=== PATIENT | female | born 1955 | race American Indian/Alaskan Native ===

== ENCOUNTER 2016-09-25 07:32 | Outpatient (CLI) | payer BC ==
--- NOTE | 2016-09-26 07:48 | Vascular Lab Report ---
LOWER EXTREMITY ARTERIAL DUPLEX: REASON FOR EXAM: Peripheral arterial disease with claudication. COMMENTS ON THE RIGHT: Monophasic waveforms are seen proximally. Monophasic waveforms are seen distally. No significant velocity gradients are identified. Calcified plaque is noted in the external iliac and common femoral arteries.. Findings are consistent with abnormal perfusion. Findings are inconsistent with the ability to heal distal wounds. COMMENTS ON THE LEFT: Triphasic waveforms are seen proximally. Biphasic waveforms are seen distally. No significant velocity gradients are identified. No focal significant plaque is identified. Findings are consistent with normal perfusion. Findings are consistent with the ability to heal distal wounds. IMPRESSION: RIGHT: External iliac and common femoral artery occlusive disease. LEFT:Essentially normal arterial flow.
== END 2016-09-25 07:33 | disposition home or self-care (01) ==
LOC: VAS 07:32
PROVIDERS: ATTEND Internal Medicine
DX: I74.5 Embolism and thrombosis of iliac artery (principal); I74.8 Embolism and thrombosis of other arteries
CPT/HCPCS: 93925

== ENCOUNTER 2016-10-24 08:31 | Outpatient (CLI) | payer BC ==
--- NOTE | 2016-10-24 12:31 | Cat Scan Report ---
CT ABDOMEN AND PELVIS WITH CONTRAST: 10/24/16 08:31:00 CLINICAL: Weight loss. COMPARISON: 02/02/14 TECHNIQUE: Volumetric acquisition and 1.25 millimeter scan reconstructions after the uneventful intravenous injection of 100 cc Omnipaque 300. Consent was obtained prior to the administration of contrast. Oral contrast was also given. FINDINGS: Abdomen: The lung bases are clear.Normal liver, bile ducts and gallbladder. The stomach is mildly distended with fluid and air. The gastric wall is thickened in the fundus and body and there is pronounced thickening of the pylorus. No gastric mass or ulcer is identified. The small bowel is normal. The colon is normal and filled with stool.An appendix is not identified. No mass, lymphadenopathy or ascites.The adrenal glands are normal. The right kidney is normal with a nondilated renal collecting system and ureter. An oval solid homogeneously enhancing mass in the center of the left kidney measures 3.6 x 2.2 x 1.6 cm. The mass is adjacent to a normal left renal collecting system. The mass measures 170 Hounsfield units post contrast and demonstrates washout with a density of 80 Hounsfield units on delayed scans. The left ureter is normal. Calcification of the abdominal aorta and iliac arteries. The inferior vena cava is normal. Pelvis: Normal urinary bladder.The uterus is not optimally imaged because of the lack of pelvic fat but it appears to be normal size. Ovaries are not identified. A low rectosigmoid anastomosis is unremarkable. Bone windows demonstrate no bone lesion. IMPRESSION:1. A 3.6 cm central left renal mass is suspicious for primary renal neoplasm. Although it is central, it does not appear to arise within the collecting system. 2. Status post rectosigmoid resection and no suspicion of disease recurrence or metastasis.
== END 2016-10-24 08:32 | disposition home or self-care (01) ==
LOC: SPVIMAG 08:31
PROVIDERS: ATTEND Internal Medicine Gastroenterology
DX: K31.89 Other diseases of stomach and duodenum (principal); R63.4 Abnormal weight loss; N28.89 Other specified disorders of kidney and ureter; K63.89 Other specified diseases of intestine; I70.0 Atherosclerosis of aorta
CPT/HCPCS: 74177; Q9967

== ENCOUNTER 2017-05-01 18:52 | Inpatient (IN) | payer BC ==
[2017-05-01] MEDS ORDERED: NACL 0.9% 1000 ML 1,000 ML ONE ×3 (19:18→20:14)
[2017-05-01] MEDS ORDERED: LEVOPHED DRIP 4 MG/NS 250 ML 4 MG/250 ML BAG IV ONE ×2 (19:30→20:14)
[2017-05-01] MEDS ORDERED: VANCOMYCIN VIAL IV ONE (20:09)
[2017-05-01] MEDS ORDERED: ARTIFICIAL TEARS OPHTH OINT OU PRN (20:09)
[2017-05-01] MEDS ORDERED: VASELINE LIP THERAPY TP PRN (20:09)
[2017-05-01] MEDS ORDERED: NACL 0.9% 1000 ML 2,000 ML IV ONE (20:09)
[2017-05-01] MEDS ORDERED: ZEMURON IV ONE (20:09)
--- NOTE | 2017-05-01 20:15 | Emergency Department Report ---
ED General Adult HPI - General Chief complaint: Dyspnea/Respdistress Stated complaint: ALTERED MENTAL STATUS Time Seen by Provider: 05/01/17 19:14 Source: family, EMS (ems notes not available at time of chart dictation), RN notes reviewed Mode of arrival: Stretcher Limitations: Altered Mental Status - History of Present Illness Initial comments: This is a 61-year-old female, previously unknown to this provider, brought to the hospital by EMS and family for weakness, altered mental status and shortness of breath. History is limited as the patient is obtunded and unable to answer questions. Upon my initial evaluation, patient is obtunded, not protecting her airway, saturating at 87-89% on a nonrebreather. Quick discussion had with close by family, who give verbal permission for aggressive medical management, including intubation and central line placement, if necessary. Patient also hypotensive as well, blood pressure in the 70s. Patient is placed on a nasal cannula at 15 L/m, perceives [id number] ventilation, and IV fluids wide open. Patient is induced with 100 mg of ketamine, and a 7.5 endotracheal tube is inserted by myself using direct laryngoscopy, with a Tara 3 of her discomfort, with one attempt, with no difficulty in complications. Immediately after intubation, patient was prepped for a central line, and a left-sided internal jugular central line was placed by this provider, using ultrasound guidance, with one attempt, no obvious complications. Patient started on norepinephrine through central line, and addition to IV fluids. Found to be hypothermic with a core temperature of 92.3 rectally, therefore medicine. Please encourage sepsis. A noncontrast CT scan of the brain was negative, an x-ray of the chest suggested hyperinflated lung/COPD, which family further corroborated. Patient was disconnected from the ventilator circuit, and chest wall pressure was applied to avoid breath stacking. The patient was then ventilated lung protective strategy, using 6-8 mL/kg of ideal body weight. Patient treated empirically with vancomycin, cefepime, IV fluids, and addition to norepinephrine. Case was discussed with the critical care physician on-call , Dr. Alcocer, who agreed with placement into the intensive care unit. Case was discussed with the Hospital physician, Dr. Mine Galarza, who accepted the patient to the medical service. Patient still on norepinephrine, no urine output as of yet, blood pressure in the 120s, having minimal sedation requirements. Laboratory studies demonstrated renal insufficiency, hypernatremia, troponin leak, no obvious etiology of infection thus far, troponin leak likely secondary to underlying physiologic stress. -: unknown Consistency: constant Improves with: none Worsens with: none Associated Symptoms: confusion, weakness - Related Data Allergies Allergy/AdvReac Type Severity Reaction Status Date / Time No Known Allergies Allergy Unverified 09/25/16 07:33 ED Review of Systems ROS: Stated complaint: ALTERED MENTAL STATUS Other details as noted in HPI Comment: Unobtainable due to pts medical conditions ED Past Medical Hx - Past Medical History Hx of Cancer: Yes (colon 2008) Hx COPD: Yes (emphasema) - Surgical History Additional Surgical History: colon surgery - Social History Smoking Status: Current Every Day Smoker ED Physical Exam - General Limitations: Altered Mental Status General appearance: obtunded - Eye Eye exam: Present: PERRL - ENT ENT exam: Present: mucous membranes dry - Neck Neck exam: Absent: tenderness, meningismus - Respiratory Respiratory exam: Present: respiratory distress, decreased breath sounds - Cardiovascular Cardiovascular Exam: Present: regular rate, normal rhythm - GI/Abdominal GI/Abdominal exam: Present: soft, normal bowel sounds. Absent: distended, tenderness, guarding, rebound, rigid, pulsatile mass - Rectal Rectal exam: Present: normal inspection - External exam: Present: normal external exam - Extremities Exam Extremities exam: Present: normal inspection, normal capillary refill - Back Exam Back exam: Absent: tenderness, CVA tenderness (R) - Neurological Exam Neurological exam: Present: altered - Psychiatric Psychiatric exam: Present: other (nonverbal, and obtunded) - Skin Skin exam: Present: dry ED Course Vital Signs 05/01/17 05/01/17 05/01/17 19:02 20:09 20:18 Temperature 92.4 F L Pulse Rate 71 Respiratory 26 H Rate Blood Pressure 105/39 135/69 05/01/17 05/01/17 05/01/17 21:22 21:26 21:28 Temperature Pulse Rate 63 62 60 Respiratory 14 15 15 Rate Blood Pressure 147/70 98/53 121/79 05/01/17 05/01/17 05/01/17 21:30 21:32 21:34 Temperature Pulse Rate 60 59 L 58 L Respiratory 15 15 15 Rate Blood Pressure 121/79 05/01/17 05/01/1717 21:35 21:36 21:38 Temperature Pulse Rate 59 L 60 60 Respiratory 15 15 15 Rate Blood Pressure 125/78 125/78 125/78 05/01/17 05/01/17 05/01/17 21:40 21:42 21:44 Temperature Pulse Rate 58 L 58 L 57 L Respiratory 15 15 15 Rate Blood Pressure 131/78 104/51 104/51 05/01/17 05/01/17 05/01/17 21:45 21:46 21:48 Temperature Pulse Rate 57 L 57 L 58 L Respiratory 15 15 15 Rate Blood Pressure 127/78 127/78 127/78 05/01/17 05/01/17 05/01/17 21:50 21:51 21:52 Temperature Pulse Rate 61 61 58 L Respiratory 15 15 15 Rate Blood Pressure 155/86 155/86 119/76 05/01/17 05/01/17 05/01/17 21:54 21:55 21:56 Temperature Pulse Rate 58 L 61 59 L Respiratory 15 15 15 Rate Blood Pressure 119/76 127/79 127/79 05/01/17 05/01/17 05/01/17 21:58 22:00 22:02 Temperature Pulse Rate 59 L 60 59 L Respiratory 15 15 15 Rate Blood Pressure 127/79 124/79 124/79 05/01/17 05/01/17 05/01/17 22:04 22:05 22:06 Temperature Pulse Rate 62 61 60 Respiratory 15 15 15 Rate Blood Pressure 124/79 139/93 139/93 05/01/17 05/01/17 05/01/17 22:08 22:10 22:12 Temperature Pulse Rate 56 L 58 L 59 L Respiratory 15 15 15 Rate Blood Pressure 139/93 120/75 120/75 05/01/17 05/01/17 05/01/17 22:14 22:15 22:16 Temperature Pulse Rate 58 L 57 L 58 L Respiratory 15 15 15 Rate Blood Pressure 120/75 123/77 123/77 05/01/17 05/01/17 05/01/17 22:18 22:20 22:22 Temperature Pulse Rate 58 L 60 59 L Respiratory 15 15 16 Rate Blood Pressure 123/77 120/78 120/78 05/01/17 05/01/17 05/01/17 22:24 22:25 22:26 Temperature Pulse Rate 59 L 57 L 57 L Respiratory 15 15 15 Rate Blood Pressure 120/78 121/76 121/76 05/01/17 05/01/17 05/01/17 22:28 22:30 22:32 Temperature Pulse Rate 57 L 56 L 56 L Respiratory 15 15 15 Rate Blood Pressure 121/76 121/76 121/76 05/01/17 05/01/17 05/01/17 22:34 22:36 22:38 Temperature Pulse Rate 57 L 57 L 57 L Respiratory 15 15 15 Rate Blood Pressure 121/76 121/76 121/76 05/01/17 05/01/17 05/01/17 22:40 22:42 22:44 Temperature Pulse Rate 56 L 57 L 59 L Respiratory 15 15 15 Rate Blood Pressure 121/76 121/76 121/76 05/01/17 05/01/17 05/01/17 22:46 22:48 22:58 Temperature Pulse Rate 59 L 55 L 58 L Respiratory 15 15 15 Rate Blood Pressure 121/76 121/76 123/75 05/01/17 05/01/17 05/01/17 23:00 23:02 23:04 Temperature Pulse Rate 59 L 59 L 58 L Respiratory 15 15 15 Rate Blood Pressure 114/72 114/72 114/72 05/01/17 05/01/17 05/01/17 23:05 23:06 23:08 Temperature Pulse Rate 59 L 59 L 59 L Respiratory 15 15 15 Rate Blood Pressure 116/75 116/75 116/75 05/01/17 05/01/17 05/01/17 23:10 23:12 23:14 Temperature Pulse Rate 57 L 61 61 Respiratory 15 15 15 Rate Blood Pressure 117/74 117/74 117/74 05/01/17 05/01/17 05/01/17 23:15 23:16 23:18 Temperature Pulse Rate 59 L 59 L 58 L Respiratory 15 15 15 Rate Blood Pressure 121/77 121/77 121/77 05/01/17 05/01/17 05/01/17 23:20 23:22 23:24 Temperature Pulse Rate 57 L 61 67 Respiratory 15 15 15 Rate Blood Pressure 119/72 119/72 123/75 05/01/17 05/01/17 05/01/17 23:26 23:28 23:30 Temperature Pulse Rate 70 65 65 Respiratory 15 16 14 Rate Blood Pressure 123/75 123/75 123/75 05/01/17 05/01/17 05/01/17 23:32 23:34 23:36 Temperature Pulse Rate 63 62 60 Respiratory 15 15 15 Rate Blood Pressure 123/75 123/75 123/75 05/01/17 05/01/17 05/01/17 23:38 23:40 23:42 Temperature Pulse Rate 61 62 60 Respiratory 15 15 15 Rate Blood Pressure 123/75 123/75 123/75 05/01/17 05/01/17 05/01/17 23:44 23:46 23:48 Temperature Pulse Rate 61 58 L 61 Respiratory 15 15 15 Rate Blood Pressure 123/75 123/75 123/75 05/01/17 05/01/17 05/01/17 23:50 23:52 23:54 Temperature Pulse Rate 62 62 62 Respiratory 15 15 16 Rate Blood Pressure 123/75 123/75 123/75 05/01/17 05/01/17 05/02/17 23:56 23:58 00:00 Temperature Pulse Rate 61 60 62 Respiratory 14 15 15 Rate Blood Pressure 123/75 123/75 123/75 05/02/17 05/02/17 05/02/17 00:02 00:04 00:06 Temperature Pulse Rate 61 62 61 Respiratory 15 15 14 Rate Blood Pressure 123/75 123/75 123/75 05/02/17 05/02/17 05/02/17 00:08 00:10 00:12 Temperature Pulse Rate 61 62 66 Respiratory 16 15 16 Rate Blood Pressure 123/75 123/75 123/75 05/02/17 05/02/17 05/02/17 00:14 00:16 00:18 Temperature Pulse Rate 63 65 65 Respiratory 15 14 14 Rate Blood Pressure 123/75 123/75 123/75 05/02/17 05/02/17 05/02/17 00:20 00:22 00:24 Temperature Pulse Rate 66 66 58 L Respiratory 13 15 15 Rate Blood Pressure 123/75 123/75 123/75 05/02/17 05/02/17 05/02/17 00:26 00:28 00:29 Temperature Pulse Rate 57 L 58 L 60 Respiratory 15 14 14 Rate Blood Pressure 123/75 123/75 101/53 05/02/17 05/02/17 05/02/17 00:30 00:32 00:34 Temperature Pulse Rate 60 62 60 Respiratory 14 14 15 Rate Blood Pressure 101/53 101/53 101/53 05/02/17 05/02/17 05/02/17 00:35 00:36 00:38 Temperature Pulse Rate 63 63 63 Respiratory 16 15 14 Rate Blood Pressure 99/59 99/59 99/59 05/02/17 05/02/17 05/02/17 00:40 00:42 00:44 Temperature Pulse Rate 65 61 64 Respiratory 13 15 15 Rate Blood Pressure 109/67 109/67 109/67 05/02/17 05/02/17 05/02/17 00:45 00:46 00:48 Temperature Pulse Rate 61 63 62 Respiratory 15 15 15 Rate Blood Pressure 96/58 96/58 96/58 05/02/17 05/02/17 05/02/17 00:50 00:52 00:54 Temperature Pulse Rate 62 65 62 Respiratory 16 15 14 Rate Blood Pressure 94/50 94/50 94/50 05/02/17 05/02/17 05/02/17 00:55 00:56 00:58 Temperature Pulse Rate 63 63 60 Respiratory 15 15 15 Rate Blood Pressure 99/57 99/57 99/57 05/02/17 05/02/17 01:00 01:02 Temperature 93.1 F L Pulse Rate 62 Respiratory 15 Rate Blood Pressure 104/55 - Reevaluation(s) Reevaluation #1: 05/01/17 23:07 EKG is morphologically abnormal, with poor R progression, no prior for comparison, and nonspecific ST morphology in V2/V3. Case is discussed with cardiology, Dr. Ricardo Galarza, and he is presented the patient's history, physical , pertinent laboratory findings and EKG findings. The patient's EKG at this point in time does not meet ST elevation DE criteria, and given her hypothermia and sepsis-like picture, risks of heparinization and bleeding outweigh benefits , and we will not systemically anticoagulate at this time, cardiology is in agreement with this, and they will follow in consultation. Repeat EKG is pending. Reevaluation #2: 05/02/17 01:18 Patient still remains unchanged hemodynamically, repeat EKG morphologically unchanged, patient going to the ICU, will defer further management to the inpatient team. Still hypothermic, therefore we will withhold systemic anticoagulation - Central Line Placement Left IJ Consent Obtained: written consent, emergent situation Time Out Performed: Yes Patient Placed on Monitor/Pulse Ox: Yes MD Prep: mask, gown, gloves Central Line Prep: Povidone-Iodine 1%, Chlorhexidine scrub, sterile drapes applied Ultrasound Used for Placement: Yes Central Line Lumen Inserted: triple Bloods Obtained for Lab: Yes Central Line Position: good blood return, all ports aspirated, flus, sutured in place with 2-0 Dressing Applied: Tegaderm Post Procedure X-Ray: tip of catheter in good p Patient Tolerated Procedure: well Complications: none - Intubation Time Out Performed: Yes Sedative: Ketamine Mg Given: 100 Paralytic: Rocuronium Mg Given: 100 Laryngoscope: Tara Size: 3 ET Tube Size: 7.5 Tube Secured Location: teeth Tube Placement Confirmation: visualized tube passing t Patient Tolerated Procedure: well Intubation Complications: none ED Medical Decision Making - Lab Data Result diagrams: 05/01/17 20:10 05/01/17 20:10 Vital Signs 05/01/17 05/01/17 05/01/17 19:02 20:18 22:12 Pulse Rate 71 59 L Respiratory 26 H Rate Blood Pressure 105/39 135/69 123/77 Lab Results 05/01/17 05/01/17 05/01/17 Range/Units 20:10 20:10 20:10 WBC 12.7 H (4.5-11.0) K/mm3 RBC 2.62 L (3.65-5.03) M/mm3 Hgb 9.1 L (10.1-14.3) gm/dl Hct 28.9 L (30.3-42.9) % MCV 110 H (79-97) fl MCH 35 H (28-32) pg MCHC 32 (30-34) % RDW 14.4 (13.2-15.2) % Plt Count 149 (140-440) K/mm3 Lymph % (Auto) 2.5 L (13.4-35.0) % [place] % (Auto) 9.1 H (0.0-7.3) % Eos % (Auto) 0.0 (0.0-4.3) % Baso % (Auto) 0.2 (0.0-1.8) % Lymph # 0.3 L (1.2-5.4) K/mm3 [place] # 1.2 H (0.0-0.8) K/mm3 Eos # 0.0 (0.0-0.4) K/mm3 Baso # 0.0 (0.0-0.1) K/mm3 Seg Neutrophils % 88.2 H (40.0-70.0) % Seg Neutrophils # 11.2 H (1.8-7.7) K/mm3 PT (12.2-14.9) Sec. INR (0.87-1.13) APTT (24.2-36.6) Sec. POC ABG pH (7.35-7.45) POC ABG pCO2 (35-45) POC ABG pO2 (80-105) POC ABG HCO3 POC ABG Total CO2 POC ABG O2 Sat POC ABG Base Excess FiO2 % Sodium 150 H (137-145) mmol/L Potassium 4.5 (3.6-5.0) mmol/L Chloride 106.6 (98-107) mmol/L Carbon Dioxide 23 (22-30) mmol/L Anion Gap 25 mmol/L BUN 49 H (7-17) mg/dL Creatinine 1.4 H (0.7-1.2) mg/dL Estimated GFR 46 ml/min BUN/Creatinine Ratio 35 % Glucose 79 (65-100) mg/dL Lactic Acid 7.90 H* (0.7-2.0) mmol/L Calcium 6.9 L (8.4-10.2) mg/dL Magnesium (1.7-2.3) mg/dL Total Creatine Kinase (30-135) units/L Troponin T 0.046 H (0.00-0.029) ng/mL Triglycerides 77 (2-149) mg/dL Cholesterol 91 (50-199) mg/dL LDL Cholesterol Direct 39 L (50-130) mg/dL HDL Cholesterol 37 L (40-59) mg/dL Cholesterol/HDL Ratio 2.45 % 05/01/17 05/01/17 05/01/17 Range/Units 20:10 20:10 21:25 WBC (4.5-11.0) K/mm3 RBC (3.65-5.03) M/mm3 Hgb (10.1-14.3) gm/dl Hct (30.3-42.9) % MCV (79-97) fl MCH (28-32) pg MCHC (30-34) % RDW (13.2-15.2) % Plt Count (140-440) K/mm3 Lymph % (Auto) (13.4-35.0) % [place] % (Auto) (0.0-7.3) % Eos % (Auto) (0.0-4.3) % Baso % (Auto) (0.0-1.8) % Lymph # (1.2-5.4) K/mm3 [place] # (0.0-0.8) K/mm3 Eos # (0.0-0.4) K/mm3 Baso # (0.0-0.1) K/mm3 Seg Neutrophils % (40.0-70.0) % Seg Neutrophils # (1.8-7.7) K/mm3 PT 21.4 H (12.2-14.9) Sec. INR 1.76 H (0.87-1.13) APTT 28.7 (24.2-36.6) Sec. POC ABG pH (7.35-7.45) POC ABG pCO2 (35-45) POC ABG pO2 (80-105) POC ABG HCO3 POC ABG Total CO2 POC ABG O2 Sat POC ABG Base Excess FiO2 % Sodium (137-145) mmol/L Potassium (3.6-5.0) mmol/L Chloride (98-107) mmol/L Carbon Dioxide (22-30) mmol/L Anion Gap mmol/L BUN (7-17) mg/dL Creatinine (0.7-1.2) mg/dL Estimated GFR ml/min BUN/Creatinine Ratio % Glucose (65-100) mg/dL Lactic Acid 5.30 H* (0.7-2.0) mmol/L Calcium (8.4-10.2) mg/dL Magnesium 1.90 (1.7-2.3) mg/dL Total Creatine Kinase 216 H (30-135) units/L Troponin T (0.00-0.029) ng/mL Triglycerides (2-149) mg/dL Cholesterol (50-199) mg/dL LDL Cholesterol Direct (50-130) mg/dL HDL Cholesterol (40-59) mg/dL Cholesterol/HDL Ratio % 05/01/ Range/Units 21:34 WBC (4.5-11.0) K/mm3 RBC (3.65-5.03) M/mm3 Hgb (10.1-14.3) gm/dl Hct (30.3-42.9) % MCV (79-97) fl MCH (28-32) pg MCHC (30-34) % RDW (13.2-15.2) % Plt Count (140-440) K/mm3 Lymph % (Auto) (13.4-35.0) % [place] % (Auto) (0.0-7.3) % Eos % (Auto) (0.0-4.3) % Baso % (Auto) (0.0-1.8) % Lymph # (1.2-5.4) K/mm3 [place] # (0.0-0.8) K/mm3 Eos # (0.0-0.4) K/mm3 Baso # (0.0-0.1) K/mm3 Seg Neutrophils % (40.0-70.0) % Seg Neutrophils # (1.8-7.7) K/mm3 PT (12.2-14.9) Sec. INR (0.87-1.13) APTT (24.2-36.6) Sec. POC ABG pH 7.371 (7.35-7.45) POC ABG pCO2 44.0 (35-45) POC ABG pO2 223 H (80-105) POC ABG HCO3 25.5 POC ABG Total CO2 27 POC ABG O2 Sat 100 POC ABG Base Excess 0 FiO2 50 % Sodium (137-145) mmol/L Potassium (3.6-5.0) mmol/L Chloride (98-107) mmol/L Carbon Dioxide (22-30) mmol/L Anion Gap mmol/L BUN (7-17) mg/dL Creatinine (0.7-1.2) mg/dL Estimated GFR ml/min BUN/Creatinine Ratio % Glucose (65-100) mg/dL Lactic Acid (0.7-2.0) mmol/L Calcium (8.4-10.2) mg/dL Magnesium (1.7-2.3) mg/dL Total Creatine Kinase (30-135) units/L Troponin T (0.00-0.029) ng/mL Triglycerides (2-149) mg/dL Cholesterol (50-199) mg/dL LDL Cholesterol Direct (50-130) mg/dL HDL Cholesterol (40-59) mg/dL Cholesterol/HDL Ratio % - EKG Data -: EKG Interpreted by Me - Radiology Data Radiology results: image reviewed interpreted by me: X-ray of the chest negative, endotracheal tube, central line in place, noncontrast CT scan of the brain negative for acute disease Critical Care Time: Yes Critical care time in (mins) excluding proc time.: 60 Critical care attestation.: If time is entered above; I have spent that time in minutes in the direct care of this critically ill patient, excluding procedure time. ED Disposition Clinical Impression: Hypothermia, Respiratory failure, SIRS (systemic inflammatory response syndrome ) Disposition: [id number] OP ADMIT IP TO THIS HOSP Is pt being admited?: Yes Condition: Critical
[2017-05-01 20:40] LABS: Basophils % (Auto) 0.2 % (0.0-1.8); Hematocrit 28.9 % (30.3-42.9); Hemoglobin 9.1 gm/dl (10.1-14.3); Mean Corpuscular HGB Conc 32 % (30-34); Mean Corpuscular Hemoglobin 35 pg (28-32); Mean Corpuscular Volume 110 fl (79-97); Platelet Count 149 K/mm3 (140-440); Red Blood Count 2.62 M/mm3 (3.65-5.03); Red Cell Distribution Width 14.4 % (13.2-15.2); White Blood Count 12.7 K/mm3 (4.5-11.0)
[2017-05-01 20:52] LABS: INR 1.76 (0.87-1.13); Partial Thromboplastin Time 28.7 Sec. (24.2-36.6)
--- NOTE | 2017-05-01 20:54 | XRay Report ---
FINAL REPORT PROCEDURE: XR CHEST 1V AP TECHNIQUE: Chest radiograph anteroposterior view. CPT 77066 HISTORY: sob COMPARISON: No prior studies are available for comparison. FINDINGS: Heart: Normal. Mediastinum/Vessels: Normal. Lungs/Pleural space: There is advanced COPD. There are no active infiltrates, effusions or pneumothoraces.. Bony thorax: No acute osseous abnormality. Life support devices: Endotracheal tube is in the mid trachea. There is a left internal jugular vein central venous catheter. The tip is in the superior vena cava.. IMPRESSION: Heart size is normal.. There is advanced COPD. There are no active infiltrates, effusions or pneumothoraces.. Endotracheal tube is in the mid trachea. There is a left internal jugular vein central venous catheter. The tip is in the superior vena cava..
[2017-05-01 21:00] LABS: Calcium 6.9 mg/dL (8.4-10.2); Chloride 106.6 mmol/L (98-107); Potassium 4.5 mmol/L (3.6-5.0)
[2017-05-01] MEDS ORDERED: VANCOMYCIN/NS 1 GM/250 ML 1 GM/250 ML BAG IV ONE (21:00)
[2017-05-01] MEDS ORDERED: KETALAR IV ONE (21:00)
[2017-05-01] MEDS ORDERED: NACL 0.9% 500 ML IV SCH (21:00)
[2017-05-01] MEDS ORDERED: VANCOMYCIN PHARMACY TO DOSE IV SCH ×2 (21:00→23:00)
[2017-05-01] MEDS ORDERED: fentaNYL DRIP Premix 2,000 MCG/100 ML BAG IV SCH (21:00)
[2017-05-01 21:02] LABS: Magnesium 1.9 mg/dL (1.7-2.3)
[2017-05-01] MEDS ORDERED: MAXIPIME/NS 2 GM/100 ML 2 GM/100 ML BAG IV ONE (21:18)
--- NOTE | 2017-05-01 21:30 | Cat Scan Report ---
FINAL REPORT PROCEDURE: CT HEAD/BRAIN WO CON TECHNIQUE: Computerized tomography of the head was performed without contrast material. HISTORY: ams COMPARISON: No prior studies are available for comparison. FINDINGS: Skull and scalp: Normal. Paranasal sinuses: Normal. Ventricles and subarachnoid spaces: Normal. Cerebrum: No evidence of hemorrhage, acute infarction or mass . Cerebellum and brainstem: No evidence of hemorrhage, acute infarction or mass. Vasculature: Normal. Comments: None. IMPRESSION: Normal Examination
[2017-05-01 21:37] LABS: ISTAT Base Excess 0; ISTAT HCO3 25.5; ISTAT PH 7.371 (7.35-7.45); ISTAT PO2 223 (80-105); ISTAT SO2 100; ISTAT TCO2 27
[2017-05-01] MEDS ORDERED: NACL 0.9% 1000 ML 1,000 ML IV ONE (22:09)
[2017-05-01] MEDS ORDERED: TYLENOL PO PRN (22:48)
[2017-05-01] MEDS ORDERED: ZOFRAN IV PRN (22:48)
--- NOTE | 2017-05-01 22:51 | History and Physical Report ---
History of Present Illness Date of examination: 05/01/17 History of present illness: Social [id number] boy was brought to the emergency room for shortness of breath. She was intubated in the emergency room. Spoke with the nieces gave some information, medical records were obtained from [facility]. Patient has a history of hypertension, colon cancer and was recently discharged from [facility]. She was scheduled for EGD and colonoscopy but this was aborted because the patient was found to be hypoxic and short of breath. She was sent to the hospital for admission where she was treated for respiratory failure secondary to COPD, sepsis. Her EGD shows a duodenal ulcer and colonoscopy shows internal and external hemorrhoids. Review of system is unobtainable PAST MEDICAL HISTORY: Hypertension, COPD, Colon cancer PAST SURGICAL HISTORY: Colon resection FAMILY HISTORY: Hypertension SOCIAL HISTORY unknown Medications and Allergies Allergies Allergy/AdvReac Type Severity Reaction Status Date / Time No Known Allergies Allergy Unverified 09/25/16 07:33 Home Medications Medication Instructions Recorded Confirmed Last Taken Type Aclidinium [place] [Tudorza 400 mcg INHALATION QDAY 05/03/17 05/03/17 Unknown History Pressair] Amlodipine Besylate 5 mg PO DAILY 05/03/17 05/03/17 Unknown History Cyproheptadine 4 mg PO DAILY 05/03/17 05/03/17 Unknown History Fluticasone/Vilanterol [Breo 100 mcg INHALATION QDAC 05/03/17 05/03/17 Unknown History Ellipta 100-25 Mcg INH] Active Meds: Active Medications Acetaminophen (Tylenol) 650 mg PO Q4H PRN PRN Reason: Pain MILD(1-3)/Fever >100.5/BATISTA Enoxaparin Sodium (Lovenox) 30 mg SUB-Q QDAY MIRTHA Hydrophilic Ointment (Vaseline Lip Therapy) 1 applic TP Q2HR PRN PRN Reason: Dry Lips Fentanyl Citrate (Fentanyl Drip Premix) 2,000 mcg in 100 mls @ 2.223 mls/hr IV TITR MIRTHA; 1 MCG/KG/HR PRN Reason: Protocol Norepinephrine (Levophed Drip 4 Mg/Ns 250 Ml) 4 mg in 250 mls @ 7.5 mls/hr IV TITR ONE; 2 MCG/MIN PRN Reason: Protocol Stop: 05/03/17 05:33 Sodium Chloride (Nacl 0.9% 1000 Ml) 1,000 mls @ 999 mls/hr IV BOLUS ONE Stop: 05/01/17 23:09 Dextrose/Sodium Chloride (D5/0.45ns) 1,000 mls @ 150 mls/hr IV DIRECT MIRTHA Multi-Ingred Cream/Lotion/Oil/Oint (Artificial Tears Ophth Oint) 1 applic OU Q4HR PRN PRN Reason: Dry Eye(s) Ondansetron HCl (Zofran) 4 mg IV Q8H PRN PRN Reason: N/V unrelieved by Reglan Sodium Chloride (Nacl 0.9% 500 Ml) 1 ml IV DIRECT MIRTHA Vancomycin HCl (Vancomycin Pharmacy To Dose) 1 each IV PKCONSULT MIRHTA PRN Reason: Protocol Exam - Physical Exam Narrative exam: Gen. appearance: Patient lying in bed in no acute distress HEENT: Normocephalic/atraumatic, pupils equal round reactive to light, extra alkaline movement intact, no scleral icterus, no JVD or thyromegaly or nodule, neck is supple, mucous membrane moist, no erythema or exudate Heart: S1-S2, regular rate and rhythm Lungs: Decreased breath sound bilateral breathing comfortable Abdomen: Positive bowel sounds, nontender, nondistended, no organomegaly Extremities: No edema, cyanosis, clubbing Neuro:: Oriented 3 , cranial nerves II-12 intact, speech, motor intact Skin: No rash, nodules, warm dry - Constitutional Vitals: Temp Pulse Resp BP Pulse Ox 59 L 26 H 123/77 05/01/17 22:12 05/01/17 19:02 05/01/17 22:12 Results - Labs CBC & Chem 7: 05/06/17 04:45 05/06/17 04:45 Labs: Abnormal lab results 05/01/17 05/01/17 05/01/17 Range/Units 20:10 20:10 20:10 WBC 12.7 H (4.5-11.0) K/mm3 RBC 2.62 L (3.65-5.03) M/mm3 Hgb 9.1 L (10.1-14.3) gm/dl Hct 28.9 L (30.3-42.9) % MCV 110 H (79-97) fl MCH 35 H (28-32) pg Lymph % (Auto) 2.5 L (13.4-35.0) % [place] % (Auto) 9.1 H (0.0-7.3) % Lymph # 0.3 L (1.2-5.4) K/mm3 [place] # 1.2 H (0.0-0.8) K/mm3 Seg Neutrophils % 88.2 H (40.0-70.0) % Seg Neutrophils # 11.2 H (1.8-7.7) K/mm3 PT (12.2-14.9) Sec. INR (0.87-1.13) POC ABG pO2 (80-105) Sodium 150 H (137-145) mmol/L BUN 49 H (7-17) mg/dL Creatinine 1.4 H (0.7-1.2) mg/dL Lactic Acid 7.90 H* (0.7-2.0) mmol/L Calcium 6.9 L (8.4-10.2) mg/dL Total Creatine Kinase (30-135) units/L Troponin T 0.046 H (0.00-0.029) ng/mL LDL Cholesterol Direct 39 L (50-130) mg/dL HDL Cholesterol 37 L (40-59) mg/dL 05/01/17 05/01/17 05/01/17 Range/Units 20:10 20:10 21:25 WBC (4.5-11.0) K/mm3 RBC (3.65-5.03) M/mm3 Hgb (10.1-14.3) gm/dl Hct (30.3-42.9) % MCV (79-97) fl MCH (28-32) pg Lymph % (Auto) (13.4-35.0) % [place] % (Auto) (0.0-7.3) % Lymph # (1.2-5.4) K/mm3 [place] # (0.0-0.8) K/mm3 Seg Neutrophils % (40.0-70.0) % Seg Neutrophils # (1.8-7.7) K/mm3 PT 21.4 H (12.2-14.9) Sec. INR 1.76 H (0.87-1.13) POC ABG pO2 (80-105) Sodium (137-145) mmol/L BUN (7-17) mg/dL Creatinine (0.7-1.2) mg/dL Lactic Acid 5.30 H* (0.7-2.0) mmol/L Calcium (8.4-10.2) mg/dL Total Creatine Kinase 216 H (30-135) units/L Troponin T (0.00-0.029) ng/mL LDL Cholesterol Direct (50-130) mg/dL HDL Cholesterol (40-59) mg/dL //17 Range/Units 21:34 WBC (4.5-11.0) K/mm3 RBC (3.65-5.03) M/mm3 Hgb (10.1-14.3) gm/dl Hct (30.3-42.9) % MCV (79-97) fl MCH (28-32) pg Lymph % (Auto) (13.4-35.0) % [place] % (Auto) (0.0-7.3) % Lymph # (1.2-5.4) K/mm3 [place] # (0.0-0.8) K/mm3 Seg Neutrophils % (40.0-70.0) % Seg Neutrophils # (1.8-7.7) K/mm3 PT (12.2-14.9) Sec. INR (0.87-1.13) POC ABG pO2 223 H (80-105) Sodium (137-145) mmol/L BUN (7-17) mg/dL Creatinine (0.7-1.2) mg/dL Lactic Acid (0.7-2.0) mmol/L Calcium (8.4-10.2) mg/dL Total Creatine Kinase (30-135) units/L Troponin T (0.00-0.029) ng/mL LDL Cholesterol Direct (50-130) mg/dL HDL Cholesterol (40-59) mg/dL - Imaging and Cardiology EKG: image reviewed Chest x-ray: image reviewed CT Scan - head: report reviewed Assessment and Plan Assessment Acute respiratory failure Sepsis COPD exacerbation Hypernatremia and Acute renal insufficiency Elevated troponin Coagulopathy Plan Admit to medicine Continue IV fluids, Levophed, IV antibiotic Follow lactate level, blood cultures Start high-dose steroids, nebulized treatment Monitor sodium level, kidney function, cardiac enzymes, d-dimer Recent echo was done at [facility], will not repeat Consult pulmonary DVT prophylaxis initiated
[2017-05-01] MEDS ORDERED: ZOSYN NICU IV SCH (23:30)
[2017-05-01] MEDS ORDERED: WATER IV SCH (23:30)
[2017-05-01] MEDS ORDERED: STERILE IV SCH (23:30)
[2017-05-02] MEDS ORDERED: LEVOPHED DRIP 4 MG/NS 250 ML 4 MG/250 ML BAG IV ONE (00:20)
[2017-05-02] MEDS: D5/0.45NS 1,000 ML IV SCH ×2 (00:33→09:33)
[2017-05-02] MEDS ORDERED: ZOSYN/NS 3.375GM/50ML 3.375 GM/50 ML BAG IV ONE (00:47)
[2017-05-02] MEDS: ZOSYN/NS 3.375GM/50ML 3.375 GM/50 ML BAG IV SCH ×3 (01:10→18:33)
[2017-05-02] MEDS ORDERED: fentaNYL DRIP Premix 2,000 MCG/100 ML BAG IV ONE (02:37)
[2017-05-02] MEDS: LEVOPHED DRIP 4 MG/NS 250 ML 4 MG/250 ML BAG IV SCH ×7 (04:30→22:08)
[2017-05-02 05:26] LABS: Bilirubin,Urine NEG (Negative); Blood,Urine MOD (Negative); Ketones,Urine NEG (Negative); Leukocyte Esterase,Urine NEG (Negative); Mucus,Urine FEW /HPF; Nitrite,Urine NEG (Negative); Urobilinogen,Urine < 2.0 mg/dL (<2.0)
[2017-05-02 05:45] LABS: Hematocrit 34.7 % (30.3-42.9); Hemoglobin 11.2 gm/dl (10.1-14.3); Mean Corpuscular HGB Conc 32 % (30-34); Mean Corpuscular Hemoglobin 35 pg (28-32); Mean Corpuscular Volume 108 fl (79-97); Platelet Count 177 K/mm3 (140-440); Red Blood Count 3.22 M/mm3 (3.65-5.03); Red Cell Distribution Width 14.4 % (13.2-15.2); White Blood Count 22.7 K/mm3 (4.5-11.0)
[2017-05-02 05:57] LABS: ISTAT Base Excess -1; ISTAT HCO3 26.3; ISTAT PCO2 57.3 (35-45); ISTAT PH 7.269 (7.35-7.45); ISTAT PO2 69 (80-105); ISTAT SO2 90; ISTAT TCO2 28
[2017-05-02 06:10] LABS: Calcium 6.8 mg/dL (8.4-10.2); Chloride 111.3 mmol/L (98-107); Potassium 4.6 mmol/L (3.6-5.0)
[2017-05-02 06:28] LABS: Basophils % (Manual) 0 % (0.0-1.8); Blastocytes % (Manual) 0 %; Eosinophils % (Manual) 0 % (0.0-4.3)
[2017-05-02 06:30] LABS: Diff Status Complete; Macrocytosis Few; Platelet Estimate Consistent w Auto
--- NOTE | 2017-05-02 07:26 | XRay Report ---
AP CHEST: HISTORY: Followup respiratory failure Endotracheal tube and left venous catheter remain in the same position. The lungs are hyperinflated but clear. Heart and mediastinal structures remain unremarkable. IMPRESSION: No change.
[2017-05-02 09:01] LABS: ISTAT Base Excess -2; ISTAT HCO3 23.5; ISTAT PCO2 40.3 (35-45); ISTAT PH 7.373 (7.35-7.45); ISTAT PO2 90 (80-105); ISTAT SO2 97; ISTAT TCO2 25
--- NOTE | 2017-05-02 09:30 | Consultation ---
History of Present Illness Consult date: 05/02/17 Requesting physician: TRENA RAPHAEL Reason for consult: COPD, other (Acute Hypoxemic Respiratory Failure on MVS; Sepsis Syndrome) History of present illness: PULMONARY/CCM CONSULT NOTE (Full dictation # [id number]) Please see dictated notes for full details Medications and Allergies Allergies Allergy/AdvReac Type Severity Reaction Status Date / Time No Known Allergies Allergy Unverified 09/25/16 07:33 Active Meds: Active Medications Acetaminophen (Tylenol) 650 mg PO Q4H PRN PRN Reason: Pain MILD(1-3)/Fever >100.5/BATISTA Famotidine (Pepcid) 20 mg IV DAILY MIRTHA Hydrophilic Ointment (Vaseline Lip Therapy) 1 applic TP Q2HR PRN PRN Reason: Dry Lips Fentanyl Citrate (Fentanyl Drip Premix) 2,000 mcg in 100 mls @ 2.223 mls/hr IV TITR MIRTHA; 1 MCG/KG/HR PRN Reason: Protocol Last Admin: 05/02/17 03:15 Dose: 1 mcg/kg/hr, 2.223 mls/hr Dextrose/Sodium Chloride (D5/0.45ns) 1,000 mls @ 150 mls/hr IV DIRECT MIRTHA Last Admin: 05/02/17 00:33 Dose: 150 mls/hr Piperacillin Sod/Tazobactam Sod (Zosyn/Ns 3.375gm/50ml) 3.375 gm in 50 mls @ 100 mls/hr IV Q8H MIRTHA Last Admin: 05/02/17 01:10 Dose: 100 mls/hr Norepinephrine (Levophed Drip 4 Mg/Ns 250 Ml) 4 mg in 250 mls @ 82.5 mls/hr IV TITR MIRTHA; 22 MCG/MIN PRN Reason: Protocol Last Admin: 05/02/17 07:02 Dose: 30 mcg/min, 112.5 mls/hr Vancomycin HCl (Vancomycin/Ns 1 Gm/250 Ml) 1 gm in 250 mls @ 166.667 mls/hr IV Q24H MIRTHA Methylprednisolone Sodium Succinate (Solu-Medrol) 125 mg IV Q6HR MIRTHA Last Admin: 05/02/17 06:07 Dose: 125 mg Multi-Ingred Cream/Lotion/Oil/Oint (Artificial Tears Ophth Oint) 1 applic OU Q4HR PRN PRN Reason: Dry Eye(s) Ondansetron HCl (Zofran) 4 mg IV Q8H PRN PRN Reason: N/V unrelieved by Reglan Pneumococcal Polyvalent Vaccine (Pneumovax 23) 0.5 ml IM .ONCE ONE Stop: 05/02/17 12:01 Sodium Chloride (Nacl 0.9% 500 Ml) 1 ml IV DIRECT MIRTHA Vancomycin HCl (Vancomycin Pharmacy To Dose) 1 each IV PKCONSULT MIRTHA PRN Reason: Protocol Physical Examination Vital signs: Vital Signs Pulse Resp BP 71 26 H 105/39 05/01/17 19:02 05/01/17 19:02 05/01/17 19:02 Results - Laboratory Findings CBC and BMP: 05/02/17 05:15 05/02/17 05:15 ABG POC ABG pH 7.373 (7.35-7.45) 05/02/17 08:59 POC ABG pCO2 40.3 (35-45) 05/02/17 08:59 POC ABG pO2 90 (80-105) 05/02/17 08:59 POC ABG HCO3 23.5 05/02/17 08:59 POC ABG Total CO2 25 05/02/17 08:59 POC ABG O2 Sat 97 05/02/17 08:59 PT/INR, D-dimer PT 21.4 Sec. (12.2-14.9) H 05/01/17 20:10 INR 1.76 (0.87-1.13) H 05/01/17 20:10 D-Dimer 577.80 ng/mlDDU (0-234) H 05/01/17 23:53 Abnormal lab findings: Abnormal Labs 05/01/17 05/02/17 05/02/17 23:53 04:51 05:15 WBC 22.7 H RBC 3.22 L MCV 108 H MCH 35 H Seg Neuts % (Manual) 76.0 H Lymphocytes % (Manual) 1.0 L Nucleated RBC % 1.0 H Seg Neutrophils # Man 17.3 H Lymphocytes # (Manual) 0.2 L D-Dimer 577.80 H POC ABG pH 7.269 L POC ABG pCO2 57.3 H POC ABG pO2 69 L Sodium Chloride BUN Creatinine Glucose Calcium Troponin T 05/02/17 05/02/17 05:15 05:15 WBC RBC MCV MCH Seg Neuts % (Manual) Lymphocytes % (Manual) Nucleated RBC % Seg Neutrophils # Man Lymphocytes # (Manual) D-Dimer POC ABG pH POC ABG pCO2 POC ABG pO2 Sodium 151 H Chloride 111.3 H BUN 59 H Creatinine 1.4 H Glucose 212 H Calcium 6.8 L Troponin T 0.079 H D
[2017-05-02] MEDS: PEPCID IV SCH (09:36)
[2017-05-02] MEDS ORDERED: VANCOMYCIN/NS 1 GM/250 ML 1 GM/250 ML BAG IV SCH (10:00)
[2017-05-02] MEDS ORDERED: LOVENOX SUB-Q SCH (10:00)
--- NOTE | 2017-05-02 10:40 | Consultation ---
History of Present Illness Consult date: 05/02/17 Consult reason: shortness of breath History of present illness: Patient admitted with respiratory failure secondary to COPD exacerbation. Patient is known to have advanced emphysema. Patient was recently discharged from [facility] where she had an echo and stress test revealing normal LVEF and no evidence of ischemia. Patient has an abnormal baseline ECG here and at [place]. Tele is showing paroxysmal episodes of junctional rhythm that is resolving on IV levophed. Patient is currently on 10 mcg/min. Patient is responsive to verbal stimulation. Troponin also noted elevated at [place] Past History Past Medical History: COPD, hypertension, other (colon cancer) Past Surgical History: Other (colon resection) Social history: no significant social history Family history: no significant family history Medications and Allergies Allergies Allergy/AdvReac Type Severity Reaction Status Date / Time No Known Allergies Allergy Unverified 09/25/16 07:33 Active Meds: Active Medications Acetaminophen (Tylenol) 650 mg PO Q4H PRN PRN Reason: Pain MILD(1-3)/Fever >100.5/BATISTA Enoxaparin Sodium (Lovenox) 30 mg SUB-Q QDAY MIRTHA Famotidine (Pepcid) 20 mg IV DAILY MIRTHA Last Admin: 05/02/17 09:36 Dose: 20 mg Hydrophilic Ointment (Vaseline Lip Therapy) 1 applic TP Q2HR PRN PRN Reason: Dry Lips Fentanyl Citrate (Fentanyl Drip Premix) 2,000 mcg in 100 mls @ 2.223 mls/hr IV TITR MIRTHA; 1 MCG/KG/HR PRN Reason: Protocol Last Admin: 05/02/17 03:15 Dose: 1 mcg/kg/hr, 2.223 mls/hr Dextrose/Sodium Chloride (D5/0.45ns) 1,000 mls @ 150 mls/hr IV DIRECT MIRTHA Last Admin: 05/02/17 09:33 Dose: 150 mls/hr Piperacillin Sod/Tazobactam Sod (Zosyn/Ns 3.375gm/50ml) 3.375 gm in 50 mls @ 100 mls/hr IV Q8H MIRTHA Last Admin: 05/02/17 09:34 Dose: 100 mls/hr Norepinephrine (Levophed Drip 4 Mg/Ns 250 Ml) 4 mg in 250 mls @ 82.5 mls/hr IV TITR MIRTHA; 22 MCG/MIN PRN Reason: Protocol Last Admin: 05/02/17 09:34 Dose: 20 mcg/min, 75 mls/hr Vancomycin HCl (Vancomycin/Ns 1 Gm/250 Ml) 1 gm in 250 mls @ 166.667 mls/hr IV Q24H [facility] Lactated Ringer's (Lactated Ringers) 1,000 mls @ 100 mls/hr IV DIRECT MIRTHA Methylprednisolone Sodium Succinate (Solu-Medrol) 60 mg IV Q8HR [facility] Multi-Ingred Cream/Lotion/Oil/Oint (Artificial Tears Ophth Oint) 1 applic OU Q4HR PRN PRN Reason: Dry Eye(s) Ondansetron HCl (Zofran) 4 mg IV Q8H PRN PRN Reason: N/V unrelieved by Reglan Pneumococcal Polyvalent Vaccine (Pneumovax 23) 0.5 ml IM .ONCE ONE Stop: 05/02/17 12:01 Vancomycin HCl (Vancomycin Pharmacy To Dose) 1 each IV PKCONSULT MIRTHA PRN Reason: Protocol Review of Systems ROS unobtainable: due to endotracheal tube Physical Examination Vital Signs Pulse Resp BP 71 26 H 105/39 05/01/17 19:02 05/01/17 19:02 05/01/17 19:02 General appearance: no acute distress Neck: Positive: neck supple. Negative: JVD/HJR Cardiac: Positive: Reg Rate and Rhythm Lungs: Positive: Ventilated Respirations Abdomen: Positive: Soft Extremities: Present: normal Results 05/02/17 05:15 05/02/17 05:15 CBC 05/02/17 Range/Units 05:15 WBC 22.7 H (4.5-11.0) K/mm3 RBC 3.22 L (3.65-5.03) M/mm3 Hgb 11.2 (10.1-14.3) gm/dl Hct 34.7 (30.3-42.9) % Plt Count 177 (140-440) K/mm3 Comprehensive Metabolic Panel 05/02/17 Range/Units 05:15 Sodium 151 H (137-145) mmol/L Potassium 4.6 (3.6-5.0) mmol/L Chloride 111.3 H (98-107) mmol/L Carbon Dioxide 26 (22-30) mmol/L BUN 59 H (7-17) mg/dL Creatinine 1.4 H (0.7-1.2) mg/dL Glucose 212 H (65-100) mg/dL Calcium 6.8 L (8.4-10.2) mg/dL Assessment and Plan Acute respiratory failure Advanced emphysema Hypotension Abnormal electrocardiogram Unchanged from previous one at [facility] Normal LVEF 04/2017 Normal MPI 04/2017 History of colon cancer s/p resection Recent EGD at [place] showing evidence of duodenal ulcer Paroxysmal episode of junctional rhythm that resolves on IV levophed Chronically elevated non-specific troponin Recommendations: Hypotension due to SIRS and intravascular volume depletion Supportive management per ICU team with Abx, IV hydration, pressors and systemic steroids No need for further cardiac intervention
[2017-05-02] MEDS ORDERED: PNEUMOVAX 23 IM ONE (12:00)
[2017-05-02 12:02] LABS: Albumin 2.4 g/dL (3.9-5); Albumin/Globulin Ratio 1.8 %; Bilirubin,Direct 0.3 mg/dL (0-0.2); Bilirubin,Indirect 0.2 mg/dL; Bilirubin,Total 0.5 mg/dL (0.1-1.2); C-Reactive Protein 0.8 mg/dL (0.00-1.30); Total Protein 3.7 g/dL (6.3-8.2)
[2017-05-02] MEDS ORDERED: KETALAR ONE (12:05)
[2017-05-02] MEDS ORDERED: ZEMURON IV ONE (12:05)
[2017-05-02 13:18] LABS: Creatine Kinase MB 17.2 ng/mL (0.0-4.0)
[2017-05-02] MEDS: LOVENOX SUB-Q SCH (14:00)
[2017-05-02] MEDS: LACTATED RINGERS 1,000 ML IV SCH (16:02)
--- NOTE | 2017-05-02 16:49 | Progress Note ---
Assessment and Plan Assessment and plan: Patient is 61-year-old woman with a hypertension and colon cancer who presented with sob, AMS requiring intubation -Acute respiratory failure: Continue mechanical ventilator, CCM following -Acute exacerbation of COPD: iv steriods, neb -Shock, multifactorial: on Levophed, increased ivf and change ivf to nss. -Suspected sepsis bronchitis/aspiration pneumonitis, poa, cxr lagging behind: continue iv abx -Severe Malnutrition: TF, Mid Level Game Designer consult -Acute encephalopahty, poa: due to above History Interval history: Patient was seen and examined. Follow-up on current diagnosis/respiratory failure. Patient is intubated and sedated Hospitalist Physical - Physical exam Narrative exam: GEN: Cachectic BMI 18, intubated sedated HEENT: NCAT, EOMI, PERRL, OP Clear, ET tube in place NECK: supple, no adenopathy, no thyromegaly, no JVD CVS/HEART: rrr, NORMAL S1S2, NO JVD, pulses present bilaterally CHEST/LUNGS: bilateral rhonchi, Symmetrical chest expansion, good air entry bilaterally GI/Abdomen: soft, NTND, good bowel sounds, no guarding or rebound /Bladder: no suprapubic tenderness, no CVA or paraspinal tenderness EXT/Skin: no c/c/e, no obvious rash MSK: FROM x 4 Neuro: Sedated Psych: calm, well open her eyes on sedation, she will respond a - Constitutional Vitals: Temp Pulse Resp BP Pulse Ox 98.5 F 63 24 90/50 95 05/02/17 12:00 05/02/17 15:59 05/02/17 15:59 05/02/17 15:59 05/02/17 15:59 General appearance: Present: no acute distress Results - Labs CBC & Chem 7: 05/02/17 05:15 05/02/17 05:15 Labs: Laboratory Last Values WBC 22.7 K/mm3 (4.5-11.0) H 05/02/17 05:15 RBC 3.22 M/mm3 (3.65-5.03) L 05/02/17 05:15 Hgb 11.2 gm/dl (10.1-14.3) 05/02/17 05:15 Hct 34.7 % (30.3-42.9) 05/02/17 05:15 MCV 108 fl (79-97) H 05/02/17 05:15 MCH 35 pg (28-32) H 05/02/17 05:15 MCHC 32 % (30-34) 05/02/17 05:15 RDW 14.4 % (13.2-15.2) 05/02/17 05:15 Plt Count 177 K/mm3 (140-440) 05/02/17 05:15 Lymph % (Auto) 2.5 % (13.4-35.0) L 05/01/17 20:10 [place] % (Auto) 9.1 % (0.0-7.3) H 05/01/17 20:10 Eos % (Auto) 0.0 % (0.0-4.3) 05/01/17 20:10 Baso % (Auto) 0.2 % (0.0-1.8) 05/01/17 20:10 Lymph # 0.3 K/mm3 (1.2-5.4) L 05/01/17 20:10 [place] # 1.2 K/mm3 (0.0-0.8) H 05/01/17 20:10 Eos # 0.0 K/mm3 (0.0-0.4) 05/01/17 20:10 Baso # 0.0 K/mm3 (0.0-0.1) 05/01/17 20:10 Add Manual Diff Complete 05/02/17 05:15 Total Counted 100 05/02/17 05:15 Seg Neutrophils % Residential Treatment Counselor 05/02/17 05:15 Seg Neuts % (Manual) 76.0 % (40.0-70.0) H 05/02/17 05:15 Band Neutrophils % 21.0 % 05/02/17 05:15 Lymphocytes % (Manual) 1.0 % (13.4-35.0) L 05/02/17 05:15 Reactive Lymphs % (Man) 0 % 05/02/17 05:15 Monocytes % (Manual) 0 % (0.0-7.3) 05/02/17 05:15 Eosinophils % (Manual) 0 % (0.0-4.3) 05/02/17 05:15 Basophils % (Manual) 0 % (0.0-1.8) 05/02/17 05:15 Metamyelocytes % 2.0 % 05/02/17 05:15 Myelocytes % 0 % 05/02/17 05:15 Promyelocytes % 0 % 05/02/17 05:15 Blast Cells % 0 % 05/02/17 05:15 Nucleated RBC % 1.0 % (0.0-0.9) H 05/02/17 05:15 Seg Neutrophils # 11.2 K/mm3 (1.8-7.7) H 05/01/17 20:10 Seg Neutrophils # Man 17.3 K/mm3 (1.8-7.7) H 05/02/17 05:15 Band Neutrophils # 4.8 K/mm3 05/02/17 05:15 Lymphocytes # (Manual) 0.2 K/mm3 (1.2-5.4) L 05/02/17 05:15 Abs React Lymphs (Man) 0.0 K/mm3 05/02/17 05:15 Monocytes # (Manual) 0.0 K/mm3 (0.0-0.8) 05/02/17 05:15 Eosinophils # (Manual) 0.0 K/mm3 (0.0-0.4) 05/02/17 05:15 Basophils # (Manual) 0.0 K/mm3 (0.0-0.1) 05/02/17 05:15 Metamyelocytes # 0.5 K/mm3 05/02/17 05:15 Myelocytes # 0.0 K/mm3 05/02/17 05:15 Promyelocytes # 0.0 K/mm3 05/02/17 05:15 Blast Cells # 0.0 K/mm3 05/02/17 05:15 WBC Morphology Not Reportable 05/02/17 05:15 Hypersegmented Neuts Not Reportable 05/02/17 05:15 Hyposegmented Neuts Not Reportable 05/02/17 05:15 Hypogranular Neuts Not Reportable 05/02/17 05:15 Smudge Cells Not Reportable 05/02/17 05:15 Toxic Granulation Not Reportable 05/02/17 05:15 Toxic Vacuolation Not Reportable 05/02/17 05:15 Dohle Bodies Not Reportable 05/02/17 05:15 Pelger-Huet Anomaly Not Reportable 05/02/17 05:15 Hank Rods Not Reportable 05/02/17 05:15 Platelet Estimate Consistent w auto 05/02/17 05:15 Clumped Platelets Not Reportable 05/02/17 05:15 Plt Clumps, EDTA Not Reportable 05/02/17 05:15 Large Platelets Not Reportable 05/02/17 05:15 Giant Platelets Not Reportable 05/02/17 05:15 Platelet Satelliting Not Reportable 05/02/17 05:15 Plt Morphology Comment Not Reportable 05/02/17 05:15 RBC Morphology Not Reportable 05/02/17 05:15 Dimorphic RBCs Not Reportable 05/02/17 05:15 Polychromasia Not Reportable 05/02/17 05:15 Hypochromasia Not Reportable 05/02/17 05:15 Poikilocytosis Not Reportable 05/02/17 05:15 Anisocytosis Not Reportable 05/02/17 05:15 Microcytosis Not Reportable 05/02/17 05:15 Macrocytosis Few 05/02/17 05:15 Spherocytes Not Reportable 05/02/17 05:15 Pappenheimer Bodies Not Reportable 05/02/17 05:15 Sickle Cells Not Reportable 05/02/17 05:15 Target Cells Not Reportable 05/02/17 05:15 Tear Drop Cells Not Reportable 05/02/17 05:15 Ovalocytes Not Reportable 05/02/17 05:15 Helmet Cells Not Reportable 05/02/17 05:15 [place] Bodies Not Reportable 05/02/17 05:15 [place] Rings Not Reportable 05/02/17 05:15 Sara Cells Not Reportable 05/02/17 05:15 Bite Cells Not Reportable 05/02/17 05:15 Crenated Cell Not Reportable 05/02/17 05:15 Elliptocytes Not Reportable 05/02/17 05:15 Acanthocytes (Spur) Not Reportable 05/02/17 05:15 Rouleaux Not Reportable 05/02/17 05:15 Hemoglobin C Crystals Not Reportable 05/02/17 05:15 Schistocytes Not Reportable 05/02/17 05:15 Malaria parasites Not Reportable 05/02/17 05:15 John Bodies Not Reportable 05/02/17 05:15 Hem Pathologist Commnt No 05/02/17 05:15 PT 21.4 Sec. (12.2-14.9) H 05/01/17 20:10 INR 1.76 (0.87-1.13) H 05/01/17 20:10 APTT 28.7 Sec. (24.2-36.6) 05/01/17 20:10 D-Dimer 577.80 ng/mlDDU (0-234) H 05/01/17 23:53 POC ABG pH 7.373 (7.35-7.45) 05/02/17 08:59 POC ABG pCO2 40.3 (35-45) 05/02/17 08:59 POC ABG pO2 90 (80-105) 05/02/17 08:59 POC ABG HCO3 23.5 05/02/17 08:59 POC ABG Total CO2 25 05/02/17 08:59 POC ABG O2 Sat 97 05/02/17 08:59 POC ABG Base Excess -2 05/02/17 08:59 FiO2 30 % 05/02/17 08:59 Sodium 151 mmol/L (137-145) H 05/02/17 05:15 Potassium 4.6 mmol/L (3.6-5.0) 05/02/17 05:15 Chloride 111.3 mmol/L (98-107) H 05/02/17 05:15 Carbon Dioxide 26 mmol/L (22-30) 05/02/17 05:15 Anion Gap 18 mmol/L 05/02/17 05:15 BUN 59 mg/dL (7-17) H 05/02/17 05:15 Creatinine 1.4 mg/dL (0.7-1.2) H 05/02/17 05:15 Estimated GFR 46 ml/min 05/02/17 05:15 BUN/Creatinine Ratio 42 % 05/02/17 05:15 Glucose 212 mg/dL (65-100) H 05/02/17 05:15 Lactic Acid 3.30 mmol/L (0.7-2.0) H* 05/02/17 11:12 Calcium 6.8 mg/dL (8.4-10.2) L 05/02/17 05:15 Magnesium 1.90 mg/dL (1.7-2.3) 05/01/17 20:10 Total Bilirubin 0.50 mg/dL (0.1-1.2) 05/02/17 05:15 Direct Bilirubin 0.3 mg/dL (0-0.2) H 05/02/17 05:15 Indirect Bilirubin 0.2 mg/dL 05/02/17 05:15 AST 315 units/L (5-40) H 05/02/17 05:15 ALT 418 units/L (7-56) H 05/02/17 05:15 Alkaline Phosphatase 28 units/L (35-129) L 05/02/17 05:15 Total Creatine Kinase 217 units/L (30-135) H 05/01/17 23:53 CK-MB (CK-2) 17.2 ng/mL (0.0-4.0) H 05/01/17 23:53 CK-MB (CK-2) Rel Index 7.9 (0-4) H 05/01/17 23:53 Troponin T 0.079 ng/mL (0.00-0.029) H D 05/02/17 05:15 C-Reactive Protein 0.80 mg/dL (0.00-1.30) 05/02/17 05:15 Total Protein 3.7 g/dL (6.3-8.2) L 05/02/17 05:15 Albumin 2.4 g/dL (3.9-5) L 05/02/17 05:15 Albumin/Globulin Ratio 1.8 % 05/02/17 05:15 Triglycerides 77 mg/dL (2-149) 05/01/17 20:10 Cholesterol 91 mg/dL (50-199) 05/01/17 20:10 LDL Cholesterol Direct 39 mg/dL (50-130) L 05/01/17 20:10 HDL Cholesterol 37 mg/dL (40-59) L 05/01/17 20:10 Cholesterol/HDL Ratio 2.45 % 05/01/17 20:10 Urine Color Yellow (Yellow) 05/02/17 04:00 Urine Turbidity Clear (Clear) 05/02/17 04:00 Urine pH 5.0 (5.0-7.0) 05/02/17 04:00 Ur Specific [place] 1.015 (1.003-1.030) 05/02/17 04:00 Urine Protein 30 mg/dl mg/dL (Negative) 05/02/17 04:00 Urine Glucose (UA) Neg mg/dL (Negative) 05/02/17 04:00 Urine Ketones Neg mg/dL (Negative) 05/02/17 04:00 Urine Blood Mod (Negative) 05/02/17 04:00 Urine Nitrite Neg (Negative) 05/02/17 04:00 Urine Bilirubin Neg (Negative) 05/02/17 04:00 Urine Urobilinogen < 2.0 mg/dL (<2.0) 05/02/17 04:00 Ur Leukocyte Esterase Neg (Negative) 05/02/17 04:00 Urine WBC (Auto) 1.0 /HPF (0.0-6.0) 05/02/17 04:00 Urine RBC (Auto) 1.0 /HPF (0.0-6.0) 05/02/17 04:00 U Epithel Cells (Auto) < 1.0 /HPF (0-13.0) 05/02/17 04:00 Hyaline Casts 4 /LPF 05/02/17 04:00 Urine Mucus Few /HPF 05/02/17 04:00
[2017-05-02 17:07] LABS: ISTAT Base Excess -1; ISTAT HCO3 26.3; ISTAT PCO2 57.4 (35-45); ISTAT PH 7.269 (7.35-7.45); ISTAT PO2 76 (80-105); ISTAT SO2 92; ISTAT TCO2 28
--- NOTE | 2017-05-02 17:38 | Vascular Lab Report ---
LOWER EXTREMITY VENOUS DUPLEX: REASON FOR EXAM: Elevated d-dimer. COMMENTS ON THE RIGHT: All veins visualized are freely compressible without evidence of internal echogenicity. Flow is spontaneous and phasic throughout. COMMENTS ON THE LEFT: All veins visualized are freely compressible without evidence of internal echogenicity. Flow is spontaneous and phasic throughout. IMPRESSION: No evidence of acute or chronic deep venous thrombosis in either lower extremity.
[2017-05-02] MEDS: VANCOMYCIN/NS 1 GM/250 ML 1 GM/250 ML BAG IV SCH (22:16)
--- NOTE | 2017-05-02 22:36 | Consultation ---
PULMONARY CRITICAL CARE CONSULTATION CONSULTING PHYSICIAN: Jose Cruz MD REASON FOR CONSULTATION: Acute likely on chronic hypoxemic respiratory failure with hypercapnia and altered mental status. CHIEF COMPLAINT AND HISTORY OF PRESENT ILLNESS: The patient is a 61-year-old -[place] female with past medical history significant for diagnosis of COPD and treated colon cancer in 2007, brought in by family for altered mental status, shortness of breath. It had been going on for a few days. Appeared to have insidious onset. In the ER, she was hypoxemic. She was not protecting her airways. Family mentioned that she was a full code and wanted all care done. She was intubated in the ER. She required vasopressor to keep her blood pressure up. She was hypothermic, core temperature of about 92.3 degrees Fahrenheit. She was unable to contribute to her history. When I stopped by to see her, she remained on the mechanical ventilator. She remained on a Levophed drip going at about 10 mcg per minute. She was able to nod her head to me when asked if she could hear me. She was on minimal sedation, fentanyl drip at 1 mcg per kg per hour. No history of vomiting or overt aspiration. No recent treatment according to the records or hospital admission. That is as much of the history of presentation as I have. PAST MEDICAL HISTORY: Chronic obstructive lung disease, colon cancer. Unclear if she was home oxygen dependent. PAST SURGICAL HISTORY: She had colon surgery for colon cancer. MEDICATIONS: She was on at the time I stopped by to see her were reviewed. Pertinent medications included the fentanyl drip mentioned above, the Levophed going at 10 mcg per minute, Solu-Medrol 125 mg IV q.6h., Pepcid 20 mg IV daily, Zosyn 3.375 grams IV q.8h., and vancomycin 1 gram IV daily. ALLERGIES: No known drug allergies. DIET: Thin lady bordering on being cachectic, acute weight loss or gain history is unknown. FAMILY AND SOCIAL HISTORY: Lives in the community reported as a 20+ pack year smoker. She continues to smoke. Alcohol or illicit drug use or abuse history were unknown. No family around to give me that history. Family history otherwise unknown. REVIEW OF SYSTEMS: Difficult to obtain secondary to the patient's medical and mental condition; however, since she has been here, no gross hematochezia or melena, no gross hematuria, no hematemesis, no bloody tracheal secretions, no witnessed seizures and she is moving all extremities. She also has seemed to deny chest pain when I asked her. PHYSICAL EXAMINATION: VITAL SIGNS: At presentation in the emergency room, she was hypothermic, temperature was measured at 92.4 degrees Fahrenheit rectally with a pulse of 71, respiratory rate of 26 initially and the blood pressure 105/39, oxygen sats at first record reported as 100%; however, inspired oxygen concentration was unknown. GENERAL: She was normocephalic. She was sedated lightly and appeared cachectic really with nonlabored breathing at the time I saw her. HEAD, EYES, EARS, NOSE, AND THROAT: No scleral icterus. No conjunctival erythema. Oropharynx is moist. Endotracheal tube is in place, taped around 22 cm at the lips. No thyromegaly. No jugular venous distention. HEART: Heart sounds 1 and 2 are heard. They were regular in rate and rhythm at the time of my evaluation. No rubs. No murmurs. LUNGS: Auscultation of both lung camacho significant mostly for diminished bilateral breath sounds. No active wheezing, slightly prolonged expiratory phase. Breathing was nonlabored, but she was sedated. ABDOMEN: Flat, it is soft. Bowel sounds are positive. No palpable hepatosplenomegaly. There is no costovertebral angle tenderness. EXTREMITIES: Without overt digital clubbing, no cyanosis, no pedal edema. Warm to touch bilaterally. Pedal pulses were palpable. NEUROLOGIC: She has spontaneous movement to all extremities. She was sedated. Pupils were equal, round, reactive to light. Extraocular muscle movements appeared intact. SKIN: Normal turgor, no tenting. No cellulitis or rashes. LABORATORY DATA: From my review are as follows: White cell count on admission 12,700, hemoglobin 9.1, hematocrit 28.9, platelet count 149. No band forms are reported on the manual differential. INR was 1.76. D-dimer was elevated at 577. Arterial blood gas at presentation showed a pH of 7.37, pCO2 of 44, pO2 of 223 that was on 50% FiO2. Current ventilator settings at that time were not recorded. Serum sodium was 150 at presentation, potassium 4.5, chloride 107, bicarbonate 23, BUN 49, creatinine 1.4, glucose was 79. Lactic acid level was 5.3. Calcium was 6.9. I do not have an albumin level. Troponin was elevated at 0.046. CPK was slightly elevated at 216. Urinalysis was negative for leukocyte esterase and nitrites, moderate blood. Blood cultures tracheal aspirate no growth to date. I have reviewed the chest x-ray personally. I also reviewed the radiologist's report on the CT of the brain it was reported as a normal brain CT. The chest x-ray shows hyperinflation with flattening of the right, really both hemidiaphragms, increased interstitial markings in a chronic looking pattern. There is a left IJ central line, the tip is in the superior or distal, I should say SVC, in the mid SVC really. Endotracheal tube tip is at the level of the aortic knob. No gross pneumothorax, no gross bony fracture. A couple of opacifications on both hemithoraces probably represent the nipple shadow. Some tenting of the hemidiaphragms bilaterally. ASSESSMENT AND PLAN: We have an elderly lady, likely with chronic COPD, in with sepsis or severe sepsis to be correct and with septic shock, etiology is unclear. 1. Acute on chronic respiratory failure, on mechanical ventilator support with hypoxemia. 2. Acute chronic obstructive pulmonary disease exacerbation. 3. Sepsis with septic shock. 4. Acute encephalopathy. 5. Hypernatremia. 6. Lactic acidemia. 7. Mild coagulopathy. 8. Anemia. PLAN: 1. Continue mechanical ventilatory support, but begin the weaning process. 2. Continue systemic steroids, but reduce the dose and frequency to 60 mg IV q.8h. 3. Add long acting bronchodilators in the form of Brovana and p.r.n. short-acting bronchodilators. 4. Venous thromboembolic disorder workup. Bilateral lower extremity Dopplers will be done. If negative, we will go ahead and get a CT angio of the chest. In the meantime, we will continue volume resuscitation and in light of azotemia. We will continue isotonic fluids in the short time and will change to lactated Ringer's and keep an eye on the serum lactate level in light of the hypernatremia. Urine electrolytes will be ordered, calculated fractional excretion of sodium. CRP level will be ordered. I will continue broad spectrum antibiotic therapy in the short term as ordered. Her x-ray does suggest significant bullous disease. We will continue the antipseudomonal antibiotics in the short term. She is on GI prophylaxis. She will be placed on DVT prophylaxis. We will wean Levophed keeping mean arterial pressures greater than 65 mmHg. Aspiration precautions and ventilator-associated bundle will be addressed daily. Flu and pneumonia vaccination will be per protocol. Thank you very much for the consult. We will follow along and make further recommendations as picture progresses/becomes clearer. At this time, I spent about 40 minutes of critical care time without overlap excluding any procedural time that may be necessary. She is critically ill on life-sustaining interventions including mechanical ventilatory support and vasopressors at higher risk for further deterioration including . JOB# [id number] RD/IAN
[2017-05-03] MEDS: ZOSYN/NS 3.375GM/50ML 3.375 GM/50 ML BAG IV SCH ×4 (01:08→23:00)
[2017-05-03] MEDS: LEVOPHED DRIP 4 MG/NS 250 ML 4 MG/250 ML BAG IV SCH ×3 (02:55→19:15)
[2017-05-03 05:18] LABS: ISTAT Base Excess 1; ISTAT HCO3 24.5; ISTAT PCO2 31.7 (35-45); ISTAT PH 7.497 (7.35-7.45); ISTAT PO2 87 (80-105); ISTAT SO2 98; ISTAT TCO2 25
[2017-05-03] MEDS: LACTATED RINGERS 1,000 ML IV SCH ×3 (05:46→22:58)
--- NOTE | 2017-05-03 07:24 | XRay Report ---
AP CHEST: HISTORY: Followup respiratory failure The endotracheal tube and left venous catheter remain in the same position. The lungs are hyperinflated but clear. Normal heart and mediastinal structures. No acute process is appreciated. IMPRESSION: No change.
--- NOTE | 2017-05-03 09:00 | XRay Report ---
SUPINE KUB: History: Nasogastric tube placement. A Dobbhoff tube has been inserted which terminates in the distal stomach near the pylorus. The bowel gas pattern is normal within the visualized abdomen. The pelvis is not included. The lungs are hyperinflated but clear. IMPRESSION: The Dobbhoff tube terminates in the distal stomach.
[2017-05-03] MEDS: LOVENOX SUB-Q SCH (09:43)
[2017-05-03] MEDS: PEPCID IV SCH ×2 (09:43→20:59)
[2017-05-03 10:30] LABS: Hematocrit 31.7 % (30.3-42.9); Hemoglobin 10.2 gm/dl (10.1-14.3); Mean Corpuscular HGB Conc 32 % (30-34); Mean Corpuscular Hemoglobin 35 pg (28-32); Mean Corpuscular Volume 107 fl (79-97); Platelet Count 127 K/mm3 (140-440); Red Blood Count 2.96 M/mm3 (3.65-5.03); Red Cell Distribution Width 14.1 % (13.2-15.2)
[2017-05-03 10:38] LABS: Anion Gap 13 mmol/L; BUN/Creatinine Ratio 55; Blood Urea Nitrogen 44 mg/dL (7-17); Calcium 6.6 mg/dL (8.4-10.2); Carbon Dioxide 27 mmol/L (22-30); Chloride 110.2 mmol/L (98-107); Glucose 114 mg/dL (65-100); Potassium 3.8 mmol/L (3.6-5.0); Sodium 146 mmol/L (137-145)
[2017-05-03 11:22] LABS: ISTAT Base Excess 1; ISTAT HCO3 26.2; ISTAT PCO2 44.8 (35-45); ISTAT PH 7.374 (7.35-7.45); ISTAT PO2 75 (80-105); ISTAT SO2 94; ISTAT TCO2 28
[2017-05-03] MEDS ORDERED: SIMPLE SYRUP FEEDTUBE PRN ×2 (11:31)
[2017-05-03] MEDS ORDERED: SODIUM BICARBONATE FEEDTUBE PRN (11:31)
[2017-05-03] MEDS ORDERED: PANCREAZE DR 10,500 UNIT FEEDTUBE PRN (11:31)
--- NOTE | 2017-05-03 13:10 | Progress Note ---
Assessment and Plan Acute respiratory failure s/p extubation Advanced emphysema Hypotension -on pressor for support Abnormal electrocardiogram Unchanged from previous one at [facility] Normal LVEF 04/2017 Normal MPI 04/2017 History of colon cancer s/p resection Recent EGD at [facility] showing evidence of duodenal ulcer Paroxysmal episode of junctional rhythm that resolves on IV levophed Chronically elevated non-specific troponin Conservative cardiac management. Subjective Date of service: 05/03/17 Interval history: Patient was extubated this morning. She denies chest pain and shortness of breath. Stable sinus rhythm on telemetry. Objective Vital Signs Temp Pulse Pulse Resp BP Pulse Ox 05/03/17 13:00 70 14 96/43 97 05/03/17 12:47 100 05/03/17 12:04 98 05/03/17 12:00 65 24 115/49 95 05/03/17 11:03 76 26 H 117/83 94 05/03/17 11:00 77 15 120/67 86 05/03/17 10:00 68 24 106/54 94 05/03/17 09:00 59 L 15 128/59 97 05/03/17 08:44 58 L 14 136/67 95 05/03/17 08:15 56 L 05/03/17 08:00 46 L 15 113/60 99 05/03/17 07:00 56 L 15 134/65 99 05/03/17 06:00 58 L 15 131/64 99 05/03/17 05:01 56 L 146/71 100 05/03/17 05:00 57 L 15 146/71 100 05/03/17 04:15 98.6 F 05/03/17 04:00 66 15 152/62 93 05/03/17 03:00 60 15 135/87 100 05/03/17 02:00 59 L 15 141/66 100 05/03/17 01:00 60 15 152/67 98 05/03/17 00:09 60 148/70 99 05/03/17 00:00 98.2 F 60 15 148/70 98 05/02/17 23:00 61 15 147/85 99 05/02/17 22:00 59 L 15 155/72 100 05/02/17 21:52 58 L 05/02/17 21:46 100 05/02/17 21:23 57 L 15 85/48 99 10/18/17 21:00 64 15 137/72 10/18/17 20:00 58 L 57 L 15 123/61 96 05/02/17 19:57 98.1 F 05/02/17 19:53 63 14 108/52 95 17 19:00 62 17 108/53 96 17 18:45 58 L 17 112/46 96 05/02/17 18:30 59 L 15 128/56 97 05/02/17 18:16 62 19 62/23 95 05/02/17 18:00 57 L 17 122/56 96 17 17:45 64 20 119/58 95 17 17:30 60 19 130/57 96 05/02/17 17:15 61 18 120/54 95 05/02/17 17:00 58 L 19 115/55 95 05/02/17 16:45 59 L 16 114/48 95 05/02/17 16:30 57 L 18 112/57 95 05/02/17 16:16 63 24 112/55 93 05/02/17 16:00 98.3 F 78 18 75/45 95 17 15:59 63 24 90/50 95 05/02/17 15:45 64 15 90/44 95 05/02/17 15:30 58 L 14 96/51 95 05/02/17 15:16 61 17 90/50 92 05/02/17 15:00 63 20 107/56 94 05/02/17 14:45 61 19 92/56 92 05/02/17 14:30 64 17 104/50 87 05/02/17 14:15 62 16 82/49 93 05/02/17 14:00 64 15 88/44 93 05/02/17 13:45 70 19 104/52 92 05/02/17 13:30 63 18 103/55 94 05/02/17 13:15 65 16 87/48 95 - Physical Examination General: No Apparent Distress Cardiac: Positive: Reg Rate and Rhythm Neuro: Positive: Grossly Intact - Labs and Meds Cardiac Enzymes 05/01/17 Range/Units 23:53 CK-MB (CK-2) 17.2 H (0.0-4.0) ng/mL CBC 05/03/17 Range/Units 10:00 WBC 25.0 H (4.5-11.0) K/mm3 RBC 2.96 L (3.65-5.03) M/mm3 Hgb 10.2 (10.1-14.3) gm/dl Hct 31.7 (30.3-42.9) % Plt Count 127 L (140-440) K/mm3 Comprehensive Metabolic Panel 05/03/17 Range/Units 10:00 Sodium 146 H (137-145) mmol/L Potassium 3.8 (3.6-5.0) mmol/L Chloride 110.2 H (98-107) mmol/L Carbon Dioxide 27 (22-30) mmol/L BUN 44 H (7-17) mg/dL Creatinine 0.8 (0.7-1.2) mg/dL Glucose 114 H (65-100) mg/dL Calcium 6.6 L (8.4-10.2) mg/dL - Imaging and Cardiology EKG: image reviewed
--- NOTE | 2017-05-03 15:52 | Progress Note ---
Assessment and Plan Patient is 61-year-old woman presented with shortness of breath and respiratory distress. Intubated with a hypertension and colon cancer who presented with sob , AMS requiring intubation -Acute respiratory failure: Extubated. Continue bronchodilators. IV Solu- Medrol and antibiotics. Pulmonology following -Acute exacerbation of COPD: iv steriods, neb -Shock, multifactorial: Resolved. Off pressors. -Suspected sepsis bronchitis/aspiration pneumonitis, poa, cxr lagging behind: continue iv abx -Severe Malnutrition: TF, Visual Coordinator consult -Acute encephalopahty, poa: due to above - DVT prophylaxis with Lovenox, GI with Pepcid. Spent 30 minutes of critical care time in direct patient care and review of laboratory and radiological data Subjective Date of service: 05/03/17 Principal diagnosis: acute hypoxemic respiratory failure, COPD exacerbation, Interval history: Seen and examined. Extubated. Second Chef with nursing staff. No overnight event reported Objective - Exam Narrative Exam: GEN: Well-developed well-nourished. ill-appearing. Just extubated HEENT: NC/AT, PERRL. No rhionorrhea NECK: Supple, no adenopathy, no thyromegaly, no JVD CVS/HEART: RRR, S1S2 normal. No R/M/G. Pulses present bilaterally CHEST/LUNGS: Symmetrical chest expansion, decreased air movt bilaterally, GI/Abdomen: Soft, NTND, good bowel sounds, no guarding or rebound /Bladder: No suprapubic tenderness, no CVA EXT: No c/c/e Skin: No obvious rash MSK: Spontaneous movement x 4 Neuro: A & O x 3. None focal seen moving all limbs Psych: Calm. No SI or HI - Constitutional Vitals: Vital Signs - 12hr 05/03/17 05/03/17 05/03/17 04:00 04:15 05:00 Temperature 98.6 F Pulse Rate 66 57 L Pulse Rate [ Right Radial] Respiratory 15 15 Rate Blood Pressure 152/62 146/71 O2 Sat by Pulse 93 100 Oximetry 05/03/17 05/03/17 05/03/17 05:01 06:00 07:00 Temperature Pulse Rate 56 L 58 L 56 L Pulse Rate [ Right Radial] Respiratory 15 15 Rate Blood Pressure 146/71 131/64 134/65 O2 Sat by Pulse 100 99 99 Oximetry 05/03/17 05/03/17 05/03/17 08:00 08:15 08:44 Temperature Pulse Rate 46 L 58 L Pulse Rate [ 56 L Right Radial] Respiratory 15 14 Rate Blood Pressure 113/60 136/67 O2 Sat by Pulse 99 95 Oximetry 05/03/17 05/03/17 05/03/17 09:00 10:00 11:00 Temperature Pulse Rate 59 L 68 77 Pulse Rate [ Right Radial] Respiratory 15 24 15 Rate Blood Pressure 128/59 106/54 120/67 O2 Sat by Pulse 97 94 86 Oximetry 05/03/17 05/03/17 05/03/17 11:03 12:00 12:04 Temperature Pulse Rate 76 65 Pulse Rate [ Right Radial] Respiratory 26 H 24 Rate Blood Pressure 117/83 115/49 O2 Sat by Pulse 94 95 98 Oximetry 05/03/17 05/03/17 12:47 13:00 Temperature Pulse Rate 70 Pulse Rate [ Right Radial] Respiratory 14 Rate Blood Pressure 96/43 O2 Sat by Pulse 100 97 Oximetry - Labs CBC & Chem 7: 05/03/17 10:00 05/03/17 10:00 Labs: Abnormal lab results 05/02/17 05/03/17 05/03/17 Range/Units 17:05 05:15 10:00 WBC 25.0 H (4.5-11.0) K/mm3 RBC 2.96 L (3.65-5.03) M/mm3 MCV 107 H (79-97) fl MCH 35 H (28-32) pg Plt Count 127 L (140-440) K/mm3 POC ABG pH 7.269 L 7.497 H (7.35-7.45) POC ABG pCO2 57.4 H 31.7 L (35-45) POC ABG pO2 76 L (80-105) Sodium (137-145) mmol/L Chloride (98-107) mmol/L BUN (7-17) mg/dL Glucose (65-100) mg/dL Calcium (8.4-10.2) mg/dL 05/03/17 05/03/17 Range/Units 10:00 11:20 WBC (4.5-11.0) K/mm3 RBC (3.65-5.03) M/mm3 MCV (79-97) fl MCH (28-32) pg Plt Count (140-440) K/mm3 POC ABG pH (7.35-7.45) POC ABG pCO2 (35-45) POC ABG pO2 75 L (80-105) Sodium 146 H (137-145) mmol/L Chloride 110.2 H (98-107) mmol/L BUN 44 H (7-17) mg/dL Glucose 114 H (65-100) mg/dL Calcium 6.6 L (8.4-10.2) mg/dL
--- NOTE | 2017-05-03 18:38 | Progress Note ---
Assessment and Plan Acute Hypoxemic Resp Failure s/p MVS Acute COPD exacerbation Severe Sepsis with Shock Acute Encephalopathy H/O Colon CA IVVD JAKY (After explaining her medical status and addressing her concerns she agrees to continue levophed and other treatments) - Increase IV resuscitation (LR at 250mls/hr X 1 liter then back to 100mls/hr) - added midodrine - continue systemic steroids - continue levophed and wean for MAP > 65mmHg - continue empiric AB's and folow cultures - CRP unremarkable though and lactate WNL now Subjective Date of service: 05/03/17 Principal diagnosis: Severe Sepsis with Shock; Acute hypoxemic respiratory failure, AECOPD Interval history: Patient is seen today for: Acute Respiratory Failure s/p MVS; Severe Sepsis With Shock; Acute COPD exacerbation Seen and examined at bedside; 24hour events reviewed; nursing and respiratory care staff consulted; no adverse overnight events reported to me; refusing medicines and treatments earlier; No chest pain; remains on levophed at 8 mics/ hr; no N/V/F/C; states that she has recent colonoscopy and drank laxatives with significant diarrhea to clean her bowel Objective Vital Signs - 12hr 05/03/17 05/03/17 05/03/17 07:00 08:00 08:15 Pulse Rate 56 L 46 L Pulse Rate [ 56 L Right Radial] Respiratory 15 15 Rate Blood Pressure 134/65 113/60 O2 Sat by Pulse 99 99 Oximetry 05/03/17 05/03/17 05/03/17 08:44 09:00 10:00 Pulse Rate 58 L 59 L 68 Pulse Rate [ Right Radial] Respiratory 14 15 24 Rate Blood Pressure 136/67 128/59 106/54 O2 Sat by Pulse 95 97 94 Oximetry 05/03/17 05/03/17 05/03/17 11:00 11:03 12:00 Pulse Rate 77 76 65 Pulse Rate [ Right Radial] Respiratory 15 26 H 24 Rate Blood Pressure 120/67 117/83 115/49 O2 Sat by Pulse 86 94 95 Oximetry 05/03/17 05/03/17 05/03/17 12:04 12:47 13:00 Pulse Rate 70 Pulse Rate [ Right Radial] Respiratory 20 14 Rate Blood Pressure 96/43 O2 Sat by Pulse 98 100 97 Oximetry 05/03/17 05/03/17 05/03/17 14:00 15:00 16:00 Pulse Rate 60 79 69 Pulse Rate [ Right Radial] Respiratory 22 21 22 Rate Blood Pressure 108/57 104/57 92/52 O2 Sat by Pulse 99 95 95 Oximetry 05/03/17 05/03/17 16:47 17:00 Pulse Rate 74 Pulse Rate [ 62 Right Radial] Respiratory 18 23 Rate Blood Pressure 82/41 O2 Sat by Pulse 95 97 Oximetry Constitutional: no acute distress, alert Eyes: non-icteric ENT: oropharynx dry, other (normocephalic; no bruit) Neck: supple, no lymphadenopathy, no JVD, other (right IJ CVL in place) Effort: mildly labored Ascultation: Bilateral: clear, diminished breath sounds, other (prolonged exp phase) Cardiovascular: regular rate and rhythm, other Gastrointestinal: normoactive bowel sounds, soft, non-tender, non-distended, other (no HSM) Integumentary: other (poor skin turgor; mild tenting) Extremities: no cyanosis, no edema, pink and warm, pulses normal, no ischemia or petechiae Neurologic: normal mental status, non-focal exam, pupils equal and round, motor strength normal and Psychiatric: mood appropriate, affect normal, other (good insight) CBC and BMP: 05/04/17 04:29 05/04/17 04:29 ABG, PT/INR, D-dimer: ABG POC ABG pH 7.374 (7.35-7.45) 05/03/17 11:20 POC ABG pCO2 44.8 (35-45) 05/03/17 11:20 POC ABG pO2 75 (80-105) L 05/03/17 11:20 POC ABG HCO3 26.2 05/03/17 11:20 POC ABG Total CO2 28 05/03/17 11:20 POC ABG O2 Sat 94 05/03/17 11:20 PT/INR, D-dimer PT 21.4 Sec. (12.2-14.9) H 05/01/17 20:10 INR 1.76 (0.87-1.13) H 05/01/17 20:10 D-Dimer 577.80 ng/mlDDU (0-234) H 05/01/17 23:53 Abnormal lab findings: Abnormal Labs 05/01/17 05/01/17 05/02/17 23:53 23:53 04:51 WBC RBC MCV MCH Plt Count Seg Neuts % (Manual) Lymphocytes % (Manual) Nucleated RBC % Seg Neutrophils # Man Lymphocytes # (Manual) D-Dimer 577.80 H POC ABG pH 7.269 L POC ABG pCO2 57.3 H POC ABG pO2 69 L Sodium Chloride BUN Creatinine Glucose Lactic Acid Calcium Direct Bilirubin AST ALT Alkaline Phosphatase Total Creatine Kinase 217 H CK-MB (CK-2) 17.2 H CK-MB (CK-2) Rel Index 7.9 H Troponin T Total Protein Albumin 05/02/17 05/02/17 05/02/17 05:15 05:15 05:15 WBC 22.7 H RBC 3.22 L MCV 108 H MCH 35 H Plt Count Seg Neuts % (Manual) 76.0 H Lymphocytes % (Manual) 1.0 L Nucleated RBC % 1.0 H Seg Neutrophils # Man 17.3 H Lymphocytes # (Manual) 0.2 L D-Dimer POC ABG pH POC ABG pCO2 POC ABG pO2 Sodium 151 H Chloride 111.3 H BUN 59 H Creatinine 1.4 H Glucose 212 H Lactic Acid Calcium 6.8 L Direct Bilirubin AST ALT Alkaline Phosphatase Total Creatine Kinase CK-MB (CK-2) CK-MB (CK-2) Rel Index Troponin T 0.079 H D Total Protein Albumin 05/02/17 05/02/17 05/02/17 05:15 11:12 17:05 WBC RBC MCV MCH Plt Count Seg Neuts % (Manual) Lymphocytes % (Manual) Nucleated RBC % Seg Neutrophils # Man Lymphocytes # (Manual) D-Dimer POC ABG pH 7.269 L POC ABG pCO2 57.4 H POC ABG pO2 76 L Sodium Chloride BUN Creatinine Glucose Lactic Acid 3.30 H* Calcium Direct Bilirubin 0.3 H AST 315 H ALT 418 H Alkaline Phosphatase 28 L Total Creatine Kinase CK-MB (CK-2) CK-MB (CK-2) Rel Index Troponin T Total Protein 3.7 L Albumin 2.4 L 05/03/17 05/03/17 05/03/17 05:15 10:00 10:00 WBC 25.0 H RBC 2.96 L MCV 107 H MCH 35 H Plt Count 127 L Seg Neuts % (Manual) Lymphocytes % (Manual) Nucleated RBC % Seg Neutrophils # Man Lymphocytes # (Manual) D-Dimer POC ABG pH 7.497 H POC ABG pCO2 31.7 L POC ABG pO2 Sodium 146 H Chloride 110.2 H BUN 44 H Creatinine Glucose 114 H Lactic Acid Calcium 6.6 L Direct Bilirubin AST ALT Alkaline Phosphatase Total Creatine Kinase CK-MB (CK-2) CK-MB (CK-2) Rel Index Troponin T Total Protein Albumin 05/03/17 11:20 WBC RBC MCV MCH Plt Count Seg Neuts % (Manual) Lymphocytes % (Manual) Nucleated RBC % Seg Neutrophils # Man Lymphocytes # (Manual) D-Dimer POC ABG pH POC ABG pCO2 POC ABG pO2 75 L Sodium Chloride BUN Creatinine Glucose Lactic Acid Calcium Direct Bilirubin AST ALT Alkaline Phosphatase Total Creatine Kinase CK-MB (CK-2) CK-MB (CK-2) Rel Index Troponin T Total Protein Albumin Chest x-ray: image reviewed (severe hyp[erinflation; no pulmonary edema; no PTX)
[2017-05-03] MEDS ORDERED: PROAMATINE PO ONE (18:40)
[2017-05-03] MEDS: VANCOMYCIN/NS 1 GM/250 ML 1 GM/250 ML BAG IV SCH (20:58)
[2017-05-03] MEDS: DUONEB *Not for PRN Use IH SCH (22:16)
[2017-05-04] MEDS: DUONEB *Not for PRN Use IH SCH ×4 (01:45→20:46)
[2017-05-04] MEDS: LEVOPHED DRIP 4 MG/NS 250 ML 4 MG/250 ML BAG IV SCH ×4 (02:02→23:00)
[2017-05-04 05:26] LABS: Hematocrit 34.2 % (30.3-42.9); Hemoglobin 10.8 gm/dl (10.1-14.3); Mean Corpuscular HGB Conc 32 % (30-34); Mean Corpuscular Hemoglobin 35 pg (28-32); Red Blood Count 3.07 M/mm3 (3.65-5.03); Red Cell Distribution Width 15.2 % (13.2-15.2)
[2017-05-04 05:28] LABS: Mean Corpuscular Volume 111 fl (79-97); Platelet Count 70 K/mm3 (140-440); White Blood Count 29.2 K/mm3 (4.5-11.0)
[2017-05-04 06:01] LABS: Alkaline Phosphatase 54 units/L (35-129); BUN/Creatinine Ratio 45; Blood Urea Nitrogen 36 mg/dL (7-17); Calcium 6.8 mg/dL (8.4-10.2); Carbon Dioxide 19 mmol/L (22-30); Chloride 108.6 mmol/L (98-107); Glucose 144 mg/dL (65-100); Potassium 4.8 mmol/L (3.6-5.0); Sodium 142 mmol/L (137-145); Total Protein 4.5 g/dL (6.3-8.2)
[2017-05-04 06:09] LABS: Anion Gap 19 mmol/L
[2017-05-04 06:10] LABS: Alanine Aminotransferase 672 units/L (7-56)
[2017-05-04 06:25] LABS: Basophils % (Manual) 0 % (0.0-1.8); Blastocytes % (Manual) 0 %; Eosinophils % (Manual) 0 % (0.0-4.3); Macrocytosis 1+; Total Cells Counted Percent 2.5
[2017-05-04 06:26] LABS: Diff Status Complete; Platelet Estimate Appears Decreased
--- NOTE | 2017-05-04 07:16 | XRay Report ---
Single view chest: Compared to 05/03/17. History: Followup of respiratory failure. Findings: Normal cardiomediastinal silhouette. Trachea is midline. Evidence of COPD. No acute consolidation. Impression: COPD. No acute lung changes.
[2017-05-04] MEDS: ZOSYN/NS 3.375GM/50ML 3.375 GM/50 ML BAG IV SCH ×2 (08:31→17:55)
[2017-05-04] MEDS: LACTATED RINGERS 1,000 ML IV SCH (08:31)
[2017-05-04] MEDS: LOVENOX SUB-Q SCH (09:27)
[2017-05-04] MEDS: PEPCID IV SCH ×2 (09:27→23:00)
--- NOTE | 2017-05-04 09:52 | Progress Note ---
Assessment and Plan Acute Hypoxemic Resp Failure s/p MVS Acute COPD exacerbation Severe Sepsis with Shock Acute Encephalopathy H/O Colon CA IVVD JAKY (After explaining her medical status and addressing her concerns she agrees to continue levophed and other treatments) - continue IVF but watch closely as she may be developing pulmonary edema - Left IJ line not well positioned for CVP monitoring - ordered PICC line and will use to trend CVP's - added midodrine - continue systemic steroids - continue levophed and wean for MAP > 65mmHg - continue empiric AB's and folow cultures - with increasing leucocytosis will reorder CRP and lactate but also consult ID - continue aspiration precautions - continue GI & VTE prophylaxis - continue current empiric AB's - follow cardiology evaluation ...case discussed at length during multidisciplinary team rounds and care plan formulated ......she remains critically ill on life sustaining interventions inccluding vasopressors and at risk for further deterioration including ....34' CCT Subjective Date of service: 05/04/17 Principal diagnosis: Severe Sepsis with Shock; Acute hypoxemic respiratory failure, AECOPD Interval history: Patient is seen today for: Acute Respiratory Failure s/p MVS; Severe Sepsis With Shock; Acute COPD exacerbation Seen and examined at bedside; 24hour events reviewed; nursing and respiratory care staff consulted; no adverse overnight events reported to me; remains on levophed and requiring even higher doses at 10mics/min now; No chest pains or palpitations; afebrile; remains on IVF; attempted to call manager deli today but wrong office; no new issues otherwise Objective Vital Signs - 12hr 05/03/17 05/03/17 05/03/17 22:00 22:10 23:00 Temperature Pulse Rate 84 60 Pulse Rate [ 72 Anterior Bilateral Throughout] Respiratory 19 18 Rate Respiratory 16 Rate [Anterior Bilateral Throughout] Blood Pressure 105/43 117/42 O2 Sat by Pulse 93 99 Oximetry 05/03/17 05/04/17 05/04/17 23:39 00:00 01:00 Temperature 97.7 F Pulse Rate 52 L 53 L Pulse Rate [ Anterior Bilateral Throughout] Respiratory 15 15 Rate Respiratory Rate [Anterior Bilateral Throughout] Blood Pressure 92/41 85/42 O2 Sat by Pulse 98 100 Oximetry 05/04/17 05/04/17 05/04/17 01:45 02:00 03:00 Temperature Pulse Rate 78 69 Pulse Rate [ 54 L Anterior Bilateral Throughout] Respiratory 27 H 15 Rate Respiratory 17 Rate [Anterior Bilateral Throughout] Blood Pressure 103/50 78/38 O2 Sat by Pulse 84 99 Oximetry 05/04/17 05/04/17 05/04/17 03:43 04:00 05:00 Temperature 97.8 F Pulse Rate 64 55 L Pulse Rate [ Anterior Bilateral Throughout] Respiratory 18 17 Rate Respiratory Rate [Anterior Bilateral Throughout] Blood Pressure 104/49 100/46 O2 Sat by Pulse 91 99 Oximetry 05/04/17 05/04/17 05/04/17 06:00 07:00 07:52 Temperature Pulse Rate 59 L 61 Pulse Rate [ Anterior Bilateral Throughout] Respiratory 17 16 Rate Respiratory Rate [Anterior Bilateral Throughout] Blood Pressure 112/51 97/48 O2 Sat by Pulse 98 98 96 Oximetry 05/04/17 05/04/17 08:00 08:03 Temperature 97.8 F Pulse Rate 57 L Pulse Rate [ Anterior Bilateral Throughout] Respiratory 15 Rate Respiratory Rate [Anterior Bilateral Throughout] Blood Pressure 100/52 O2 Sat by Pulse 98 Oximetry Constitutional: no acute distress, alert Eyes: non-icteric ENT: oropharynx moist, other (normocephalic; no bruit) Neck: supple, no lymphadenopathy, no JVD, other (right IJ CVL in place) Effort: mildly labored Ascultation: Bilateral: clear, diminished breath sounds, other (prolonged exp phase) Cardiovascular: regular rate and rhythm, other Gastrointestinal: normoactive bowel sounds, soft, non-tender, non-distended, other (no HSM) Integumentary: other (poor skin turgor; mild tenting) Extremities: no cyanosis, no edema, pink and warm, pulses normal, no ischemia or petechiae Neurologic: normal mental status, non-focal exam, pupils equal and round, motor strength normal and Psychiatric: mood appropriate, affect normal, other (poor insight overall of the severity of her condition) CBC and BMP: 05/04/17 04:29 05/04/17 04:29 ABG, PT/INR, D-dimer: ABG POC ABG pH 7.374 (7.35-7.45) 05/03/17 11:20 POC ABG pCO2 44.8 (35-45) 05/03/17 11:20 POC ABG pO2 75 (80-105) L 05/03/17 11:20 POC ABG HCO3 26.2 05/03/17 11:20 POC ABG Total CO2 28 05/03/17 11:20 POC ABG O2 Sat 94 05/03/17 11:20 PT/INR, D-dimer PT 21.4 Sec. (12.2-14.9) H 05/01/17 20:10 INR 1.76 (0.87-1.13) H 05/01/17 20:10 D-Dimer 577.80 ng/mlDDU (0-234) H 05/01/17 23:53 Abnormal lab findings: Abnormal Labs 05/01/17 05/01/17 05/02/17 23:53 23:53 04:51 WBC RBC MCV MCH Plt Count Seg Neuts % (Manual) Lymphocytes % (Manual) Nucleated RBC % Seg Neutrophils # Man Lymphocytes # (Manual) D-Dimer 577.80 H POC ABG pH 7.269 L POC ABG pCO2 57.3 H POC ABG pO2 69 L Sodium Chloride Carbon Dioxide BUN Creatinine Glucose Lactic Acid Calcium Direct Bilirubin AST ALT Alkaline Phosphatase Total Creatine Kinase 217 H CK-MB (CK-2) 17.2 H CK-MB (CK-2) Rel Index 7.9 H Troponin T Total Protein Albumin 05/02/17 05/02/17 05/02/17 05:15 05:15 05:15 WBC 22.7 H RBC 3.22 L MCV 108 H MCH 35 H Plt Count Seg Neuts % (Manual) 76.0 H Lymphocytes % (Manual) 1.0 L Nucleated RBC % 1.0 H Seg Neutrophils # Man 17.3 H Lymphocytes # (Manual) 0.2 L D-Dimer POC ABG pH POC ABG pCO2 POC ABG pO2 Sodium 151 H Chloride 111.3 H Carbon Dioxide BUN 59 H Creatinine 1.4 H Glucose 212 H Lactic Acid Calcium 6.8 L Direct Bilirubin AST ALT Alkaline Phosphatase Total Creatine Kinase CK-MB (CK-2) CK-MB (CK-2) Rel Index Troponin T 0.079 H D Total Protein Albumin 05/02/17 05/02/17 05/02/17 05:15 11:12 17:05 WBC RBC MCV MCH Plt Count Seg Neuts % (Manual) Lymphocytes % (Manual) Nucleated RBC % Seg Neutrophils # Man Lymphocytes # (Manual) D-Dimer POC ABG pH 7.269 L POC ABG pCO2 57.4 H POC ABG pO2 76 L Sodium Chloride Carbon Dioxide BUN Creatinine Glucose Lactic Acid 3.30 H* Calcium Direct Bilirubin 0.3 H AST 315 H ALT 418 H Alkaline Phosphatase 28 L Total Creatine Kinase CK-MB (CK-2) CK-MB (CK-2) Rel Index Troponin T Total Protein 3.7 L Albumin 2.4 L 05/03/17 05/03/17 05/03/17 05:15 10:00 10:00 WBC 25.0 H RBC 2.96 L MCV 107 H MCH 35 H Plt Count 127 L Seg Neuts % (Manual) Lymphocytes % (Manual) Nucleated RBC % Seg Neutrophils # Man Lymphocytes # (Manual) D-Dimer POC ABG pH 7.497 H POC ABG pCO2 31.7 L POC ABG pO2 Sodium 146 H Chloride 110.2 H Carbon Dioxide BUN 44 H Creatinine Glucose 114 H Lactic Acid Calcium 6.6 L Direct Bilirubin AST ALT Alkaline Phosphatase Total Creatine Kinase CK-MB (CK-2) CK-MB (CK-2) Rel Index Troponin T Total Protein Albumin 05/03/17 05/04/17 05/04/17 11:20 04:29 04:29 WBC 29.2 H RBC 3.07 L MCV 111 H MCH 35 H Plt Count 70 L Seg Neuts % (Manual) 96.0 H Lymphocytes % (Manual) 0 L Nucleated RBC % 1.0 H Seg Neutrophils # Man 28.0 H Lymphocytes # (Manual) 0.0 L D-Dimer POC ABG pH POC ABG pCO2 POC ABG pO2 75 L Sodium Chloride 108.6 H Carbon Dioxide 19 L D BUN 36 H Creatinine Glucose 144 H Lactic Acid Calcium 6.8 L Direct Bilirubin AST 124 H ALT 672 H Alkaline Phosphatase Total Creatine Kinase CK-MB (CK-2) CK-MB (CK-2) Rel Index Troponin T Total Protein 4.5 L D Albumin 3.0 L Chest x-ray: image reviewed (mild interstitial edema pattern)
--- NOTE | 2017-05-04 10:09 | Progress Note ---
Assessment and Plan Acute respiratory failure - resolved Advanced emphysema Hypotension on IV levophed Abnormal electrocardiogram Unchanged from previous one at [facility] Normal LVEF 04/2017 Normal MPI 04/2017 History of colon cancer s/p resection Recent EGD at [place] showing evidence of duodenal ulcer Paroxysmal episode of junctional rhythm that resolves on IV levophed Chronically elevated non-specific troponin Recommendations: Hypotension due to SIRS and intravascular volume depletion Supportive management per ICU team with Abx, IV hydration, pressors and systemic steroids No need for further cardiac intervention Subjective Date of service: 05/04/17 Principal diagnosis: Severe Sepsis with Shock; Acute hypoxemic respiratory failure, AECOPD Interval history: Patient is stable, SR on tele No cardiac events reported overnight Objective Vital Signs Temp Pulse Pulse Pulse Resp Resp BP 05/04/17 08:03 97.8 F 05/04/17 08:00 57 L 15 100/52 05/04/17 07:52 05/04/17 07:00 61 16 97/48 05/04/17 06:00 59 L 17 112/51 05/04/17 05:00 55 L 17 100/46 05/04/17 04:00 64 18 104/49 05/04/17 03:43 97.8 F 05/04/17 03:00 69 15 78/38 05/04/17 02:00 78 27 H 103/50 05/04/17 01:45 54 L 17 05/04/17 01:00 53 L 15 85/42 05/04/17 00:00 52 L 15 92/41 05/03/17 23:39 97.7 F 05/03/17 23:00 60 18 117/42 05/03/17 22:10 72 16 05/03/17 22:00 84 19 105/43 05/03/17 21:20 05/03/17 21:00 71 24 96/50 05/03/17 20:26 82 16 92/43 05/03/17 20:00 79 25 H 96/47 05/03/17 19:52 98.6 F 05/03/17 19:00 85 23 100/45 05/03/17 18:00 74 25 H 94/44 05/03/17 17:00 74 23 82/41 05/03/17 16:47 62 18 05/03/17 16:00 98.1 F 69 22 92/52 05/03/17 15:00 79 21 104/57 05/03/17 14:00 60 22 108/57 05/03/17 13:00 70 14 96/43 05/03/17 12:47 20 05/03/17 12:04 05/03/17 12:00 98.5 F 65 24 115/49 05/03/17 11:03 76 26 H 117/83 05/03/17 11:00 77 15 120/67 Pulse Ox 05/04/17 08:03 05/04/17 08:00 98 05/04/17 07:52 96 05/04/17 07:00 98 05/04/17 06:00 98 05/04/17 05:00 99 05/04/17 04:00 91 05/04/17 03:43 05/04/17 03:00 99 05/04/17 02:00 84 05/04/17 01:45 05/04/17 01:00 100 05/04/17 00:00 98 05/03/17 23:39 05/03/17 23:00 99 05/03/17 22:10 05/03/17 22:00 93 05/03/17 21:20 94 05/03/17 21:00 92 05/03/17 20:26 92 05/03/17 20:00 94 05/03/17 19:52 05/03/17 19:00 93 05/03/17 18:00 93 05/03/17 17:00 97 05/03/17 16:47 95 05/03/17 16:00 95 05/03/17 15:00 95 05/03/17 14:00 99 05/03/17 13:00 97 05/03/17 12:47 100 05/03/17 12:04 98 05/03/17 12:00 95 05/03/17 11:03 94 05/03/17 11:00 86 - Physical Examination General: No Apparent Distress Neck: Positive: neck supple. Negative: JVD/HJR Cardiac: Positive: Reg Rate and Rhythm Lungs: Positive: Normal Exam Neuro: Positive: Grossly Intact Abdomen: Positive: Soft Extremities: Present: normal - Labs and Meds Cardiac Enzymes 05/04/17 Range/Units 04:29 AST 124 H (5-40) units/L CBC 05/03/17 05/04/17 Range/Units 10:00 04:29 WBC 25.0 H 29.2 H (4.5-11.0) K/mm3 RBC 2.96 L 3.07 L (3.65-5.03) M/mm3 Hgb 10.2 10.8 (10.1-14.3) gm/dl Hct 31.7 34.2 (30.3-42.9) % Plt Count 127 L 70 L (140-440) K/mm3 Comprehensive Metabolic Panel 05/03/17 05/04/17 Range/Units 10:00 04:29 Sodium 146 H 142 (137-145) mmol/L Potassium 3.8 4.8 D (3.6-5.0) mmol/L Chloride 110.2 H 108.6 H (98-107) mmol/L Carbon Dioxide 27 19 L D (22-30) mmol/L BUN 44 H 36 H (7-17) mg/dL Creatinine 0.8 0.8 (0.7-1.2) mg/dL Glucose 114 H 144 H (65-100) mg/dL Calcium 6.6 L 6.8 L (8.4-10.2) mg/dL AST 124 H (5-40) units/L ALT 672 H (7-56) units/L Alkaline Phosphatase 54 (35-129) units/L Total Protein 4.5 L D (6.3-8.2) g/dL Albumin 3.0 L (3.9-5) g/dL - Imaging and Cardiology EKG: image reviewed
[2017-05-04] MEDS ORDERED: NACL 0.9% 500 ML 500 ML IV SCH (12:00)
[2017-05-04 13:55] LABS: ABG Base Excess -0.5 mmol/L (-2.0-3.0); ABG HCO3 29.1 mmol/L (20.0-26.0); ABG Oxygen Saturation 75.1 % (95.0-99.0); ABG PCO2 78.4 mm Hg; ABG PO2 50.3 mm Hg (80.0-90.0)
--- NOTE | 2017-05-04 13:58 | XRay Report ---
Single view chest: Compared to 05/04/17. History: Right arm PICC line placement. Findings: Normal cardiomediastinal silhouette the trachea is midline. Bilateral pleural effusion. No pneumothorax. Tip of right PICC line in upper superior vena cava. Impression: Tip of right PICC line in upper superior vena cava.
[2017-05-04 14:02] LABS: ABG PH 7.187 pH Units (7.350-7.450)
--- NOTE | 2017-05-04 14:32 | Progress Note ---
Assessment and Plan Assessment and plan: Patient is 61-year-old woman with a hypertension and colon cancer who presented with sob, AMS requiring intubation -Acute combined respiratory failure s/p extubation: continue O2 support -Acute exacerbation of COPD: iv steriods, neb -Shock, multifactorial: still on Levophed, increased ivf and change ivf to nss. -Suspected sepsis bronchitis/aspiration pneumonitis, poa, cxr lagging behind: continue iv abx -Severe Malnutrition: Embosser Apprentice consult -Acute encephalopahty, poa: due to above Still on 10mcg of Levaphed and Lactate Ringer, trying to wean Levaphed, [place] added. Cultures negative, will descalate abx and stop iv vancomycin, continue the iv zosyn History Interval history: Patient was seen and examined. Follow-up on current diagnosis/respiratory failure. Patient is intubated and sedated Hospitalist Physical - Physical exam Narrative exam: GEN: Cachectic BMI 18, intubated sedated HEENT: NCAT, EOMI, PERRL, OP Clear, ET tube in place NECK: supple, no adenopathy, no thyromegaly, no JVD CVS/HEART: rrr, NORMAL S1S2, NO JVD, pulses present bilaterally CHEST/LUNGS: bilateral rhonchi, Symmetrical chest expansion, good air entry bilaterally GI/Abdomen: soft, NTND, good bowel sounds, no guarding or rebound /Bladder: no suprapubic tenderness, no CVA or paraspinal tenderness EXT/Skin: no c/c/e, no obvious rash MSK: FROM x 4 Neuro: Sedated Psych: calm, well open her eyes on sedation, she will respond a - Constitutional Vitals: Temp Pulse Resp BP Pulse Ox 97.8 F 63 21 97/45 98 05/04/17 08:03 05/04/17 14:00 05/04/17 14:00 05/04/17 14:00 05/04/17 14:00 General appearance: Present: no acute distress Results - Labs CBC & Chem 7: 05/04/17 04:29 05/04/17 04:29 Labs: Laboratory Last Values WBC 29.2 K/mm3 (4.5-11.0) H 05/04/17 04:29 RBC 3.07 M/mm3 (3.65-5.03) L 05/04/17 04:29 Hgb 10.8 gm/dl (10.1-14.3) 05/04/17 04:29 Hct 34.2 % (30.3-42.9) 05/04/17 04:29 MCV 111 fl (79-97) H 05/04/17 04:29 MCH 35 pg (28-32) H 05/04/17 04:29 MCHC 32 % (30-34) 05/04/17 04:29 RDW 15.2 % (13.2-15.2) 05/04/17 04:29 Plt Count 70 K/mm3 (140-440) L 05/04/17 04:29 Lymph % (Auto) 2.5 % (13.4-35.0) L 05/01/17 20:10 [place] % (Auto) 9.1 % (0.0-7.3) H 05/01/17 20:10 Eos % (Auto) 0.0 % (0.0-4.3) 05/01/17 20:10 Baso % (Auto) 0.2 % (0.0-1.8) 05/01/17 20:10 Lymph # 0.3 K/mm3 (1.2-5.4) L 05/01/17 20:10 [place] # 1.2 K/mm3 (0.0-0.8) H 05/01/17 20:10 Eos # 0.0 K/mm3 (0.0-0.4) 05/01/17 20:10 Baso # 0.0 K/mm3 (0.0-0.1) 05/01/17 20:10 Add Manual Diff Complete 05/04/17 04:29 Total Counted 200 05/04/17 04:29 Seg Neutrophils % Core Oven Tender 05/04/17 04:29 Seg Neuts % (Manual) 96.0 % (40.0-70.0) H 05/04/17 04:29 Band Neutrophils % 1.5 % 05/04/17 04:29 Lymphocytes % (Manual) 0 % (13.4-35.0) L 05/04/17 04:29 Reactive Lymphs % (Man) 0 % 05/04/17 04:29 Monocytes % (Manual) 2.5 % (0.0-7.3) 05/04/17 04:29 Eosinophils % (Manual) 0 % (0.0-4.3) 05/04/17 04:29 Basophils % (Manual) 0 % (0.0-1.8) 05/04/17 04:29 Metamyelocytes % 0 % 05/04/17 04:29 Myelocytes % 0 % 05/04/17 04:29 Promyelocytes % 0 % 05/04/17 04:29 Blast Cells % 0 % 05/04/17 04:29 Nucleated RBC % 1.0 % (0.0-0.9) H 05/04/17 04:29 Seg Neutrophils # 11.2 K/mm3 (1.8-7.7) H 05/01/17 20:10 Seg Neutrophils # Man 28.0 K/mm3 (1.8-7.7) H 05/04/17 04:29 Band Neutrophils # 0.4 K/mm3 05/04/17 04:29 Lymphocytes # (Manual) 0.0 K/mm3 (1.2-5.4) L 05/04/17 04:29 Abs React Lymphs (Man) 0.0 K/mm3 05/04/17 04:29 Monocytes # (Manual) 0.7 K/mm3 (0.0-0.8) 05/04/17 04:29 Eosinophils # (Manual) 0.0 K/mm3 (0.0-0.4) 05/04/17 04:29 Basophils # (Manual) 0.0 K/mm3 (0.0-0.1) 05/04/17 04:29 Metamyelocytes # 0.0 K/mm3 05/04/17 04:29 Myelocytes # 0.0 K/mm3 05/04/17 04:29 Promyelocytes # 0.0 K/mm3 05/04/17 04:29 Blast Cells # 0.0 K/mm3 05/04/17 04:29 WBC Morphology Not Reportable 05/04/17 04:29 Hypersegmented Neuts Not Reportable 05/04/17 04:29 Hyposegmented Neuts Not Reportable 05/04/17 04:29 Hypogranular Neuts Not Reportable 05/04/17 04:29 Smudge Cells Not Reportable 05/04/17 04:29 Toxic Granulation Not Reportable 05/04/17 04:29 Toxic Vacuolation Not Reportable 05/04/17 04:29 Dohle Bodies Not Reportable 05/04/17 04:29 Pelger-Huet Anomaly Not Reportable 05/04/17 04:29 Hank Rods Not Reportable 05/04/17 04:29 Platelet Estimate Appears decreased 05/04/17 04:29 Clumped Platelets Not Reportable 05/04/17 04:29 Plt Clumps, EDTA Not Reportable 05/04/17 04:29 Large Platelets Not Reportable 05/04/17 04:29 Giant Platelets Not Reportable 05/04/17 04:29 Platelet Satelliting Not Reportable 05/04/17 04:29 Plt Morphology Comment Not Reportable 05/04/17 04:29 RBC Morphology Not Reportable 05/04/17 04:29 Dimorphic RBCs Not Reportable 05/04/17 04:29 Polychromasia Not Reportable 05/04/17 04:29 Hypochromasia Not Reportable 05/04/17 04:29 Poikilocytosis Not Reportable 05/04/17 04:29 Anisocytosis Not Reportable 05/04/17 04:29 Microcytosis Not Reportable 05/04/17 04:29 Macrocytosis 1+ 05/04/17 04:29 Spherocytes Not Reportable 05/04/17 04:29 Pappenheimer Bodies Not Reportable 05/04/17 04:29 Sickle Cells Not Reportable 05/04/17 04:29 Target Cells Not Reportable 05/04/17 04:29 Tear Drop Cells Not Reportable 05/04/17 04:29 Ovalocytes Not Reportable 05/04/17 04:29 Helmet Cells Not Reportable 05/04/17 04:29 [place] Bodies Not Reportable 05/04/17 04:29 [place] Rings Not Reportable 05/04/17 04:29 Sara Cells Not Reportable 05/04/17 04:29 Bite Cells Not Reportable 05/04/17 04:29 Crenated Cell Not Reportable 05/04/17 04:29 Elliptocytes Not Reportable 05/04/17 04:29 Acanthocytes (Spur) Not Reportable 05/04/17 04:29 Rouleaux Not Reportable 05/04/17 04:29 Hemoglobin C Crystals Not Reportable 05/04/17 04:29 Schistocytes Not Reportable 05/04/17 04:29 Malaria parasites Not Reportable 05/04/17 04:29 John Bodies Not Reportable 05/04/17 04:29 Hem Pathologist Commnt No 05/04/17 04:29 PT 21.4 Sec. (12.2-14.9) H 05/01/17 20:10 INR 1.76 (0.87-1.13) H 05/01/17 20:10 APTT 28.7 Sec. (24.2-36.6) 05/01/17 20:10 D-Dimer 577.80 ng/mlDDU (0-234) H 05/01/17 23:53 POC ABG pH 7.374 (7.35-7.45) 05/03/17 11:20 ABG pH 7.187 pH Units (7.350-7.450) L* 05/04/17 13:30 POC ABG pCO2 44.8 (35-45) 05/03/17 11:20 ABG pCO2 78.4 mm Hg 05/04/17 13:30 POC ABG pO2 75 (80-105) L 05/03/17 11:20 ABG pO2 50.3 mm Hg (80.0-90.0) L 05/04/17 13:30 POC ABG HCO3 26.2 05/03/17 11:20 ABG HCO3 29.1 mmol/L (20.0-26.0) H 05/04/17 13:30 POC ABG Total CO2 28 05/03/17 11:20 POC ABG O2 Sat 94 05/03/17 11:20 ABG O2 Saturation 75.1 % (95.0-99.0) L 05/04/17 13:30 ABG O2 Content 11.2 (0.0-44) 05/04/17 13:30 POC ABG Base Excess 1 05/03/17 11:20 ABG Base Excess -0.5 mmol/L (-2.0-3.0) 05/04/17 13:30 ABG Hemoglobin 10.8 gm/dl (12.0-16.0) L 05/04/17 13:30 ABG Carboxyhemoglobin 1.5 % (0.0-5.0) 05/04/17 13:30 ABG Methemoglobin 0.5 % (0.0-1.5) 05/04/17 13:30 Oxyhemoglobin 73.6 % (95.0-99.0) L 05/04/17 13:30 FiO2 21 % 05/04/17 13:30 Sodium 142 mmol/L (137-145) 05/04/17 04:29 Potassium 4.8 mmol/L (3.6-5.0) D 05/04/17 04:29 Chloride 108.6 mmol/L (98-107) H 05/04/17 04:29 Carbon Dioxide 19 mmol/L (22-30) L D 05/04/17 04:29 Anion Gap 19 mmol/L 05/04/17 04:29 BUN 36 mg/dL (7-17) H 05/04/17 04:29 Creatinine 0.8 mg/dL (0.7-1.2) 05/04/17 04:29 Estimated GFR > 60 ml/min 05/04/17 04:29 BUN/Creatinine Ratio 45 % 05/04/17 04:29 Glucose 144 mg/dL (65-100) H 05/04/17 04:29 Lactic Acid 1.30 mmol/L (0.7-2.0) 05/04/17 10:50 Calcium 6.8 mg/dL (8.4-10.2) L 05/04/17 04:29 Magnesium 1.90 mg/dL (1.7-2.3) 05/01/17 20:10 Total Bilirubin 0.40 mg/dL (0.1-1.2) 05/04/17 04:29 Direct Bilirubin 0.3 mg/dL (0-0.2) H 05/02/17 05:15 Indirect Bilirubin 0.2 mg/dL 05/02/17 05:15 AST 124 units/L (5-40) H 05/04/17 04:29 ALT 672 units/L (7-56) H 05/04/17 04:29 Alkaline Phosphatase 54 units/L (35-129) 05/04/17 04:29 Total Creatine Kinase 217 units/L (30-135) H 05/01/17 23:53 CK-MB (CK-2) 17.2 ng/mL (0.0-4.0) H 05/01/17 23:53 CK-MB (CK-2) Rel Index 7.9 (0-4) H 05/01/17 23:53 Troponin T 0.079 ng/mL (0.00-0.029) H D 05/02/17 05:15 C-Reactive Protein 2.40 mg/dL (0.00-1.30) H 05/04/17 10:45 Total Protein 4.5 g/dL (6.3-8.2) L D 05/04/17 04:29 Albumin 3.0 g/dL (3.9-5) L 05/04/17 04:29 Albumin/Globulin Ratio 2.0 % 05/04/17 04:29 Triglycerides 77 mg/dL (2-149) 05/01/17 20:10 Cholesterol 91 mg/dL (50-199) 05/01/17 20:10 LDL Cholesterol Direct 39 mg/dL (50-130) L 05/01/17 20:10 HDL Cholesterol 37 mg/dL (40-59) L 05/01/17 20:10 Cholesterol/HDL Ratio 2.45 % 05/01/17 20:10 Urine Color Yellow (Yellow) 05/02/17 04:00 Urine Turbidity Clear (Clear) 05/02/17 04:00 Urine pH 5.0 (5.0-7.0) 05/02/17 04:00 Ur Specific [place] 1.015 (1.003-1.030) 05/02/17 04:00 Urine Protein 30 mg/dl mg/dL (Negative) 05/02/17 04:00 Urine Glucose (UA) Neg mg/dL (Negative) 05/02/17 04:00 Urine Ketones Neg mg/dL (Negative) 05/02/17 04:00 Urine Blood Mod (Negative) 05/02/17 04:00 Urine Nitrite Neg (Negative) 05/02/17 04:00 Urine Bilirubin Neg (Negative) 05/02/17 04:00 Urine Urobilinogen < 2.0 mg/dL (<2.0) 05/02/17 04:00 Ur Leukocyte Esterase Neg (Negative) 05/02/17 04:00 Urine WBC (Auto) 1.0 /HPF (0.0-6.0) 05/02/17 04:00 Urine RBC (Auto) 1.0 /HPF (0.0-6.0) 05/02/17 04:00 U Epithel Cells (Auto) < 1.0 /HPF (0-13.0) 05/02/17 04:00 Hyaline Casts 4 /LPF 05/02/17 04:00 Urine Mucus Few /HPF 05/02/17 04:00
--- NOTE | 2017-05-04 14:46 | Consultation ---
History of Present Illness - Reason for Consult Consult date: 05/04/17 Septic shock Requesting physician: ROSE MARIE MCKEON - History of Present Illness 61 years old female with history of colon cancer s/p colectomy, left renal mass and hypertension; admitted on 05/01/2017 due to be SOB. Patient was recently discharged from [facility]. She was supposed to have an EGD and colonoscopy but this was aborted because the patient was found to be hypoxic and short of breath. she also reports weakness and passing out. In the emergency room, initial temperature was 92.4, heart rate 71, blood pressure will 98/53. Initial white count was 12.7 which then went to 22.7. Creatinine 1.4. Lactic acid 5.3. Urinalysis was negative. Patient was found unresponsive and severely hypotensive and was intubated and started on IV pressors and transferred to the ICU. Admission CT of the head was negative, chest x-ray showed no consolidations but shows advanced COPD. Current Antimicrobials: Zosyn 05/02 Vancomycin 05/01 Previous Antimicrobials: Microbiology: Blood cultures: 05/01 ngtd Urine cultures: 05/02 neg Respiratory cultures: Tracheal asp 05/01 neg Past History Past Medical History: COPD, hypertension, other (colon cancer) Past Surgical History: Other (colon resection) Social history: no significant social history Family history: no significant family history Medications and Allergies Allergies Allergy/AdvReac Type Severity Reaction Status Date / Time No Known Allergies Allergy Unverified 09/25/16 07:33 Home Medications Medication Instructions Recorded Confirmed Last Taken Type Aclidinium [place] [Tudorza 400 mcg INHALATION QDAY 05/03/17 05/03/17 Unknown History Pressair] Amlodipine Besylate [Amlodipine 5 mg PO DAILY 05/03/17 05/03/17 Unknown History Besylate] Cyproheptadine 4 mg PO DAILY 05/03/17 05/03/17 Unknown History Fluticasone/Vilanterol [Breo 100 mcg INHALATION QDAC 05/03/17 05/03/17 Unknown History Ellipta 100-25 Mcg INH] Active Meds: Active Medications Acetaminophen (Tylenol) 650 mg PO Q4H PRN PRN Reason: Pain MILD(1-3)/Fever >100.5/BATISTA Albuterol/Ipratropium (Duoneb *Not For Prn Use*) 1 ampul IH Q6HRT [facility] Last Admin: 05/04/17 09:42 Dose: 1 ampul Lipase/Protease/Amylase (Pancreaze Dr 10,500 Unit) 1 each FEEDTUBE PRN PRN PRN Reason: For Clogged Feeding Tube Enoxaparin Sodium (Lovenox) 30 mg SUB-Q QDAY [facility] Last Admin: 05/04/17 09:27 Dose: 30 mg Famotidine (Pepcid) 20 mg IV BID [facility] Last Admin: 05/04/17 09:27 Dose: 20 mg Hydrophilic Ointment (Vaseline Lip Therapy) 1 applic TP Q2HR PRN PRN Reason: Dry Lips Fentanyl Citrate (Fentanyl Drip Premix) 2,000 mcg in 100 mls @ 2.223 mls/hr IV TITR MIRTHA; 1 MCG/KG/HR PRN Reason: Protocol Last Titration: 05/03/17 14:47 Dose: 0 mcg/kg/hr, 0 mls/hr Piperacillin Sod/Tazobactam Sod (Zosyn/Ns 3.375gm/50ml) 3.375 gm in 50 mls @ 100 mls/hr IV Q8H [facility] Last Admin: 05/04/17 08:31 Dose: 100 mls/hr Norepinephrine (Levophed Drip 4 Mg/Ns 250 Ml) 4 mg in 250 mls @ 82.5 mls/hr IV TITR MIRTHA; 22 MCG/MIN PRN Reason: Protocol Last Admin: 05/04/17 09:28 Dose: 10 mcg/min, 37.5 mls/hr Lactated Ringer's (Lactated Ringers) 1,000 mls @ 100 mls/hr IV DIRECT MIRTHA Last Admin: 05/04/17 08:31 Dose: 100 mls/hr Sodium Chloride (Nacl 0.9% 500 Ml) 500 mls @ 15 mls/hr IV DIRECT MIRTHA Methylprednisolone Sodium Succinate (Solu-Medrol) 60 mg IV Q8HR [facility] Last Admin: 05/04/17 13:36 Dose: 60 mg Multi-Ingred Cream/Lotion/Oil/Oint (Artificial Tears Ophth Oint) 1 applic OU Q4HR PRN PRN Reason: Dry Eye(s) Ondansetron HCl (Zofran) 4 mg IV Q8H PRN PRN Reason: N/V unrelieved by Reglan Simple Syrup (Simple Syrup) 15 ml FEEDTUBE PRN PRN PRN Reason: Hypoglycemia Simple Syrup (Simple Syrup) 30 ml FEEDTUBE PRN PRN PRN Reason: Hypoglycemia Sodium Bicarbonate (Sodium Bicarbonate) 325 mg FEEDTUBE PRN PRN PRN Reason: For Clogged Feeding Tube Review of Systems All systems: negative (per HPI rest negative) Physical Examination - Physical Exam Narrative exam: General appearance: Alert in NAD, conversant Eyes: anicteric sclerae, moist conjunctivae; no lid-lag; PERRLA HENT: Atraumatic; oropharynx clear Neck: Trachea midline; supple, no thyromegaly or lymphadenopathy Lungs: distal BS brandy CV: RRR, no murmurs Abdomen: Soft, tense non tender Extremities: No peripheral edema or extremity lymphadenopathy Skin: Normal temperature, turgor and texture; no rash, ulcers or subcutaneous nodules Psych: Appropriate affect, alert and oriented to person, place and time. Neuro: alert and oriented x 3. Moving all extermities Lines: No CVL / PICC - Constitutional Vitals: Vital Signs Temp Pulse Resp BP Pulse Ox 97.8 F 63 21 97/45 98 05/04/17 08:03 05/04/17 14:00 05/04/17 14:00 05/04/17 14:00 05/04/17 14:00 Temperature -Last 24 Hours Temperature 97.8 F Temperature 97.8 F Temperature 97.7 F Temperature 98.6 F Temperature 98.1 F Results - Labs CBC & Chem 7: 05/04/17 04:29 05/04/17 04:29 Labs: Abnormal lab results 05/04/17 05/04/17 05/04/17 Range/Units 04:29 04:29 10:45 WBC 29.2 H (4.5-11.0) K/mm3 RBC 3.07 L (3.65-5.03) M/mm3 MCV 111 H (79-97) fl MCH 35 H (28-32) pg Plt Count 70 L (140-440) K/mm3 Seg Neuts % (Manual) 96.0 H (40.0-70.0) % Lymphocytes % (Manual) 0 L (13.4-35.0) % Nucleated RBC % 1.0 H (0.0-0.9) % Seg Neutrophils # Man 28.0 H (1.8-7.7) K/mm3 Lymphocytes # (Manual) 0.0 L (1.2-5.4) K/mm3 ABG pH (7.350-7.450) pH Units ABG pO2 (80.0-90.0) mm Hg ABG HCO3 (20.0-26.0) mmol/L ABG O2 Saturation (95.0-99.0) % ABG Hemoglobin (12.0-16.0) gm/dl Oxyhemoglobin (95.0-99.0) % Chloride 108.6 H (98-107) mmol/L Carbon Dioxide 19 L D (22-30) mmol/L BUN 36 H (7-17) mg/dL Glucose 144 H (65-100) mg/dL Calcium 6.8 L (8.4-10.2) mg/dL AST 124 H (5-40) units/L ALT 672 H (7-56) units/L C-Reactive Protein 2.40 H (0.00-1.30) mg/dL Total Protein 4.5 L D (6.3-8.2) g/dL Albumin 3.0 L (3.9-5) g/dL 05/04/17 Range/Units 13:30 WBC (4.5-11.0) K/mm3 RBC (3.65-5.03) M/mm3 MCV (79-97) fl MCH (28-32) pg Plt Count (140-440) K/mm3 Seg Neuts % (Manual) (40.0-70.0) % Lymphocytes % (Manual) (13.4-35.0) % Nucleated RBC % (0.0-0.9) % Seg Neutrophils # Man (1.8-7.7) K/mm3 Lymphocytes # (Manual) (1.2-5.4) K/mm3 ABG pH 7.187 L* (7.350-7.450) pH Units ABG pO2 50.3 L (80.0-90.0) mm Hg ABG HCO3 29.1 H (20.0-26.0) mmol/L ABG O2 Saturation 75.1 L (95.0-99.0) % ABG Hemoglobin 10.8 L (12.0-16.0) gm/dl Oxyhemoglobin 73.6 L (95.0-99.0) % Chloride (98-107) mmol/L Carbon Dioxide (22-30) mmol/L BUN (7-17) mg/dL Glucose (65-100) mg/dL Calcium (8.4-10.2) mg/dL AST (5-40) units/L ALT (7-56) units/L C-Reactive Protein (0.00-1.30) mg/dL Total Protein (6.3-8.2) g/dL Albumin (3.9-5) g/dL Assessment and Plan Assessment: 1) Severe sepsis with septic shock: Present on admission, manifested by hypothermia, hypotension, leukocytosis, increased lactate. Etiology unclear. Initial CT head, CXR, UA and blood cx all negative. ? adrenal insufficiency, ? COPD exacerbation, ? occult etiology 2) History of colon cancer 3) Left renal mass seen on CT 4) COPD exacerbation Plan: -follow-up blood cultures, urine culture, respiratory cultures -obtain procalcitonin, C-reactive protein (CRP) -obtain CT chest, abdomen and pelvis to look for sepsis etiology in view of negative initial work-up -continue zosyn and vancomycin for now -taper down solumedrol Thank you Dr Jimenez for your consultation, will follow up with you. [place]ia Manuel MD Infectious Diseases Specialist [facility] ([facility]) M [phone] O [phone]
[2017-05-04] MEDS ORDERED: LACTATED RINGERS 1,000 ML IV SCH (16:00)
--- NOTE | 2017-05-04 18:15 | Event Note ---
Date: 05/04/17 1. Re-examined ; no acute decompensation; will continue current care 2. Thrombocytopenia noted; lovenox held and HIT assay ordered - continue SCD's
[2017-05-04] MEDS: PROAMATINE PO SCH (23:00)
[2017-05-05] MEDS: ZOSYN/NS 3.375GM/50ML 3.375 GM/50 ML BAG IV SCH ×3 (01:54→17:18)
[2017-05-05] MEDS: DUONEB *Not for PRN Use IH SCH ×4 (02:13→20:16)
[2017-05-05] MEDS ORDERED: CARDIZEM IV ONE (02:40)
[2017-05-05] MEDS ORDERED: CARDIZEM/D5W 100MG/100ML 100 MG/100 ML BAG IV SCH (03:00)
[2017-05-05] MEDS: LEVOPHED DRIP 4 MG/NS 250 ML 4 MG/250 ML BAG IV SCH ×4 (05:09→23:54)
[2017-05-05] MEDS ORDERED: CORDARONE 150 MG in D5W 97 ML IV ONE (10:00)
[2017-05-05] MEDS: PEPCID IV SCH ×2 (10:26→23:54)
[2017-05-05] MEDS: PROAMATINE PO SCH (10:26)
[2017-05-05] MEDS ORDERED: CORDARONE 900 MG in D5W 482 ML IV SCH (11:00)
--- NOTE | 2017-05-05 11:23 | Progress Note ---
Assessment and Plan 1. Atrial fibrillation with rapid ventricular response 2. Sepsis with septic shock on IV pressor agents 3. COPD Stress MPI 04/2017 normal Echo LV EF 04/2017 normal Plan. Patient currently on IV pressor agent. We will however discontinue IV Cardizem drip and start on amiodarone and continue antibiotics and wean off IV pressor agents Subjective Date of service: 05/05/17 Principal diagnosis: Severe Sepsis with Shock; Acute hypoxemic respiratory failure, AECOPD Interval history: o specific cardiac complains Objective Vital Signs Temp Pulse Pulse Resp Resp BP Pulse Ox 05/05/17 10:00 109 H 21 106/56 100 05/05/17 09:00 111 H 22 93/58 90 05/05/17 08:08 115 H 26 H 05/05/17 08:01 112 H 26 H 102/52 96 05/05/17 08:00 97.6 F 98 05/05/17 07:57 101 H 25 H 98 05/05/17 07:00 119 H 21 98/46 77 L 05/05/17 06:00 113 H 18 104/54 99 05/05/17 05:00 118 H 24 101/57 96 05/05/17 04:00 123 H 26 H 105/54 96 05/05/17 03:01 134 H 25 H 101/48 93 05/05/17 03:00 136 H 90/50 05/05/17 02:59 198 H 90/50 05/05/17 02:00 61 60 20 18 118/53 98 05/05/17 01:00 57 L 22 113/54 98 05/05/17 00:00 69 23 112/57 98 05/04/17 23:00 79 21 108/48 98 05/04/17 22:01 74 16 108/51 94 05/04/17 22:00 110 H 05/04/17 21:00 76 21 98/55 95 05/04/17 20:49 96 05/04/17 20:00 77 58 L 18 18 104/58 97 05/04/17 19:00 61 18 109/48 95 05/04/17 18:04 80 19 111/52 92 05/04/17 18:00 77 20 111/52 77 L 05/04/17 17:00 67 21 103/47 95 05/04/17 16:24 98.1 F 05/04/17 16:00 70 22 107/56 93 05/04/17 15:10 58 L 20 05/04/17 15:00 60 20 96/49 96 05/04/17 14:50 60 18 05/04/17 14:00 63 21 97/45 98 05/04/17 13:00 59 L 19 104/50 96 05/04/17 12:00 72 17 109/55 93 - Physical Examination General: No Apparent Distress, Cachectic HEENT: Positive: PERRL, Normocephaly, Mucus Membranes Moist Neck: Positive: neck supple. Negative: JVD/HJR Cardiac: Positive: irregularly irregular, S1/S2, PMI, Laterally Displaced Lungs: Positive: Decreased Breath Sounds, Rhonchi Neuro: Positive: Grossly Intact Abdomen: Positive: Soft, Active Bowel Sounds Extremities: Present: normal - Imaging and Cardiology EKG: image reviewed - Telemetry EKG Rhythm: Atrial Fibrillation
--- NOTE | 2017-05-05 12:29 | Progress Note ---
Assessment and Plan Assessment and plan: Patient is 61-year-old woman with a hypertension and colon cancer who presented with sob, AMS requiring intubation. Now extubated but still on Levophed -Acute combined respiratory failure s/p extubation: continue O2 support -Acute exacerbation of COPD: iv steriods, neb -Shock, multifactorial: still on Levophed, trying to wean -Suspected sepsis bronchitis/aspiration pneumonitis, poa, cxr lagging behind: continue iv abx -Severe Malnutrition: Strap Sewer consult -Acute encephalopahty, poa: due to above Still on 10mcg of trying to wean Levaphed, [place] added. Cultures negative, will descalate abx and stop iv vancomycin, continue the iv zosyn New Issues: A. fib/A flutter with RVR: Consulted cardiology, started on Cardizem drip, now on iv Amiodarone per Cardiology Dropping platelet count: HIT assay ordered and Lovenox discontinued Bilateral pleural effusion: pulmonology decreased ivf History Interval history: Patient was seen and examined. Follow-up on current diagnosis/respiratory failure. Patient is extubated. Overnight pt went into afib. Hospitalist Physical - Physical exam Narrative exam: GEN: Cachectic NAD, AWAKE, ALERT, ORIENTATED 3 HEENT: NCAT, EOMI, PERRL, OP Clear NECK: supple, no adenopathy, no thyromegaly, no JVD CVS/HEART: Irregular regular NORMAL S1S2, NO JVD, pulses present bilaterally CHEST/LUNGS: CTA B, Symmetrical chest expansion, good air entry bilaterally GI/Abdomen: soft, NTND, good bowel sounds, no guarding or rebound /Bladder: no suprapubic tenderness, no CVA or paraspinal tenderness EXT/Skin: no c/c/e, no obvious rash MSK: FROM x 4 Neuro: CN 2-12 grossly intact, no new focal deficits Psych: calm - Constitutional Vitals: Temp Pulse Resp BP Pulse Ox 97.6 F 47 L 20 85/49 68 L 05/05/17 08:00 05/05/17 11:00 05/05/17 11:00 05/05/17 11:00 05/05/17 11:00 General appearance: Present: no acute distress Results - Labs CBC & Chem 7: 05/04/17 04:29 05/04/17 04:29 Labs: Laboratory Last Values WBC 29.2 K/mm3 (4.5-11.0) H 05/04/17 04:29 RBC 3.07 M/mm3 (3.65-5.03) L 05/04/17 04:29 Hgb 10.8 gm/dl (10.1-14.3) 05/04/17 04:29 Hct 34.2 % (30.3-42.9) 05/04/17 04:29 MCV 111 fl (79-97) H 05/04/17 04:29 MCH 35 pg (28-32) H 05/04/17 04:29 MCHC 32 % (30-34) 05/04/17 04:29 RDW 15.2 % (13.2-15.2) 05/04/17 04:29 Plt Count 70 K/mm3 (140-440) L 05/04/17 04:29 Lymph % (Auto) 2.5 % (13.4-35.0) L 05/01/17 20:10 [place] % (Auto) 9.1 % (0.0-7.3) H 05/01/17 20:10 Eos % (Auto) 0.0 % (0.0-4.3) 05/01/17 20:10 Baso % (Auto) 0.2 % (0.0-1.8) 05/01/17 20:10 Lymph # 0.3 K/mm3 (1.2-5.4) L 05/01/17 20:10 [place] # 1.2 K/mm3 (0.0-0.8) H 05/01/17 20:10 Eos # 0.0 K/mm3 (0.0-0.4) 05/01/17 20:10 Baso # 0.0 K/mm3 (0.0-0.1) 05/01/17 20:10 Add Manual Diff Complete 05/04/17 04:29 Total Counted 200 05/04/17 04:29 Seg Neutrophils % Enrollment Advisor 05/04/17 04:29 Seg Neuts % (Manual) 96.0 % (40.0-70.0) H 05/04/17 04:29 Band Neutrophils % 1.5 % 05/04/17 04:29 Lymphocytes % (Manual) 0 % (13.4-35.0) L 05/04/17 04:29 Reactive Lymphs % (Man) 0 % 05/04/17 04:29 Monocytes % (Manual) 2.5 % (0.0-7.3) 05/04/17 04:29 Eosinophils % (Manual) 0 % (0.0-4.3) 05/04/17 04:29 Basophils % (Manual) 0 % (0.0-1.8) 05/04/17 04:29 Metamyelocytes % 0 % 05/04/17 04:29 Myelocytes % 0 % 05/04/17 04:29 Promyelocytes % 0 % 05/04/17 04:29 Blast Cells % 0 % 05/04/17 04:29 Nucleated RBC % 1.0 % (0.0-0.9) H 05/04/17 04:29 Seg Neutrophils # 11.2 K/mm3 (1.8-7.7) H 05/01/17 20:10 Seg Neutrophils # Man 28.0 K/mm3 (1.8-7.7) H 05/04/17 04:29 Band Neutrophils # 0.4 K/mm3 05/04/17 04:29 Lymphocytes # (Manual) 0.0 K/mm3 (1.2-5.4) L 05/04/17 04:29 Abs React Lymphs (Man) 0.0 K/mm3 05/04/17 04:29 Monocytes # (Manual) 0.7 K/mm3 (0.0-0.8) 05/04/17 04:29 Eosinophils # (Manual) 0.0 K/mm3 (0.0-0.4) 05/04/17 04:29 Basophils # (Manual) 0.0 K/mm3 (0.0-0.1) 05/04/17 04:29 Metamyelocytes # 0.0 K/mm3 05/04/17 04:29 Myelocytes # 0.0 K/mm3 05/04/17 04:29 Promyelocytes # 0.0 K/mm3 05/04/17 04:29 Blast Cells # 0.0 K/mm3 05/04/17 04:29 WBC Morphology Not Reportable 05/04/17 04:29 Hypersegmented Neuts Not Reportable 05/04/17 04:29 Hyposegmented Neuts Not Reportable 05/04/17 04:29 Hypogranular Neuts Not Reportable 05/04/17 04:29 Smudge Cells Not Reportable 05/04/17 04:29 Toxic Granulation Not Reportable 05/04/17 04:29 Toxic Vacuolation Not Reportable 05/04/17 04:29 Dohle Bodies Not Reportable 05/04/17 04:29 Pelger-Huet Anomaly Not Reportable 05/04/17 04:29 Hank Rods Not Reportable 05/04/17 04:29 Platelet Estimate Appears decreased 05/04/17 04:29 Clumped Platelets Not Reportable 05/04/17 04:29 Plt Clumps, EDTA Not Reportable 05/04/17 04:29 Large Platelets Not Reportable 05/04/17 04:29 Giant Platelets Not Reportable 05/04/17 04:29 Platelet Satelliting Not Reportable 05/04/17 04:29 Plt Morphology Comment Not Reportable 05/04/17 04:29 RBC Morphology Not Reportable 05/04/17 04:29 Dimorphic RBCs Not Reportable 05/04/17 04:29 Polychromasia Not Reportable 05/04/17 04:29 Hypochromasia Not Reportable 05/04/17 04:29 Poikilocytosis Not Reportable 05/04/17 04:29 Anisocytosis Not Reportable 05/04/17 04:29 Microcytosis Not Reportable 05/04/17 04:29 Macrocytosis 1+ 05/04/17 04:29 Spherocytes Not Reportable 05/04/17 04:29 Pappenheimer Bodies Not Reportable 05/04/17 04:29 Sickle Cells Not Reportable 05/04/17 04:29 Target Cells Not Reportable 05/04/17 04:29 Tear Drop Cells Not Reportable 05/04/17 04:29 Ovalocytes Not Reportable 05/04/17 04:29 Helmet Cells Not Reportable 05/04/17 04:29 [place] Bodies Not Reportable 05/04/17 04:29 [place] Rings Not Reportable 05/04/17 04:29 [place] Cells Not Reportable 05/04/17 04:29 Bite Cells Not Reportable 05/04/17 04:29 Crenated Cell Not Reportable 05/04/17 04:29 Elliptocytes Not Reportable 05/04/17 04:29 Acanthocytes (Spur) Not Reportable 05/04/17 04:29 Rouleaux Not Reportable 05/04/17 04:29 Hemoglobin C Crystals Not Reportable 05/04/17 04:29 Schistocytes Not Reportable 05/04/17 04:29 Malaria parasites Not Reportable 05/04/17 04:29 John Bodies Not Reportable 05/04/17 04:29 Hem Pathologist Commnt No 05/04/17 04:29 PT 21.4 Sec. (12.2-14.9) H 05/01/17 20:10 INR 1.76 (0.87-1.13) H 05/01/17 20:10 APTT 28.7 Sec. (24.2-36.6) 05/01/17 20:10 D-Dimer 577.80 ng/mlDDU (0-234) H 05/01/17 23:53 POC ABG pH 7.374 (7.35-7.45) 05/03/17 11:20 ABG pH 7.187 pH Units (7.350-7.450) L* 05/04/17 13:30 POC ABG pCO2 44.8 (35-45) 05/03/17 11:20 ABG pCO2 78.4 mm Hg 05/04/17 13:30 POC ABG pO2 75 (80-105) L 05/03/17 11:20 ABG pO2 50.3 mm Hg (80.0-90.0) L 05/04/17 13:30 POC ABG HCO3 26.2 05/03/17 11:20 ABG HCO3 29.1 mmol/L (20.0-26.0) H 05/04/17 13:30 POC ABG Total CO2 28 05/03/17 11:20 POC ABG O2 Sat 94 05/03/17 11:20 ABG O2 Saturation 75.1 % (95.0-99.0) L 05/04/17 13:30 ABG O2 Content 11.2 (0.0-44) 05/04/17 13:30 POC ABG Base Excess 1 05/03/17 11:20 ABG Base Excess -0.5 mmol/L (-2.0-3.0) 05/04/17 13:30 ABG Hemoglobin 10.8 gm/dl (12.0-16.0) L 05/04/17 13:30 ABG Carboxyhemoglobin 1.5 % (0.0-5.0) 05/04/17 13:30 ABG Methemoglobin 0.5 % (0.0-1.5) 05/04/17 13:30 Oxyhemoglobin 73.6 % (95.0-99.0) L 05/04/17 13:30 FiO2 21 % 05/04/17 13:30 Sodium 142 mmol/L (137-145) 05/04/17 04:29 Potassium 4.8 mmol/L (3.6-5.0) D 05/04/17 04:29 Chloride 108.6 mmol/L (98-107) H 05/04/17 04:29 Carbon Dioxide 19 mmol/L (22-30) L D 05/04/17 04:29 Anion Gap 19 mmol/L 05/04/17 04:29 BUN 36 mg/dL (7-17) H 05/04/17 04:29 Creatinine 0.8 mg/dL (0.7-1.2) 05/04/17 04:29 Estimated GFR > 60 ml/min 05/04/17 04:29 BUN/Creatinine Ratio 45 % 05/04/17 04:29 Glucose 144 mg/dL (65-100) H 05/04/17 04:29 Lactic Acid 1.30 mmol/L (0.7-2.0) 05/04/17 10:50 Calcium 6.8 mg/dL (8.4-10.2) L 05/04/17 04:29 Magnesium 1.90 mg/dL (1.7-2.3) 05/01/17 20:10 Total Bilirubin 0.40 mg/dL (0.1-1.2) 05/04/17 04:29 Direct Bilirubin 0.3 mg/dL (0-0.2) H 05/02/17 05:15 Indirect Bilirubin 0.2 mg/dL 05/02/17 05:15 AST 124 units/L (5-40) H 05/04/17 04:29 ALT 672 units/L (7-56) H 05/04/17 04:29 Alkaline Phosphatase 54 units/L (35-129) 05/04/17 04:29 Total Creatine Kinase 217 units/L (30-135) H 05/01/17 23:53 CK-MB (CK-2) 17.2 ng/mL (0.0-4.0) H 05/01/17 23:53 CK-MB (CK-2) Rel Index 7.9 (0-4) H 05/01/17 23:53 Troponin T 0.040 ng/mL (0.00-0.029) H D 05/04/17 17:19 C-Reactive Protein 2.20 mg/dL (0.00-1.30) H 05/04/17 15:03 Total Protein 4.5 g/dL (6.3-8.2) L D 05/04/17 04:29 Albumin 3.0 g/dL (3.9-5) L 05/04/17 04:29 Albumin/Globulin Ratio 2.0 % 05/04/17 04:29 Triglycerides 77 mg/dL (2-149) 05/01/17 20:10 Cholesterol 91 mg/dL (50-199) 05/01/17 20:10 LDL Cholesterol Direct 39 mg/dL (50-130) L 05/01/17 20:10 HDL Cholesterol 37 mg/dL (40-59) L 05/01/17 20:10 Cholesterol/HDL Ratio 2.45 % 05/01/17 20:10 Urine Color Yellow (Yellow) 05/02/17 04:00 Urine Turbidity Clear (Clear) 05/02/17 04:00 Urine pH 5.0 (5.0-7.0) 05/02/17 04:00 Ur Specific [place] 1.015 (1.003-1.030) 05/02/17 04:00 Urine Protein 30 mg/dl mg/dL (Negative) 05/02/17 04:00 Urine Glucose (UA) Neg mg/dL (Negative) 05/02/17 04:00 Urine Ketones Neg mg/dL (Negative) 05/02/17 04:00 Urine Blood Mod (Negative) 05/02/17 04:00 Urine Nitrite Neg (Negative) 05/02/17 04:00 Urine Bilirubin Neg (Negative) 05/02/17 04:00 Urine Urobilinogen < 2.0 mg/dL (<2.0) 05/02/17 04:00 Ur Leukocyte Esterase Neg (Negative) 05/02/17 04:00 Urine WBC (Auto) 1.0 /HPF (0.0-6.0) 05/02/17 04:00 Urine RBC (Auto) 1.0 /HPF (0.0-6.0) 05/02/17 04:00 U Epithel Cells (Auto) < 1.0 /HPF (0-13.0) 05/02/17 04:00 Hyaline Casts 4 /LPF 05/02/17 04:00 Urine Mucus Few /HPF 05/02/17 04:00 Vancomycin Trough 4.7 ug/mL (5.0-20.0) L 05/04/17 18:45
--- NOTE | 2017-05-05 13:16 | Progress Note ---
Assessment and Plan Assessment: 1) Severe sepsis with septic shock: worsening still on pressors, found on RVR Afib overnight now on amidoarone gtt, leukocytosis worsening. Etiology unclear. Initial CT head, CXR, UA and blood cx all negative. ? adrenal insufficiency, ?COPD exacerbation, ? occult etiology. CRP=2.4 2) History of colon cancer 3) Left renal mass seen on CT 4) COPD exacerbation 5) Resp failure - worsening Plan: -close monitoring for impending respiratory deterioration -obtain recent PET scan result. Patient is refusing CT scans orders in view of recent PET done -follow-up blood cultures, urine culture, respiratory cultures -follow-up procalcitonin -continue zosyn and vancomycin for now -add micafungin I am off tomorrow, I will see her back on Sunday Thank you Dr Jimenez for your consultation, will follow up with you. [place] Manuel MD Infectious Diseases Specialist [facility] ([facility]) M [phone] O [phone] Subjective Date of service: 05/05/17 Principal diagnosis: Severe Sepsis with Shock; Acute hypoxemic respiratory failure, AECOPD Interval history: Feels sick, more SOB, refusing CT scan, no fever. Still on levophed and now on amiodaron gtt due to RVR Afib Current Antimicrobials: Zosyn 05/02 Vancomycin 05/01 Previous Antimicrobials: Microbiology: Blood cultures: 05/01 ngtd Urine cultures: 05/02 neg Respiratory cultures: Tracheal asp 05/01 neg Objective - Exam Narrative Exam: General appearance: Alert in NAD, conversant Eyes: anicteric sclerae, moist conjunctivae; no lid-lag; PERRLA HENT: Atraumatic; oropharynx clear Neck: Trachea midline; supple, no thyromegaly or lymphadenopathy Lungs: distal BS brandy wheezing CV: RRR, no murmurs Abdomen: Soft, tense non tender Extremities: No peripheral edema or extremity lymphadenopathy Skin: Normal temperature, turgor and texture; no rash, ulcers or subcutaneous nodules Psych: Appropriate affect, alert and oriented to person, place and time. Neuro: alert and oriented x 3. Moving all extermities Lines: No CVL / PICC - Constitutional Vitals: Vital Signs Temp Pulse Resp BP Pulse Ox 97.3 F L 47 L 20 85/49 68 L 05/05/17 12:00 05/05/17 11:00 05/05/17 11:00 05/05/17 11:00 05/05/17 11:00 Temperature -Last 24 Hours Temperature 97.3 F Temperature 97.6 F Temperature 98.1 F - Labs CBC & Chem 7: 05/04/17 04:29 05/04/17 04:29 Labs: Abnormal lab results 05/04/17 05/04/17 05/04/17 Range/Units 13:30 15:03 17:19 ABG pH 7.187 L* (7.350-7.450) pH Units ABG pO2 50.3 L (80.0-90.0) mm Hg ABG HCO3 29.1 H (20.0-26.0) mmol/L ABG O2 Saturation 75.1 L (95.0-99.0) % ABG Hemoglobin 10.8 L (12.0-16.0) gm/dl Oxyhemoglobin 73.6 L (95.0-99.0) % Troponin T 0.040 H D (0.00-0.029) ng/mL C-Reactive Protein 2.20 H (0.00-1.30) mg/dL Vancomycin Trough (5.0-20.0) ug/mL 05/04/17 Range/Units 18:45 ABG pH (7.350-7.450) pH Units ABG pO2 (80.0-90.0) mm Hg ABG HCO3 (20.0-26.0) mmol/L ABG O2 Saturation (95.0-99.0) % ABG Hemoglobin (12.0-16.0) gm/dl Oxyhemoglobin (95.0-99.0) % Troponin T (0.00-0.029) ng/mL C-Reactive Protein (0.00-1.30) mg/dL Vancomycin Trough 4.7 L (5.0-20.0) ug/mL
[2017-05-05] MEDS: MYCAMINE 100 MG in NACL 0.9% 100 ML IV SCH (14:00)
[2017-05-05] MEDS ORDERED: VANCOMYCIN/NS 1 GM/250 ML 1 GM/250 ML BAG IV SCH (14:00)
[2017-05-05] MEDS ORDERED: VANCOMYCIN PHARMACY TO DOSE IV SCH (14:00)
--- NOTE | 2017-05-05 16:37 | Progress Note ---
Assessment and Plan Acute Hypoxemic Resp Failure s/p MVS Acute COPD exacerbation Severe Sepsis with Shock Acute Encephalopathy H/O Colon CA IVVD JAKY (I have had a candid discussion with patient and her son; i have explained that if she fails current BIPA she will need re-intubation; i have expressed to him that she continues to refuse certain test's which may be pivotal to getting her better - he will discuss with her) - stopped IVF in light of cvlinical CHF - get repeat CXR in am - get USS chest +/- thoracentesis - Left IJ line not well positioned for CVP monitoring - continue using PICC line to trend CVP's - continue midodrine - continue systemic steroids - continue levophed and wean for MAP > 65mmHg - continue empiric AB's and folow cultures (de-escalate per ID recs) - CRP & Lactate remain unremarkable - continue aspiration precautions - continue GI & VTE prophylaxis - continue current empiric AB's - follow cardiology evaluation ......she remains critically ill on life sustaining interventions inccluding vasopressors and at risk for further deterioration including ....36' CCT today without overlap Subjective Date of service: 05/05/17 Principal diagnosis: Severe Sepsis with Shock; Acute hypoxemic respiratory failure, AECOPD Interval history: Patient is seen today for: Acute Respiratory Failure s/p MVS; Severe Sepsis With Shock; Acute COPD exacerbation Seen and examined at bedside; 24hour events reviewed; nursing and respiratory care staff consulted; no adverse overnight events reported to me; remains on levophed and requiring even higher doses now at 12mics/min now; episode of A- fib with RVR followed by bradycardia on IV amiodarone last 24hrs; now requiring BIPAP support; JVD up to angle of jaw; CVP's trending up to 13-14 now; still with very poor insight and refusing care and test's Objective Vital Signs - 12hr 05/05/17 05/05/17 05/05/17 05:00 06:00 07:00 Temperature Pulse Rate 118 H 113 H 119 H Pulse Rate [ Anterior Bilateral Throughout] Pulse Rate [ Right Radial] Respiratory 24 18 21 Rate Respiratory Rate [Anterior Bilateral Throughout] Blood Pressure 101/57 104/54 98/46 O2 Sat by Pulse 96 99 77 L Oximetry 05/05/17 05/05/17 05/05/17 07:57 08:00 08:01 Temperature 97.6 F Pulse Rate 112 H Pulse Rate [ 101 H Anterior Bilateral Throughout] Pulse Rate [ Right Radial] Respiratory 26 H Rate Respiratory 25 H Rate [Anterior Bilateral Throughout] Blood Pressure 102/52 O2 Sat by Pulse 98 98 96 Oximetry 05/05/17 05/05/17 05/05/17 08:08 09:00 10:00 Temperature Pulse Rate 111 H 109 H Pulse Rate [ 115 H Anterior Bilateral Throughout] Pulse Rate [ Right Radial] Respiratory 22 21 Rate Respiratory 26 H Rate [Anterior Bilateral Throughout] Blood Pressure 93/58 106/56 O2 Sat by Pulse 90 100 Oximetry 05/05/17 05/05/17 05/05/17 11:00 12:00 12:01 Temperature 97.3 F L Pulse Rate 47 L 47 L Pulse Rate [ Anterior Bilateral Throughout] Pulse Rate [ 56 L Right Radial] Respiratory 20 26 H 22 Rate Respiratory Rate [Anterior Bilateral Throughout] Blood Pressure 85/49 100/35 O2 Sat by Pulse 68 L 94 89 Oximetry 05/05/17 05/05/17 05/05/17 13:00 13:55 14:00 Temperature Pulse Rate 48 L 48 L Pulse Rate [ 51 L Anterior Bilateral Throughout] Pulse Rate [ Right Radial] Respiratory 23 27 H Rate Respiratory 24 Rate [Anterior Bilateral Throughout] Blood Pressure 119/55 116/49 O2 Sat by Pulse 97 92 Oximetry 05/05/17 15:00 Temperature Pulse Rate Pulse Rate [ Anterior Bilateral Throughout] Pulse Rate [ Right Radial] Respiratory Rate Respiratory Rate [Anterior Bilateral Throughout] Blood Pressure O2 Sat by Pulse 96 Oximetry Constitutional: appears uncomfortable, other (somnolent) Eyes: non-icteric ENT: oropharynx moist, other (normocephalic; no bruit) Neck: supple, no lymphadenopathy, JVD (up to angle of jaw), other (right IJ CVL in place) Effort: mildly labored Ascultation: Bilateral: clear, diminished breath sounds (bases), other ( prolonged exp phase) Cardiovascular: regular rate and rhythm, other Gastrointestinal: normoactive bowel sounds, soft, non-tender, non-distended, other (no HSM) Integumentary: other (poor skin turgor; mild tenting) Extremities: no cyanosis, no edema, pink and warm, pulses normal, no ischemia or petechiae Neurologic: normal mental status, non-focal exam, pupils equal and round, motor strength normal and Psychiatric: other (poor insight overall of the severity of her condition) CBC and BMP: 05/04/17 04:29 05/04/17 04:29 ABG, PT/INR, D-dimer: ABG POC ABG pH 7.374 (7.35-7.45) 05/03/17 11:20 ABG pH 7.187 pH Units (7.350-7.450) L* 05/04/17 13:30 POC ABG pCO2 44.8 (35-45) 05/03/17 11:20 ABG pCO2 78.4 mm Hg 05/04/17 13:30 POC ABG pO2 75 (80-105) L 05/03/17 11:20 ABG pO2 50.3 mm Hg (80.0-90.0) L 05/04/17 13:30 POC ABG HCO3 26.2 05/03/17 11:20 POC ABG Total CO2 28 05/03/17 11:20 POC ABG O2 Sat 94 05/03/17 11:20 ABG O2 Saturation 75.1 % (95.0-99.0) L 05/04/17 13:30 PT/INR, D-dimer PT 21.4 Sec. (12.2-14.9) H 05/01/17 20:10 INR 1.76 (0.87-1.13) H 05/01/17 20:10 D-Dimer 577.80 ng/mlDDU (0-234) H 05/01/17 23:53 Abnormal lab findings: Abnormal Labs 05/01/17 05/01/17 05/02/17 23:53 23:53 04:51 WBC RBC MCV MCH Plt Count Seg Neuts % (Manual) Lymphocytes % (Manual) Nucleated RBC % Seg Neutrophils # Man Lymphocytes # (Manual) D-Dimer 577.80 H POC ABG pH 7.269 L ABG pH POC ABG pCO2 57.3 H POC ABG pO2 69 L ABG pO2 ABG HCO3 ABG O2 Saturation ABG Hemoglobin Oxyhemoglobin Sodium Chloride Carbon Dioxide BUN Creatinine Glucose Lactic Acid Calcium Direct Bilirubin AST ALT Alkaline Phosphatase Total Creatine Kinase 217 H CK-MB (CK-2) 17.2 H CK-MB (CK-2) Rel Index 7.9 H Troponin T C-Reactive Protein Total Protein Albumin Vancomycin Trough 05/02/17 05/02/17 05/02/17 05:15 05:15 05:15 WBC 22.7 H RBC 3.22 L MCV 108 H MCH 35 H Plt Count Seg Neuts % (Manual) 76.0 H Lymphocytes % (Manual) 1.0 L Nucleated RBC % 1.0 H Seg Neutrophils # Man 17.3 H Lymphocytes # (Manual) 0.2 L D-Dimer POC ABG pH ABG pH POC ABG pCO2 POC ABG pO2 ABG pO2 ABG HCO3 ABG O2 Saturation ABG Hemoglobin Oxyhemoglobin Sodium 151 H Chloride 111.3 H Carbon Dioxide BUN 59 H Creatinine 1.4 H Glucose 212 H Lactic Acid Calcium 6.8 L Direct Bilirubin AST ALT Alkaline Phosphatase Total Creatine Kinase CK-MB (CK-2) CK-MB (CK-2) Rel Index Troponin T 0.079 H D C-Reactive Protein Total Protein Albumin Vancomycin Trough 05/02/17 05/02/17 05/02/17 05:15 11:12 17:05 WBC RBC MCV MCH Plt Count Seg Neuts % (Manual) Lymphocytes % (Manual) Nucleated RBC % Seg Neutrophils # Man Lymphocytes # (Manual) D-Dimer POC ABG pH 7.269 L ABG pH POC ABG pCO2 57.4 H POC ABG pO2 76 L ABG pO2 ABG HCO3 ABG O2 Saturation ABG Hemoglobin Oxyhemoglobin Sodium Chloride Carbon Dioxide BUN Creatinine Glucose Lactic Acid 3.30 H* Calcium Direct Bilirubin 0.3 H AST 315 H ALT 418 H Alkaline Phosphatase 28 L Total Creatine Kinase CK-MB (CK-2) CK-MB (CK-2) Rel Index Troponin T C-Reactive Protein Total Protein 3.7 L Albumin 2.4 L Vancomycin Trough 05/03/17 05/03/17 05/03/17 05:15 10:00 10:00 WBC 25.0 H RBC 2.96 L MCV 107 H MCH 35 H Plt Count 127 L Seg Neuts % (Manual) Lymphocytes % (Manual) Nucleated RBC % Seg Neutrophils # Man Lymphocytes # (Manual) D-Dimer POC ABG pH 7.497 H ABG pH POC ABG pCO2 31.7 L POC ABG pO2 ABG pO2 ABG HCO3 ABG O2 Saturation ABG Hemoglobin Oxyhemoglobin Sodium 146 H Chloride 110.2 H Carbon Dioxide BUN 44 H Creatinine Glucose 114 H Lactic Acid Calcium 6.6 L Direct Bilirubin AST ALT Alkaline Phosphatase Total Creatine Kinase CK-MB (CK-2) CK-MB (CK-2) Rel Index Troponin T C-Reactive Protein Total Protein Albumin Vancomycin Trough 05/03/17 05/04/17 05/04/17 11:20 04:29 04:29 WBC 29.2 H RBC 3.07 L MCV 111 H MCH 35 H Plt Count 70 L Seg Neuts % (Manual) 96.0 H Lymphocytes % (Manual) 0 L Nucleated RBC % 1.0 H Seg Neutrophils # Man 28.0 H Lymphocytes # (Manual) 0.0 L D-Dimer POC ABG pH ABG pH POC ABG pCO2 POC ABG pO2 75 L ABG pO2 ABG HCO3 ABG O2 Saturation ABG Hemoglobin Oxyhemoglobin Sodium Chloride 108.6 H Carbon Dioxide 19 L D BUN 36 H Creatinine Glucose 144 H Lactic Acid Calcium 6.8 L Direct Bilirubin AST 124 H ALT 672 H Alkaline Phosphatase Total Creatine Kinase CK-MB (CK-2) CK-MB (CK-2) Rel Index Troponin T C-Reactive Protein Total Protein 4.5 L D Albumin 3.0 L Vancomycin Trough 05/04/17 05/04/17 05/04/17 10:45 13:30 15:03 WBC RBC MCV MCH Plt Count Seg Neuts % (Manual) Lymphocytes % (Manual) Nucleated RBC % Seg Neutrophils # Man Lymphocytes # (Manual) D-Dimer POC ABG pH ABG pH 7.187 L* POC ABG pCO2 POC ABG pO2 ABG pO2 50.3 L ABG HCO3 29.1 H ABG O2 Saturation 75.1 L ABG Hemoglobin 10.8 L Oxyhemoglobin 73.6 L Sodium Chloride Carbon Dioxide BUN Creatinine Glucose Lactic Acid Calcium Direct Bilirubin AST ALT Alkaline Phosphatase Total Creatine Kinase CK-MB (CK-2) CK-MB (CK-2) Rel Index Troponin T C-Reactive Protein 2.40 H 2.20 H Total Protein Albumin Vancomycin Trough 05/04/17 05/04/17 17:19 18:45 WBC RBC MCV MCH Plt Count Seg Neuts % (Manual) Lymphocytes % (Manual) Nucleated RBC % Seg Neutrophils # Man Lymphocytes # (Manual) D-Dimer POC ABG pH ABG pH POC ABG pCO2 POC ABG pO2 ABG pO2 ABG HCO3 ABG O2 Saturation ABG Hemoglobin Oxyhemoglobin Sodium Chloride Carbon Dioxide BUN Creatinine Glucose Lactic Acid Calcium Direct Bilirubin AST ALT Alkaline Phosphatase Total Creatine Kinase CK-MB (CK-2) CK-MB (CK-2) Rel Index Troponin T 0.040 H D C-Reactive Protein Total Protein Albumin Vancomycin Trough 4.7 L Chest x-ray: pending
[2017-05-05 19:36] LABS: ISTAT Base Excess 1; ISTAT HCO3 29.2; ISTAT PH 7.216 (7.35-7.45); ISTAT PO2 86 (80-105); ISTAT SO2 94; ISTAT TCO2 31
[2017-05-05 22:54] LABS: Hematocrit 36.8 % (30.3-42.9); Hemoglobin 11.3 gm/dl (10.1-14.3); Mean Corpuscular HGB Conc 31 % (30-34); Mean Corpuscular Hemoglobin 34 pg (28-32); Red Blood Count 3.33 M/mm3 (3.65-5.03); Red Cell Distribution Width 15.2 % (13.2-15.2)
[2017-05-05 22:57] LABS: Mean Corpuscular Volume 111 fl (79-97); Platelet Count 82 K/mm3 (140-440); White Blood Count 25.6 K/mm3 (4.5-11.0)
[2017-05-05 23:13] LABS: ISTAT Base Excess 1; ISTAT HCO3 29.7; ISTAT PCO2 78.1 (35-45); ISTAT PH 7.188 (7.35-7.45); ISTAT PO2 81 (80-105); ISTAT SO2 92; ISTAT TCO2 32
[2017-05-05 23:25] LABS: Basophils % (Manual) 0 % (0.0-1.8); Blastocytes % (Manual) 0 %; Eosinophils % (Manual) 0 % (0.0-4.3)
[2017-05-05 23:27] LABS: Anisocytosis 1+; Diff Status Complete; Macrocytosis 1+; Nucleated Red Blood Cells 0.5 % (0.0-0.9); Platelet Estimate Consistent w Auto; Total Cells Counted Percent 1.5
[2017-05-05] MEDS ORDERED: ATIVAN IV PRN (23:28)
[2017-05-06] MEDS: CORDARONE PO SCH ×3 (00:34→22:44)
[2017-05-06] MEDS: PROAMATINE PO SCH ×3 (00:37→22:44)
[2017-05-06] MEDS: DUONEB *Not for PRN Use IH SCH ×4 (02:08→19:46)
[2017-05-06 05:42] LABS: Mean Corpuscular HGB Conc 30 % (30-34); Mean Corpuscular Hemoglobin 35 pg (28-32); Red Blood Count 3.35 M/mm3 (3.65-5.03); White Blood Count 19.4 K/mm3 (4.5-11.0)
[2017-05-06 05:54] LABS: Hematocrit 38.9 % (30.3-42.9); Hemoglobin 11.6 gm/dl (10.1-14.3); Mean Corpuscular Volume 116 fl (79-97); Platelet Count 68 K/mm3 (140-440)
[2017-05-06 06:03] LABS: Anion Gap 27 mmol/L; BUN/Creatinine Ratio 29; Blood Urea Nitrogen 29 mg/dL (7-17); Calcium 7.5 mg/dL (8.4-10.2); Carbon Dioxide 19 mmol/L (22-30); Chloride 110.5 mmol/L (98-107); Glucose 85 mg/dL (65-100); Potassium 5.6 mmol/L (3.6-5.0); Sodium 151 mmol/L (137-145)
[2017-05-06] MEDS: LEVOPHED DRIP 4 MG/NS 250 ML 4 MG/250 ML BAG IV SCH ×3 (07:04→16:58)
[2017-05-06] MEDS: PEPCID IV SCH ×2 (09:40→22:31)
[2017-05-06] MEDS: MYCAMINE 100 MG in NACL 0.9% 100 ML IV SCH (09:40)
--- NOTE | 2017-05-06 10:28 | Progress Note ---
Assessment and Plan 1. Respiratory failure currently on Ventimask 2. Altered mental status and use since yesterday 3. Atrial fibrillation currently in sinus rhythm 4. Sepsis/septic shock 5. COPD Plan. Stress MPI normal. Echo LVEF normal Patient currently has refused placement on a BiPAP machine on. Pulmonary intervention she currently is progressively lethargic prognosis is poor. Discussion with family members currently at bedside. Supportive critical care at this stage Subjective Date of service: 05/06/17 Principal diagnosis: Severe Sepsis with Shock; Acute hypoxemic respiratory failure, AECOPD Interval history: Patient is lethargic today and is currently on a Ventimask. Events since last seen by me as documented in the progress notes. Patient has refused for the pulmonary intervention.. Objective Vital Signs Temp Pulse Pulse Pulse Resp Resp BP 05/06/17 10:09 05/06/17 09:00 72 24 125/41 05/06/17 08:00 74 28 H 106/43 05/06/17 07:34 05/06/17 07:01 72 26 H 111/38 05/06/17 06:00 75 24 135/53 05/06/17 05:00 54 L 15 76/37 05/06/17 04:00 97.1 F L 67 21 132/33 05/06/17 03:01 81 23 126/48 05/06/17 02:01 90 19 151/56 05/06/17 01:01 75 21 126/57 05/06/17 00:00 97.6 F 69 72 16 130/60 05/05/17 23:00 68 16 134/58 05/05/17 22:00 58 L 20 131/50 05/05/17 21:00 58 L 20 133/61 05/05/17 20:50 57 L 26 H 126/59 05/05/17 20:17 05/05/17 20:09 05/05/17 20:01 57 L 26 H 119/64 05/05/17 20:00 97.1 F L 53 L 05/05/17 19:00 54 L 22 127/50 05/05/17 18:25 56 L 21 97/50 05/05/17 18:01 55 L 24 99/31 05/05/17 17:38 52 L 23 115/61 05/05/17 17:01 55 L 24 111/36 05/05/17 16:58 97.5 F L 05/05/17 16:01 55 L 16 121/70 05/05/17 16:00 05/05/17 15:01 55 L 25 H 92/56 05/05/17 15:00 05/05/17 14:00 48 L 27 H 116/49 05/05/17 13:55 51 L 24 05/05/17 13:00 48 L 23 119/55 05/05/17 12:01 47 L 22 100/35 05/05/17 12:00 97.3 F L 56 L 26 H 05/05/17 11:00 47 L 20 85/49 Pulse Ox 05/06/17 10:09 92 05/06/17 09:00 87 05/06/17 08:00 49 L 05/06/17 07:34 88 05/06/17 07:01 84 05/06/17 06:00 57 L 05/06/17 05:00 36 L 05/06/17 04:00 29 L 05/06/17 03:01 38 L 05/06/17 02:01 69 L 05/06/17 01:01 42 L 05/06/17 00:00 97 05/05/17 23:00 80 L 05/05/17 22:00 98 05/05/17 21:00 99 05/05/17 20:50 98 05/05/17 20:17 94 05/05/17 20:09 93 05/05/17 20:01 05/05/17 20:00 92 05/05/17 19:00 96 05/05/17 18:25 97 05/05/17 18:01 95 05/05/17 17:38 94 05/05/17 17:01 87 05/05/17 16:58 05/05/17 16:01 95 05/05/17 16:00 94 05/05/17 15:01 91 05/05/17 15:00 96 05/05/17 14:00 92 05/05/17 13:55 05/05/17 13:00 97 05/05/17 12:01 89 05/05/17 12:00 94 05/05/17 11:00 68 L - Physical Examination General: No Apparent Distress, Cachectic HEENT: Positive: PERRL, Normocephaly, Mucus Membranes Moist Neck: Positive: neck supple. Negative: JVD/HJR Cardiac: Positive: Regular Rate, S1/S2, PMI, Laterally Displaced Lungs: Positive: Wheezes, Rhonchi Neuro: Positive: Grossly Intact, No Lateralizing Findings, Other (lethargic) Abdomen: Positive: Soft, Active Bowel Sounds Extremities: Present: normal. Absent: edema - Labs and Meds CBC 05/05/17 05/06/17 Range/Units 22:30 04:45 WBC 25.6 H 19.4 H (4.5-11.0) K/mm3 RBC 3.33 L 3.35 L (3.65-5.03) M/mm3 Hgb 11.3 11.6 (10.1-14.3) gm/dl Hct 36.8 38.9 (30.3-42.9) % Plt Count 82 L 68 L (140-440) K/mm3 Comprehensive Metabolic Panel 05/06/17 Range/Units 04:45 Sodium 151 H D (137-145) mmol/L Potassium 5.6 H (3.6-5.0) mmol/L Chloride 110.5 H (98-107) mmol/L Carbon Dioxide 19 L (22-30) mmol/L BUN 29 H (7-17) mg/dL Creatinine 1.0 (0.7-1.2) mg/dL Glucose 85 (65-100) mg/dL Calcium 7.5 L (8.4-10.2) mg/dL - Imaging and Cardiology EKG: image reviewed
--- NOTE | 2017-05-06 16:34 | Progress Note ---
Assessment and Plan Acute Hypoxemic Resp Failure s/p MVS Acute COPD exacerbation Severe Sepsis with Shock Acute Encephalopathy H/O Colon CA IVVD JAKY (I have suggested hospice consultation and they have agreed) - stopped IVF in light of clinical CHF - Left IJ line not well positioned for CVP monitoring - continue using PICC line to trend CVP's - continue midodrine - continue systemic steroids - continue levophed and wean for MAP > 65mmHg - continue empiric AB's and folow cultures (de-escalate per ID recs) - CRP & Lactate remain unremarkable - continue aspiration precautions - continue GI & VTE prophylaxis - continue current empiric AB's - follow cardiology evaluation ......await Hospice evaluation Subjective Date of service: 05/06/17 Principal diagnosis: Severe Sepsis with Shock; Acute hypoxemic respiratory failure, AECOPD Interval history: Patient is seen today for: Acute Respiratory Failure s/p MVS; Severe Sepsis With Shock; Acute COPD exacerbation Seen and examined at bedside; 24hour events reviewed; nursing and respiratory care staff consulted; no adverse overnight events reported to me; remains on levophed; she elected for comfort care / refused intubation per her son but wants to discuss end of life issues further Objective Vital Signs - 12hr 05/06/17 05/06/17 05/06/17 05:00 06:00 07:01 Pulse Rate 54 L 75 72 Pulse Rate [ Anterior Bilateral Throughout] Respiratory 15 24 26 H Rate Respiratory Rate [Anterior Bilateral Throughout] Blood Pressure 76/37 135/53 111/38 O2 Sat by Pulse 36 L 57 L 84 Oximetry 05/06/17 05/06/17 05/06/17 07:34 08:00 09:00 Pulse Rate 74 72 Pulse Rate [ Anterior Bilateral Throughout] Respiratory 28 H 24 Rate Respiratory Rate [Anterior Bilateral Throughout] Blood Pressure 106/43 125/41 O2 Sat by Pulse 88 49 L 87 Oximetry 05/06/17 05/06/17 05/06/17 10:00 10:09 11:00 Pulse Rate 73 75 Pulse Rate [ Anterior Bilateral Throughout] Respiratory 23 20 Rate Respiratory Rate [Anterior Bilateral Throughout] Blood Pressure 111/39 100/41 O2 Sat by Pulse 90 92 92 Oximetry 05/06/17 05/06/17 05/06/17 12:00 13:00 13:55 Pulse Rate 72 70 Pulse Rate [ 76 Anterior Bilateral Throughout] Respiratory 25 H 24 Rate Respiratory 18 Rate [Anterior Bilateral Throughout] Blood Pressure 112/35 106/32 O2 Sat by Pulse 93 73 L Oximetry 05/06/17 05/06/17 05/06/17 14:00 14:08 15:00 Pulse Rate 71 79 Pulse Rate [ 75 Anterior Bilateral Throughout] Respiratory 25 H 25 H Rate Respiratory 18 Rate [Anterior Bilateral Throughout] Blood Pressure 125/38 122/30 O2 Sat by Pulse 92 50 L Oximetry 05/06/17 16:00 Pulse Rate 80 Pulse Rate [ Anterior Bilateral Throughout] Respiratory 22 Rate Respiratory Rate [Anterior Bilateral Throughout] Blood Pressure 104/53 O2 Sat by Pulse Oximetry Constitutional: appears uncomfortable, other (somnolent) Eyes: non-icteric ENT: oropharynx moist, other (normocephalic; no bruit) Neck: supple, no lymphadenopathy, JVD (up to angle of jaw), other (right IJ CVL in place) Effort: mildly labored Ascultation: Bilateral: clear, diminished breath sounds (bases), other ( prolonged exp phase) Cardiovascular: regular rate and rhythm, other Gastrointestinal: normoactive bowel sounds, soft, non-tender, non-distended, other (no HSM) Integumentary: other (poor skin turgor; mild tenting) Extremities: no cyanosis, no edema, pink and warm, pulses normal, no ischemia or petechiae Neurologic: normal mental status, non-focal exam, pupils equal and round, motor strength normal and Psychiatric: other (poor insight overall of the severity of her condition) CBC and BMP: 05/06/17 04:45 05/06/17 04:45 ABG, PT/INR, D-dimer: ABG POC ABG pH 7.188 (7.35-7.45) L 05/05/17 23:02 ABG pH 7.187 pH Units (7.350-7.450) L* 05/04/17 13:30 POC ABG pCO2 78.1 (35-45) H 05/05/17 23:02 ABG pCO2 78.4 mm Hg 05/04/17 13:30 POC ABG pO2 81 (80-105) 05/05/17 23:02 ABG pO2 50.3 mm Hg (80.0-90.0) L 05/04/17 13:30 POC ABG HCO3 29.7 05/05/17 23:02 POC ABG Total CO2 32 05/05/17 23:02 POC ABG O2 Sat 92 05/05/17 23:02 ABG O2 Saturation 75.1 % (95.0-99.0) L 05/04/17 13:30 PT/INR, D-dimer PT 21.4 Sec. (12.2-14.9) H 05/01/17 20:10 INR 1.76 (0.87-1.13) H 05/01/17 20:10 D-Dimer 577.80 ng/mlDDU (0-234) H 05/01/17 23:53 Abnormal lab findings: Abnormal Labs 05/01/17 05/01/17 05/02/17 23:53 23:53 04:51 WBC RBC MCV MCH RDW Plt Count Seg Neuts % (Manual) Lymphocytes % (Manual) Nucleated RBC % Seg Neutrophils # Man Lymphocytes # (Manual) D-Dimer 577.80 H POC ABG pH 7.269 L ABG pH POC ABG pCO2 57.3 H POC ABG pO2 69 L ABG pO2 ABG HCO3 ABG O2 Saturation ABG Hemoglobin Oxyhemoglobin Sodium Potassium Chloride Carbon Dioxide BUN Creatinine Glucose Lactic Acid Calcium Direct Bilirubin AST ALT Alkaline Phosphatase Total Creatine Kinase 217 H CK-MB (CK-2) 17.2 H CK-MB (CK-2) Rel Index 7.9 H Troponin T C-Reactive Protein Total Protein Albumin Vancomycin Trough 05/02/17 05/02/17 05/02/17 05:15 05:15 05:15 WBC 22.7 H RBC 3.22 L MCV 108 H MCH 35 H RDW Plt Count Seg Neuts % (Manual) 76.0 H Lymphocytes % (Manual) 1.0 L Nucleated RBC % 1.0 H Seg Neutrophils # Man 17.3 H Lymphocytes # (Manual) 0.2 L D-Dimer POC ABG pH ABG pH POC ABG pCO2 POC ABG pO2 ABG pO2 ABG HCO3 ABG O2 Saturation ABG Hemoglobin Oxyhemoglobin Sodium 151 H Potassium Chloride 111.3 H Carbon Dioxide BUN 59 H Creatinine 1.4 H Glucose 212 H Lactic Acid Calcium 6.8 L Direct Bilirubin AST ALT Alkaline Phosphatase Total Creatine Kinase CK-MB (CK-2) CK-MB (CK-2) Rel Index Troponin T 0.079 H D C-Reactive Protein Total Protein Albumin Vancomycin Trough 05/02/17 05/02/17 05/02/17 05:15 11:12 17:05 WBC RBC MCV MCH RDW Plt Count Seg Neuts % (Manual) Lymphocytes % (Manual) Nucleated RBC % Seg Neutrophils # Man Lymphocytes # (Manual) D-Dimer POC ABG pH 7.269 L ABG pH POC ABG pCO2 57.4 H POC ABG pO2 76 L ABG pO2 ABG HCO3 ABG O2 Saturation ABG Hemoglobin Oxyhemoglobin Sodium Potassium Chloride Carbon Dioxide BUN Creatinine Glucose Lactic Acid 3.30 H* Calcium Direct Bilirubin 0.3 H AST 315 H ALT 418 H Alkaline Phosphatase 28 L Total Creatine Kinase CK-MB (CK-2) CK-MB (CK-2) Rel Index Troponin T C-Reactive Protein Total Protein 3.7 L Albumin 2.4 L Vancomycin Trough 05/03/17 05/03/17 05/03/17 05:15 10:00 10:00 WBC 25.0 H RBC 2.96 L MCV 107 H MCH 35 H RDW Plt Count 127 L Seg Neuts % (Manual) Lymphocytes % (Manual) Nucleated RBC % Seg Neutrophils # Man Lymphocytes # (Manual) D-Dimer POC ABG pH 7.497 H ABG pH POC ABG pCO2 31.7 L POC ABG pO2 ABG pO2 ABG HCO3 ABG O2 Saturation ABG Hemoglobin Oxyhemoglobin Sodium 146 H Potassium Chloride 110.2 H Carbon Dioxide BUN 44 H Creatinine Glucose 114 H Lactic Acid Calcium 6.6 L Direct Bilirubin AST ALT Alkaline Phosphatase Total Creatine Kinase CK-MB (CK-2) CK-MB (CK-2) Rel Index Troponin T C-Reactive Protein Total Protein Albumin Vancomycin Trough 05/03/17 05/04/17 05/04/17 11:20 04:29 04:29 WBC 29.2 H RBC 3.07 L MCV 111 H MCH 35 H RDW Plt Count 70 L Seg Neuts % (Manual) 96.0 H Lymphocytes % (Manual) 0 L Nucleated RBC % 1.0 H Seg Neutrophils # Man 28.0 H Lymphocytes # (Manual) 0.0 L D-Dimer POC ABG pH ABG pH POC ABG pCO2 POC ABG pO2 75 L ABG pO2 ABG HCO3 ABG O2 Saturation ABG Hemoglobin Oxyhemoglobin Sodium Potassium Chloride 108.6 H Carbon Dioxide 19 L D BUN 36 H Creatinine Glucose 144 H Lactic Acid Calcium 6.8 L Direct Bilirubin AST 124 H ALT 672 H Alkaline Phosphatase Total Creatine Kinase CK-MB (CK-2) CK-MB (CK-2) Rel Index Troponin T C-Reactive Protein Total Protein 4.5 L D Albumin 3.0 L Vancomycin Trough 05/04/17 05/04/17 05/04/17 10:45 13:30 15:03 WBC RBC MCV MCH RDW Plt Count Seg Neuts % (Manual) Lymphocytes % (Manual) Nucleated RBC % Seg Neutrophils # Man Lymphocytes # (Manual) D-Dimer POC ABG pH ABG pH 7.187 L* POC ABG pCO2 POC ABG pO2 ABG pO2 50.3 L ABG HCO3 29.1 H ABG O2 Saturation 75.1 L ABG Hemoglobin 10.8 L Oxyhemoglobin 73.6 L Sodium Potassium Chloride Carbon Dioxide BUN Creatinine Glucose Lactic Acid Calcium Direct Bilirubin AST ALT Alkaline Phosphatase Total Creatine Kinase CK-MB (CK-2) CK-MB (CK-2) Rel Index Troponin T C-Reactive Protein 2.40 H 2.20 H Total Protein Albumin Vancomycin Trough 05/04/17 05/04/17 05/05/17 17:19 18:45 19:28 WBC RBC MCV MCH RDW Plt Count Seg Neuts % (Manual) Lymphocytes % (Manual) Nucleated RBC % Seg Neutrophils # Man Lymphocytes # (Manual) D-Dimer POC ABG pH 7.216 L ABG pH POC ABG pCO2 72.0 H POC ABG pO2 ABG pO2 ABG HCO3 ABG O2 Saturation ABG Hemoglobin Oxyhemoglobin Sodium Potassium Chloride Carbon Dioxide BUN Creatinine Glucose Lactic Acid Calcium Direct Bilirubin AST ALT Alkaline Phosphatase Total Creatine Kinase CK-MB (CK-2) CK-MB (CK-2) Rel Index Troponin T 0.040 H D C-Reactive Protein Total Protein Albumin Vancomycin Trough 4.7 L 05/05/17 05/05/17 05/06/17 22:30 23:02 04:45 WBC 25.6 H 19.4 H RBC 3.33 L 3.35 L MCV 111 H 116 H MCH 34 H 35 H RDW 16.0 H Plt Count 82 L 68 L Seg Neuts % (Manual) 96.0 H Lymphocytes % (Manual) 2.5 L Nucleated RBC % Seg Neutrophils # Man 24.6 H Lymphocytes # (Manual) 0.6 L D-Dimer POC ABG pH 7.188 L ABG pH POC ABG pCO2 78.1 H POC ABG pO2 ABG pO2 ABG HCO3 ABG O2 Saturation ABG Hemoglobin Oxyhemoglobin Sodium Potassium Chloride Carbon Dioxide BUN Creatinine Glucose Lactic Acid Calcium Direct Bilirubin AST ALT Alkaline Phosphatase Total Creatine Kinase CK-MB (CK-2) CK-MB (CK-2) Rel Index Troponin T C-Reactive Protein Total Protein Albumin Vancomycin Trough 05/06/17 04:45 WBC RBC MCV MCH RDW Plt Count Seg Neuts % (Manual) Lymphocytes % (Manual) Nucleated RBC % Seg Neutrophils # Man Lymphocytes # (Manual) D-Dimer POC ABG pH ABG pH POC ABG pCO2 POC ABG pO2 ABG pO2 ABG HCO3 ABG O2 Saturation ABG Hemoglobin Oxyhemoglobin Sodium 151 H D Potassium 5.6 H Chloride 110.5 H Carbon Dioxide 19 L BUN 29 H Creatinine Glucose Lactic Acid Calcium 7.5 L Direct Bilirubin AST ALT Alkaline Phosphatase Total Creatine Kinase CK-MB (CK-2) CK-MB (CK-2) Rel Index Troponin T C-Reactive Protein Total Protein Albumin Vancomycin Trough
--- NOTE | 2017-05-06 16:43 | Progress Note ---
Assessment and Plan Assessment and plan: Patient is 61-year-old woman with a hypertension and colon cancer who presented with sob, AMS requiring intubation. Now extubated but still on Levophed. This morning the family made a decision for AND. -Acute combined respiratory failure s/p extubation: continue O2 support -Acute exacerbation of COPD: iv steriods, neb -Septic Shock, still on Levophed, will discontinue once family decide to, they are waiting other family members on IV antibiotics -Severe Malnutrition: Hotel Maintenance Engineer consult -Acute encephalopahty, poa: due to above A. fib/A flutter with RVR: Consulted cardiology, started on Cardizem drip, now on iv Amiodarone per Cardiology Dropping platelet count: HIT assay ordered and Lovenox discontinued Bilateral pleural effusion: pulmonology consulteed Code status - AND Prognosis:poor The high probability of a clinically significant, sudden or life threatening deterioration of the [CV] system(s) required my full and direct attention, intervention and personal management. The aggregate critical care time was [31 minutes] minutes. This time is in addition to time spent performing reported procedures but includes the following: [x] Data Review and interpretation [x] Patient assessment and monitoring of vital signs [x] Documentation [x] Medication orders and management History Interval history: Patient was seen and evaluated this morning, she is in no respiratory distress. Patient's family sign AND. Hospitalist Physical - Physical exam Narrative exam: Agencies in cardiopulmonary distress, she is on no present mask The patient appeared well nourished and normally developed. Vital signs as documented. Head exam is unremarkable. No scleral icterus . Neck is without jugular venous distension, thyromegaly, or carotid bruits. Lungs are clear to auscultation. Cardiac exam reveals regular rate and Rhythm. First and second heart sounds normal. No murmurs, rubs or gallops. Abdominal exam reveals normal bowel sounds, no masses, no organomegaly and no aortic enlargement. Extremities are nonedematous and both femoral and pedal pulses are normal. TRAFFIC RATE ANALYST: Alert and oriented 3. No focal weakness. - Constitutional Vitals: Temp Pulse Resp BP Pulse Ox 97.1 F L 80 22 104/53 50 L 05/06/17 04:00 05/06/17 16:00 05/06/17 16:00 05/06/17 16:00 05/06/17 15:00 General appearance: Present: no acute distress Results - Labs CBC & Chem 7: 05/06/17 04:45 05/06/17 04:45 Labs: Laboratory Last Values WBC 19.4 K/mm3 (4.5-11.0) H 05/06/17 04:45 RBC 3.35 M/mm3 (3.65-5.03) L 05/06/17 04:45 Hgb 11.6 gm/dl (10.1-14.3) 05/06/17 04:45 Hct 38.9 % (30.3-42.9) 05/06/17 04:45 MCV 116 fl (79-97) H 05/06/17 04:45 MCH 35 pg (28-32) H 05/06/17 04:45 MCHC 30 % (30-34) 05/06/17 04:45 RDW 16.0 % (13.2-15.2) H 05/06/17 04:45 Plt Count 68 K/mm3 (140-440) L 05/06/17 04:45 Lymph % (Auto) 2.5 % (13.4-35.0) L 05/01/17 20:10 Clare % (Auto) 9.1 % (0.0-7.3) H 05/01/17 20:10 Eos % (Auto) 0.0 % (0.0-4.3) 05/01/17 20:10 Baso % (Auto) 0.2 % (0.0-1.8) 05/01/17 20:10 Lymph # 0.3 K/mm3 (1.2-5.4) L 05/01/17 20:10 Clare # 1.2 K/mm3 (0.0-0.8) H 05/01/17 20:10 Eos # 0.0 K/mm3 (0.0-0.4) 05/01/17 20:10 Baso # 0.0 K/mm3 (0.0-0.1) 05/01/17 20:10 Add Manual Diff Complete 05/05/17 22:30 Total Counted 200 05/05/17 22:30 Seg Neutrophils % Entry Level Sales Consultant 05/05/17 22:30 Seg Neuts % (Manual) 96.0 % (40.0-70.0) H 05/05/17 22:30 Band Neutrophils % 0 % 05/05/17 22:30 Lymphocytes % (Manual) 2.5 % (13.4-35.0) L 05/05/17 22:30 Reactive Lymphs % (Man) 0 % 05/05/17 22:30 Monocytes % (Manual) 1.5 % (0.0-7.3) 05/05/17 22:30 Eosinophils % (Manual) 0 % (0.0-4.3) 05/05/17 22:30 Basophils % (Manual) 0 % (0.0-1.8) 05/05/17 22:30 Metamyelocytes % 0 % 05/05/17 22:30 Myelocytes % 0 % 05/05/17 22:30 Promyelocytes % 0 % 05/05/17 22:30 Blast Cells % 0 % 05/05/17 22:30 Nucleated RBC % 0.5 % (0.0-0.9) 05/05/17 22:30 Seg Neutrophils # 11.2 K/mm3 (1.8-7.7) H 05/01/17 20:10 Seg Neutrophils # Man 24.6 K/mm3 (1.8-7.7) H 05/05/17 22:30 Band Neutrophils # 0.0 K/mm3 05/05/17 22:30 Lymphocytes # (Manual) 0.6 K/mm3 (1.2-5.4) L 05/05/17 22:30 Abs React Lymphs (Man) 0.0 K/mm3 05/05/17 22:30 Monocytes # (Manual) 0.4 K/mm3 (0.0-0.8) 05/05/17 22:30 Eosinophils # (Manual) 0.0 K/mm3 (0.0-0.4) 05/05/17 22:30 Basophils # (Manual) 0.0 K/mm3 (0.0-0.1) 05/05/17 22:30 Metamyelocytes # 0.0 K/mm3 05/05/17 22:30 Myelocytes # 0.0 K/mm3 05/05/17 22:30 Promyelocytes # 0.0 K/mm3 05/05/17 22:30 Blast Cells # 0.0 K/mm3 05/05/17 22:30 WBC Morphology Not Reportable 05/05/17 22:30 Hypersegmented Neuts Not Reportable 05/05/17 22:30 Hyposegmented Neuts Not Reportable 05/05/17 22:30 Hypogranular Neuts Not Reportable 05/05/17 22:30 Smudge Cells Not Reportable 05/05/17 22:30 Toxic Granulation Not Reportable 05/05/17 22:30 Toxic Vacuolation Not Reportable 05/05/17 22:30 Dohle Bodies Not Reportable 05/05/17 22:30 Pelger-Huet Anomaly Not Reportable 05/05/17 22:30 Hank Rods Not Reportable 05/05/17 22:30 Platelet Estimate Consistent w auto 05/05/17 22:30 Clumped Platelets Not Reportable 05/05/17 22:30 Plt Clumps, EDTA Not Reportable 05/05/17 22:30 Large Platelets Not Reportable 05/05/17 22:30 Giant Platelets Not Reportable 05/05/17 22:30 Platelet Satelliting Not Reportable 05/05/17 22:30 Plt Morphology Comment Not Reportable 05/05/17 22:30 RBC Morphology Not Reportable 05/05/17 22:30 Dimorphic RBCs Not Reportable 05/05/17 22:30 Polychromasia Not Reportable 05/05/17 22:30 Hypochromasia Not Reportable 05/05/17 22:30 Poikilocytosis Not Reportable 05/05/17 22:30 Anisocytosis 1+ 05/05/17 22:30 Microcytosis Not Reportable 05/05/17 22:30 Macrocytosis 1+ 05/05/17 22:30 Spherocytes Not Reportable 05/05/17 22:30 Pappenheimer Bodies Not Reportable 05/05/17 22:30 Sickle Cells Not Reportable 05/05/17 22:30 Target Cells Not Reportable 05/05/17 22:30 Tear Drop Cells Not Reportable 05/05/17 22:30 Ovalocytes Not Reportable 05/05/17 22:30 Helmet Cells Not Reportable 05/05/17 22:30 Lemus-Seabeck Bodies Not Reportable 05/05/17 22:30 Corolla Rings Not Reportable 05/05/17 22:30 Sara Cells Not Reportable 05/05/17 22:30 Bite Cells Not Reportable 05/05/17 22:30 Crenated Cell Not Reportable 05/05/17 22:30 Elliptocytes Not Reportable 05/05/17 22:30 Acanthocytes (Spur) Not Reportable 05/05/17 22:30 Rouleaux Not Reportable 05/05/17 22:30 Hemoglobin C Crystals Not Reportable 05/05/17 22:30 Schistocytes Not Reportable 05/05/17 22:30 Malaria parasites Not Reportable 05/05/17 22:30 John Bodies Not Reportable 05/05/17 22:30 Hem Pathologist Commnt No 05/05/17 22:30 PT 21.4 Sec. (12.2-14.9) H 05/01/17 20:10 INR 1.76 (0.87-1.13) H 05/01/17 20:10 APTT 28.7 Sec. (24.2-36.6) 05/01/17 20:10 D-Dimer 577.80 ng/mlDDU (0-234) H 05/01/17 23:53 POC ABG pH 7.188 (7.35-7.45) L 05/05/17 23:02 ABG pH 7.187 pH Units (7.350-7.450) L* 05/04/17 13:30 POC ABG pCO2 78.1 (35-45) H 05/05/17 23:02 ABG pCO2 78.4 mm Hg 05/04/17 13:30 POC ABG pO2 81 (80-105) 05/05/17 23:02 ABG pO2 50.3 mm Hg (80.0-90.0) L 05/04/17 13:30 POC ABG HCO3 29.7 05/05/17 23:02 ABG HCO3 29.1 mmol/L (20.0-26.0) H 05/04/17 13:30 POC ABG Total CO2 32 05/05/17 23:02 POC ABG O2 Sat 92 05/05/17 23:02 ABG O2 Saturation 75.1 % (95.0-99.0) L 05/04/17 13:30 ABG O2 Content 11.2 (0.0-44) 05/04/17 13:30 POC ABG Base Excess 1 05/05/17 23:02 ABG Base Excess -0.5 mmol/L (-2.0-3.0) 05/04/17 13:30 ABG Hemoglobin 10.8 gm/dl (12.0-16.0) L 05/04/17 13:30 ABG Carboxyhemoglobin 1.5 % (0.0-5.0) 05/04/17 13:30 ABG Methemoglobin 0.5 % (0.0-1.5) 05/04/17 13:30 Oxyhemoglobin 73.6 % (95.0-99.0) L 05/04/17 13:30 FiO2 50 % 05/05/17 23:02 Sodium 151 mmol/L (137-145) H D 05/06/17 04:45 Potassium 5.6 mmol/L (3.6-5.0) H 05/06/17 04:45 Chloride 110.5 mmol/L (98-107) H 05/06/17 04:45 Carbon Dioxide 19 mmol/L (22-30) L 05/06/17 04:45 Anion Gap 27 mmol/L 05/06/17 04:45 BUN 29 mg/dL (7-17) H 05/06/17 04:45 Creatinine 1.0 mg/dL (0.7-1.2) 05/06/17 04:45 Estimated GFR > 60 ml/min 05/06/17 04:45 BUN/Creatinine Ratio 29 % 05/06/17 04:45 Glucose 85 mg/dL (65-100) 05/06/17 04:45 Lactic Acid 1.30 mmol/L (0.7-2.0) 05/04/17 10:50 Calcium 7.5 mg/dL (8.4-10.2) L 05/06/17 04:45 Magnesium 1.90 mg/dL (1.7-2.3) 05/01/17 20:10 Total Bilirubin 0.40 mg/dL (0.1-1.2) 05/04/17 04:29 Direct Bilirubin 0.3 mg/dL (0-0.2) H 05/02/17 05:15 Indirect Bilirubin 0.2 mg/dL 05/02/17 05:15 AST 124 units/L (5-40) H 05/04/17 04:29 ALT 672 units/L (7-56) H 05/04/17 04:29 Alkaline Phosphatase 54 units/L (35-129) 05/04/17 04:29 Total Creatine Kinase 217 units/L (30-135) H 05/01/17 23:53 CK-MB (CK-2) 17.2 ng/mL (0.0-4.0) H 05/01/17 23:53 CK-MB (CK-2) Rel Index 7.9 (0-4) H 05/01/17 23:53 Troponin T 0.040 ng/mL (0.00-0.029) H D 05/04/17 17:19 C-Reactive Protein 2.20 mg/dL (0.00-1.30) H 05/04/17 15:03 Total Protein 4.5 g/dL (6.3-8.2) L D 05/04/17 04:29 Albumin 3.0 g/dL (3.9-5) L 05/04/17 04:29 Albumin/Globulin Ratio 2.0 % 05/04/17 04:29 Triglycerides 77 mg/dL (2-149) 05/01/17 20:10 Cholesterol 91 mg/dL (50-199) 05/01/17 20:10 LDL Cholesterol Direct 39 mg/dL (50-130) L 05/01/17 20:10 HDL Cholesterol 37 mg/dL (40-59) L 05/01/17 20:10 Cholesterol/HDL Ratio 2.45 % 05/01/17 20:10 Urine Color Yellow (Yellow) 05/02/17 04:00 Urine Turbidity Clear (Clear) 05/02/17 04:00 Urine pH 5.0 (5.0-7.0) 05/02/17 04:00 Ur Specific [place] 1.015 (1.003-1.030) 05/02/17 04:00 Urine Protein 30 mg/dl mg/dL (Negative) 05/02/17 04:00 Urine Glucose (UA) Neg mg/dL (Negative) 05/02/17 04:00 Urine Ketones Neg mg/dL (Negative) 05/02/17 04:00 Urine Blood Mod (Negative) 05/02/17 04:00 Urine Nitrite Neg (Negative) 05/02/17 04:00 Urine Bilirubin Neg (Negative) 05/02/17 04:00 Urine Urobilinogen < 2.0 mg/dL (<2.0) 05/02/17 04:00 Ur Leukocyte Esterase Neg (Negative) 05/02/17 04:00 Urine WBC (Auto) 1.0 /HPF (0.0-6.0) 05/02/17 04:00 Urine RBC (Auto) 1.0 /HPF (0.0-6.0) 05/02/17 04:00 U Epithel Cells (Auto) < 1.0 /HPF (0-13.0) 05/02/17 04:00 Hyaline Casts 4 /LPF 05/02/17 04:00 Urine Mucus Few /HPF 05/02/17 04:00 Vancomycin Trough 4.7 ug/mL (5.0-20.0) L 05/04/17 18:45
[2017-05-07] MEDS: LEVOPHED DRIP 4 MG/NS 250 ML 4 MG/250 ML BAG IV SCH ×2 (02:15→03:46)
[2017-05-07] MEDS: DUONEB *Not for PRN Use IH SCH ×3 (04:19→13:58)
--- NOTE | 2017-05-07 10:36 | Progress Note ---
Assessment and Plan Assessment: 1) Severe sepsis with septic shock: worsening still on pressors, leukocytosis better. Etiology unclear. Initial CT head, CXR, UA and blood cx all negative. ? adrenal insufficiency, ?COPD exacerbation, ? occult etiology. CRP=2.4 2) History of colon cancer 3) Left renal mass seen on CT 4) COPD exacerbation 5) Resp failure - worsening Plan: -patient refusing labs drawn and medication, made AND overnight -ok to stop all antibiotics to support patient and family wishes I am signing off Thank you Dr Jimenez for your consultation, will follow up with you. [place] Manuel MD Infectious Diseases Specialist [facility], [place] [facility] ([facility]) M [phone] O [phone] Subjective Date of service: 05/07/17 Principal diagnosis: Severe Sepsis with Shock; Acute hypoxemic respiratory failure, AECOPD Interval history: Lethargic, more SOB, sat dropped due to her removing mask and HR dropped, refusing IV antibiotics. Current Antimicrobials: Zosyn 05/02 Vancomycin 05/01 Previous Antimicrobials: Microbiology: Blood cultures: 05/01 ngtd Urine cultures: 05/02 neg Respiratory cultures: Tracheal asp 05/01 neg Objective - Exam Narrative Exam: General appearance: lethargic in mod resp distress Eyes: anicteric sclerae, moist conjunctivae; no lid-lag; PERRLA HENT: Atraumatic; oropharynx unable to eval Neck: Trachea midline; supple, no thyromegaly or lymphadenopathy Lungs: distal BS brandy wheezing CV: rrr Abdomen: Soft, tense non tender Extremities: No peripheral edema or extremity lymphadenopathy Skin: Normal temperature, turgor and texture; no rash, ulcers or subcutaneous nodules Psych: lethargic. Neuro: lethargic Lines: No CVL / PICC - Constitutional Vitals: Vital Signs Temp Pulse Resp BP Pulse Ox 93.4 F L 54 L 29 H 92/59 94 05/07/17 08:00 05/07/17 08:00 05/07/17 08:00 05/07/17 08:00 05/07/17 08:00 Temperature -Last 24 Hours Temperature 93.4 F Temperature 93.2 F Temperature 93.4 F - Labs CBC & Chem 7: 05/06/17 04:45 05/06/17 04:45
--- NOTE | 2017-05-07 10:59 | Event Note ---
Date: 05/07/17 Patient currently in hospice care. Referral to [facility] hospice has been placed. Patient is very clear and adamant that she does not want any life sustaining measures including NIPPV, and vasopressor support. Will discontinue all blood draws, vasopressors, antibiotics. Use prn narcotics for pain management and anti-emetics.
[2017-05-07] MEDS ORDERED: DILAUDID IV PRN (11:03)
[2017-05-07] MEDS: DILAUDID IV PRN ×2 (12:15→16:57)
--- NOTE | 2017-05-07 12:47 | Progress Note ---
Assessment and Plan Acute respiratory failure s/p extubation Advanced emphysema Hypotension Abnormal electrocardiogram Unchanged from previous one at [facility] Normal LVEF 04/2017 Normal MPI 04/2017 History of colon cancer s/p resection Recent EGD at [place] showing evidence of duodenal ulcer Paroxysmal episode of junctional rhythm that resolved on IV levophed Chronically elevated non-specific troponin AND status Conservative cardiac management. Subjective Date of service: 05/07/17 Principal diagnosis: Severe Sepsis with Shock; Acute hypoxemic respiratory failure, AECOPD Interval history: Patient was made AND status overnight. Objective Vital Signs Temp Pulse Pulse Pulse Resp Resp BP 05/07/17 12:00 71 28 H 98/41 05/07/17 11:00 74 32 H 89/44 05/07/17 10:00 76 28 H 89/44 05/07/17 09:00 76 31 H 101/50 05/07/17 08:00 93.4 F L 75 54 L 29 H 92/59 05/07/17 07:00 77 26 H 95/54 05/07/17 06:00 76 28 H 114/45 05/07/17 05:00 77 23 121/46 05/07/17 04:00 93.2 F L 80 28 H 108/73 05/07/17 03:00 77 27 H 98/65 05/07/17 02:00 79 29 H 113/47 05/07/17 01:00 78 24 98/50 05/07/17 00:16 79 24 118/42 05/07/17 00:00 93.4 F L 81 77 30 H 108/37 05/06/17 23:00 78 22 108/37 05/06/17 22:00 81 23 102/36 05/06/17 21:00 87 24 117/45 05/06/17 20:04 77 21 05/06/17 20:00 73 22 100/44 05/06/17 19:46 75 05/06/17 19:00 74 25 H 114/29 05/06/17 18:00 78 25 H 98/49 05/06/17 17:00 80 22 117/39 05/06/17 16:00 80 22 104/53 05/06/17 15:00 79 25 H 122/30 05/06/17 14:08 75 18 05/06/17 14:00 71 25 H 125/38 05/06/17 13:55 76 18 05/06/17 13:00 70 24 106/32 Pulse Ox 05/07/17 12:00 83 L 05/07/17 11:00 92 05/07/17 10:00 05/07/17 09:00 94 05/07/17 08:00 94 05/07/17 07:00 95 05/07/17 06:00 89 05/07/17 05:00 86 05/07/17 04:00 100 05/07/17 03:00 83 L 05/07/17 02:00 89 05/07/17 01:00 92 05/07/17 00:16 05/07/17 00:00 80 L 05/06/17 23:00 05/06/17 22:00 05/06/17 21:00 05/06/17 20:04 05/06/17 20:00 95 05/06/17 19:46 99 05/06/17 19:00 05/06/17 18:00 05/06/17 17:00 05/06/17 16:00 05/06/17 15:00 50 L 05/06/17 14:08 05/06/17 14:00 92 05/06/17 13:55 05/06/17 13:00 73 L - Physical Examination General: Cachectic, Other (mild distress) Cardiac: Positive: Reg Rate and Rhythm - Imaging and Cardiology EKG: image reviewed
--- NOTE | 2017-05-07 15:05 | Discharge Summary ---
Providers - Providers Date of Admission: 05/01/17 22:48 Date of discharge: 05/07/17 Attending physician: DOM ARREGUIN MD 05/03/17 09:16 Consult to Dietitian/Nutrition [CONS] Routine Physician Instructions: Reason For Exam: Reason for Consult: Write/Manage Tube Feeding 05/04/17 10:11 Consult to Physician [CONS] Routine Consulting Provider: CIRO MCGREGOR Reason For Exam: leucocytosis Place consult to:: Dr. Mcgregor Notified:: yes Was contact made?: Yes Time called:: 12:45 Comment:: spoke with Dr. Chilel 05/04/17 11:31 PICC Line Insertion [Consult to PICC Line RN] [CONS] Routine Reason For Exam: PICC Type Line:: PICC 05/04/17 17:59 Occupational Therapy Evaluate and Treat [CONS] Routine Comment: post fall Reason For Exam: weakness Physical Therapy Evaluation and Treat [CONS] Routine Comment: Post fall Reason For Exam: Weakness 05/06/17 10:28 Consult to Case Management [CONS] Routine Services Needed at Discharge: Other Notified:: no Additional Physician Instructions: Hospice placement Primary care physician: FORM BUILDER HELPER Hospitalization Reason for admission: acute hypoxic respiratory failure, septic shock Condition: Critical Pertinent studies: Chest x-ray no infiltrates, CT head normal findings, bilateral Doppler ultrasound of the legs negative for DVT Procedures: Endotracheal intubation Hospital course: History of present illness: 61-year-old boy was brought to the emergency room for shortness of breath. She was intubated in the emergency room. Spoke with the nieces gave some information, medical records were obtained from [facility]. Patient has a history of hypertension, colon cancer and was recently discharged from [facility]. She was scheduled for EGD and colonoscopy but this was aborted because the patient was found to be hypoxic and short of breath. She was sent to the hospital for admission where she was treated for respiratory failure secondary to COPD, sepsis. Her EGD shows a duodenal ulcer and colonoscopy shows internal and external hemorrhoids. Review of system is unobtainable. Patient was admitted to this hospital for acute hypoxic respiratory failure secondary to COPD exacerbation, pneumonitis and patient was intubated in the emergency department. Patient was in septic shock and she was put on pressors and management in the ICU with broad-spectrum IV antibiotics. Patient didn't show much improvement and family member decided to make her AND. Then she was extubated and put on nonrebreather mask. The patient became hypoxic and acidotic with pH of 7.1. She was on pressors until this morning and this morning family decided to withdraw care and patient transferred to hospice care facility. Patient was critically ill and prognosis is poor. Disposition: [id number] ([facility]) Time spent for discharge: 31 minutes - Discharge Diagnoses (1) Septic shock Status: Acute (2) Respiratory failure Status: Acute Qualifiers: Chronicity: C Respiratory failure complication: R (3) History of colon cancer Status: Chronic Core Measure Documentation - Palliative Care Palliative Care/ Comfort Measures: Not Applicable - Core Measures Any of the following diagnoses?: none Exam - Physical Exam Narrative exam: Patient is in cardiopulmonary distress, she is on non rebreather mask. The patient appeared well nourished and normally developed. Vital signs as documented. Head exam is unremarkable. No scleral icterus . Neck is without jugular venous distension, thyromegaly, or carotid bruits. Lungs are clear to auscultation. Patient is using accessory muscles for breathing. Cardiac exam reveals regular rate and Rhythm. First and second heart sounds normal. No murmurs, rubs or gallops. Abdominal exam reveals normal bowel sounds, no masses, no organomegaly and no aortic enlargement. Extremities are nonedematous and both femoral and pedal pulses are normal. POST CLOSER: Alert and oriented 3. No focal weakness. - Constitutional Vitals: Temp Pulse Resp BP Pulse Ox 94 F L 74 20 98/41 83 L 05/07/17 12:00 05/07/17 14:03 05/07/17 14:03 05/07/17 12:00 05/07/17 12:00 Plan Activity: fall precautions Weight Bearing Status: Non-Weight Bearing Diet: advance as tolerated Follow up with: PRIMARY MD [id number] [Primary Care Provider] - 3-5 Days
[2017-05-07 17:05] VITALS: BP 88/35
[2017-05-08 16:14] LABS: Heparin-Induced Platelet Antib Negative (Negative); Unfractionated Heparin Negative (Negative)
== END 2017-05-07 17:56 | disposition hospice, inpatient (51) | DRG 871 ==
LOC: ED 18:52 → CC1 22:48
PROVIDERS: ADMIT Internal Medicine; ATTEND Internal Medicine
PROC: 5A1945Z Respiratory Ventilation, 24-96 Consecutive Hours (ICD-10-PCS; principal; 2017-05-01)
PROC: 0BH17EZ Insertion of Endotracheal Airway into Trachea, Via Natural or Artificial Opening (ICD-10-PCS; 2017-05-01)
PROC: 4A033R1 Measurement of Arterial Saturation, Peripheral, Percutaneous Approach (ICD-10-PCS; 2017-05-01)
PROC: 3E0234Z Introduction of Serum, Toxoid and Vaccine into Muscle, Percutaneous Approach (ICD-10-PCS; 2017-05-02)
PROC: 02HV33Z Insertion of Infusion Device into Superior Vena Cava, Percutaneous Approach (ICD-10-PCS; 2017-05-02)
PROC: 5A09357 Assistance with Respiratory Ventilation, Less than 24 Consecutive Hours, Continuous Positive Airway Pressure (ICD-10-PCS; 2017-05-05)
DX: A41.9 Sepsis, unspecified organism (principal); J96.01 Acute respiratory failure with hypoxia; J18.9 Pneumonia, unspecified organism; R65.21 Severe sepsis with septic shock; G93.40 Encephalopathy, unspecified; E43 Unspecified severe protein-calorie malnutrition; J44.1 Chronic obstructive pulmonary disease with (acute) exacerbation; E87.0 Hyperosmolality and hypernatremia; D68.9 Coagulation defect, unspecified; I48.92 Unspecified atrial flutter; J90 Pleural effusion, not elsewhere classified; N17.9 Acute kidney failure, unspecified; I10 Essential (primary) hypertension; N28.9 Disorder of kidney and ureter, unspecified; D64.9 Anemia, unspecified; F17.210 Nicotine dependence, cigarettes, uncomplicated; I48.91 Unspecified atrial fibrillation; Z23 Encounter for immunization; Z85.038 Personal history of other malignant neoplasm of large intestine; Z82.49 Family history of ischemic heart disease and other diseases of the circulatory system; Z90.49 Acquired absence of other specified parts of digestive tract; Z68.20 Body mass index [BMI] 20.0-20.9, adult
CPT/HCPCS: 36415; 36600; 70450; 71010; 74000; 80048; 80053; 80061; 80074; 80202; 81001; 82140; 82550; 82553; 82803; 83735; 84484; 85007; 85025; 85027; 85379; 85610; 85730; 86022; 86140; 87040; 87070; 87086; 87205; 90732; 93005; 93010; 93970; 94002; 94003; 94640; 94660; 94760; 96374; 96375; J0282; J0692; J1170; J1650; J2248; J2405; J2543; J2920; J2930; J3010; J3370; J7030; J7040; J7060; J7120